=== PATIENT | female | born 1975 | race Caucasian/White ===

== ENCOUNTER 2017-11-08 09:46 | Emergency (ER) | payer SELFPAY ==
[2017-11-08] MEDS ORDERED: ONDANSETRON 4 MG (ODT) TAB ONE (10:21)
[2017-11-08] MEDS ORDERED: HYDROCODONE/APAP 5/325 MG TAB ONE (10:21)
--- NOTE | 2017-11-08 11:01 | RAD REPORT ---
EXAM DESCRIPTION: RAD - Thumb - 11/08/2017 10:40 am CLINICAL HISTORY: Right thumb pain status post fall FINDINGS: No fracture or dislocation is seen
--- NOTE | 2017-11-08 11:19 | ER ---
Nurse's Notes [facility] Name: Alysa Saldaña Age: 42 yrs Sex: Female : 1975 Arrival Date: 11/08/2017 Time: 09:49 Bed 23 Private MD: None, None Diagnosis: Unspecified sprain of right thumb Presentation: 11/08 09:51 Presenting complaint: Patient states: i fell Tuesday, slipped and fell and hurt my R hj thumb, swelling and pain is getting worse; pain is 6/10; reports tingling on the area; denies hitting head and LOC;. Transition of care: patient was not received from another setting of care. Onset of symptoms was November 08, 2017. Risk Assessment: Do you want to hurt yourself or someone else? Patient reports no desire to harm self or others. Initial Sepsis Screen: Does the patient meet any 2 criteria? No. Patient's initial sepsis screen is negative. Does the patient have a suspected source of infection? No. Patient's initial sepsis screen is negative. Care prior to arrival: None. 09:51 Method Of Arrival: Ambulatory 09:51 Acuity: CHETAN 4 hj Triage Assessment: 09:53 General: Appears in no apparent distress. uncomfortable, Behavior is calm, cooperative, hj appropriate for age. Pain: Complains of pain in palmar aspect of distal phalanx of right thumb and palmar aspect of proximal phalanx of right thumb. Musculoskeletal: Reports pain in palmar aspect of distal phalanx of right thumb and palmar aspect of proximal phalanx of right thumb. 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 - Social history:: Smoking status: Patient/guardian denies using tobacco, Patient/guardian denies using alcohol, Smoking status: Patient uses tobacco products. - Ebola Screening: : Patient negative for fever greater than or equal to 101.5 degrees Fahrenheit, and additional compatible Ebola Virus Disease symptoms Patient denies exposure to infectious person Patient denies travel to an Ebola-affected area in the 21 days before illness onset. Screenin:53 Abuse screen: Denies threats or abuse. Denies injuries from another. Nutritional hj screening: No deficits noted. Tuberculosis screening: No symptoms or risk factors identified. Fall Risk None identified. Assessment: 10:00 General: Appears in no apparent distress. comfortable, Behavior is calm, cooperative, aj appropriate for age. Pain: Complains of pain in palmar aspect of proximal phalanx of right thumb and palmar aspect of distal phalanx of right thumb. Neuro: Level of Consciousness is awake, alert, obeys commands, Oriented to person, place, time, situation, Appropriate for age. Respiratory: Airway is patent Respiratory effort is even, unlabored, Respiratory pattern is regular, symmetrical. Derm: Skin is intact, is healthy with good turgor, Skin is pink, warm \T\ dry. normal. Musculoskeletal: Capillary refill < 3 seconds, in bilateral fingers. Swelling present in palmar aspect of distal phalanx of right thumb Reports pain in palmar aspect of proximal phalanx of right thumb and palmar aspect of distal phalanx of right thumb. Vital Signs: 09:54 BP 162 / 100; Pulse 102; Resp 18; Temp 97.8(TE); Pulse Ox 98% on R/A; Weight 86.18 kg; hj Height 5 ft. 4 in. (162.56 cm); Pain 8/10; 11:29 BP 160 / 98; Pulse 99; Resp 16; Pulse Ox 99% on R/A; aj 09:54 Body Mass Index 32.61 (86.18 kg, 162.56 cm) ED Course: 09:49 Patient arrived in ED. mr 09:50 None, None is Private Physician. mr 09:52 Triage completed. hj 09:54 Arm band placed on left wrist. hj 09:55 Patient has correct armband on for positive identification. Bed in low position. Call light in reach. Side rails up X 1. 09:57 Carlota Eduardo, RICHARD is Primary Nurse. aj 10:00 Rashid Solis NP is PHCP. pm1 10:00 Imtiaz Drake MD is Attending Physician. pm1 10:40 Thumb In Process Unspecified. EDMS 10:41 X-ray completed. Portable x-ray completed in exam room. jr1 11:17 Dez Aguiar MD is Referral Physician. pm1 11:29 No provider procedures requiring assistance completed. Patient did not have IV access aj during this emergency room visit. Orthoglass splint: Thumb spica splint applied on right forearm. Done by [facility] Tech. Administered Medications: 10:17 Drug: [place] 5 mg-325 mg 1 tabs Route: PO; aj 11:28 Follow up: Response: No adverse reaction; Pain is decreased aj 10:17 Drug: Zofran 4 mg Route: PO; aj 11:28 Follow up: Response: Pain is decreased aj Outcome: 11:18 Discharge ordered by . pm1 11:29 Discharged to home ambulatory, with family. aj 11: Condition: good 11:29 Discharge instructions given to patient, family, Instructed on discharge instructions, follow up and referral plans. medication usage, Demonstrated understanding of instructions, follow-up care, medications, splint care, Prescriptions given X 1. 11:30 Patient left the ED. thelma Signatures: Dispatcher [employer] EDMS Carlota Eduardo RN RN aj Rivera, Maria mr Ringgold, Jennifer 1 Tirso Bell RN RN hj Marinas, Patrick, NP COMPUTER SUPPORT ANALYST pm1 Corrections: (The following items were deleted from the chart) 09:56 09:54 Pulse 102bpm; Resp 18bpm; Pulse Ox 98% RA; Temp 97.8F Temporal; 86.18 kg; Height hj 5 ft. 4 in.; BMI: 32.6; Pain 8/10; hj
--- NOTE | 2017-11-08 11:19 | EDPHYS ---
Physician Documentation [facility] Name: Alysa Saldaña Age: 42 yrs Sex: Female : 1975 Arrival Date: 11/08/2017 Time: 09:49 Bed 23 Private MD: None, None ED Physician Imtiaz Drake HPI: 11/08 11:14 This 42 yrs old Female presents to ER via Ambulatory with complaints of Right pm1 Thumb Injury. 11:14 The patient or guardian reports pain. The complaints affect the IP of right thumb and pm1 MCP of right thumb. Context: The problem was sustained outdoors, resulted from a fall, from a standing position. 11:15 Onset: The symptoms/episode began/occurred 2 day(s) ago. Modifying factors: The pm1 symptoms are alleviated by elevation, resting, the symptoms are aggravated by movement. Associated signs and symptoms: Pertinent negatives: cyanosis distally, decreased sensation distally, fever, numbness distally, tingling distally. Severity of symptoms: in the emergency department the symptoms are unchanged. The patient has not experienced similar symptoms in the past. The patient has not recently seen a physician. Patient standing and fell on her right hand due to slipping. Patient with pain to the right thumb. 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 - Social history:: Smoking status: Patient/guardian denies using tobacco, Patient/guardian denies using alcohol, Smoking status: Patient uses tobacco products. - Ebola Screening: : Patient negative for fever greater than or equal to 101.5 degrees Fahrenheit, and additional compatible Ebola Virus Disease symptoms Patient denies exposure to infectious person Patient denies travel to an Ebola-affected area in the 21 days before illness onset. ROS: 11:15 Constitutional: Negative for fever, chills, and weight loss, Eyes: Negative for injury, pm1 pain, redness, and discharge, ENT: Negative for injury, pain, and discharge, Neck: Negative for injury, pain, and swelling, Cardiovascular: Negative for chest pain, palpitations, and edema, Respiratory: Negative for shortness of breath, cough, wheezing, and pleuritic chest pain, Abdomen/GI: Negative for abdominal pain, nausea, vomiting, diarrhea, and constipation, Back: Negative for injury and pain. 11:15 Skin: Negative for injury, rash, and discoloration, Neuro: Negative for headache, weakness, numbness, tingling, and seizure. 11:15 MS/extremity: Positive for pain, tenderness, of the right hand and MCP of right thumb and IP of right thumb, Negative for decreased range of motion, deformity. Exam: 11:15 Constitutional: This is a well developed, well nourished patient who is awake, alert, pm1 and in no acute distress. Head/Face: Normocephalic, atraumatic. Eyes: Pupils equal round and reactive to light, extra-ocular motions intact. Lids and lashes normal. Conjunctiva and sclera are non-icteric and not injected. Cornea within normal limits. Periorbital areas with no swelling, redness, or edema. ENT: Nares patent. No nasal discharge, no septal abnormalities noted. Tympanic membranes are normal and external auditory canals are clear. Oropharynx with no redness, swelling, or masses, exudates, or evidence of obstruction, uvula midline. Mucous membranes moist. Neck: Trachea midline, no thyromegaly or masses palpated, and no cervical lymphadenopathy. Supple, full range of motion without nuchal rigidity, or vertebral point tenderness. No Meningismus. Chest/axilla: Normal chest wall appearance and motion. Nontender with no deformity. No lesions are appreciated. Cardiovascular: Regular rate and rhythm with a normal S1 and S2. No gallops, murmurs, or rubs. Normal PMI, no JVD. No pulse deficits. Respiratory: Lungs have equal breath sounds bilaterally, clear to auscultation and percussion. No rales, rhonchi or wheezes noted. No increased work of breathing, no retractions or nasal flaring. Abdomen/GI: Soft, non-tender, with normal bowel sounds. No distension or tympany. No guarding or rebound. No evidence of tenderness throughout. Back: No spinal tenderness. No costovertebral tenderness. Full range of motion. Skin: Warm, dry with normal turgor. Normal color with no rashes, no lesions, and no evidence of cellulitis. 11:15 Musculoskeletal/extremity: Extremities: grossly normal except: noted in the IP of right thumb and MCP of right thumb: tenderness, ROM: intact in all extremities, Circulation is intact in all extremities. Sensation intact. Vital Signs: 09:54 BP 162 / 100; Pulse 102; Resp 18; Temp 97.8(TE); Pulse Ox 98% on R/A; Weight 86.18 kg; hj Height 5 ft. 4 in. (162.56 cm); Pain 8/10; 11:29 BP 160 / 98; Pulse 99; Resp 16; Pulse Ox 99% on R/A; aj 09:54 Body Mass Index 32.61 (86.18 kg, 162.56 cm) hj MDM: 10:00 Patient medically screened. pm1 11:17 Data reviewed: vital signs. Data interpreted: Pulse oximetry: on room air is 98 %. pm1 Interpretation: normal. Counseling: I had a detailed discussion with the patient and/or guardian regarding: the historical points, exam findings, and any diagnostic results supporting the discharge/admit diagnosis, radiology results, the need for outpatient follow up, to return to the emergency department if symptoms worsen or persist or if there are any questions or concerns that arise at home. 11/08 10:40 Order name: Thumb; Complete Time: 11:09 EDNE 11/08 10:11 Order name: Thumb Spica Splint; Complete Time: 11:28 pm1 Administered Medications: 10:17 Drug: [place] 5 mg-325 mg 1 tabs Route: PO; aj 11:28 Follow up: Response: No adverse reaction; Pain is decreased aj 10:17 Drug: Zofran 4 mg Route: PO; aj 11:28 Follow up: Response: Pain is decreased aj Disposition: 11/09 06:35 Co-signature as Attending Physician, Imtiaz Drake MD I agree with the assessment and joseph plan of care. Disposition: 11/08/17 11:18 Discharged to Home. Impression: Unspecified sprain of right thumb. - Condition is Stable. - Discharge Instructions: Cast or Splint Care, Adult, Finger Sprain, Adult. - Prescriptions for Tylenol- Codeine #3 300-30 mg Oral Tablet - take 2 tablets by ORAL route every 6 hours As needed; 20 tablet. - Medication Reconciliation Form, Thank You Letter, Antibiotic Education, Prescription Opioid Use form. - Follow up: Emergency Department; When: As needed; Reason: Worsening of condition. Follow up: Dez Aguiar MD; When: 5 - 6 days; Reason: Recheck today's complaints, Continuance of care, Re-evaluation by your physician. - Problem is new. - Symptoms have improved. Signatures: Dispatcher [employer] [facility] Carlota Eduardo RN RN aj Anderson, Corey, MD MD cha Joaquin, Henry, RN RN hj Marinas, Patrick, PRE FABRICATOR PRE FABRICATOR pm1 Corrections: (The following items were deleted from the chart) 11/08 10:40 10:03 Hand Right 3 View+RAD.RAD.BRZ ordered. [facility] 11:30 11:18 11/08/2017 11:18 Discharged to Home. Impression: Unspecified sprain of right aj thumb. Condition is Stable. Forms are Medication Reconciliation Form, Thank You Letter, Antibiotic Education, Prescription Opioid Use. Follow up: Emergency Department; When: As needed; Reason: Worsening of condition. Follow up: Dez Aguiar; When: 5 - 6 days; Reason: Recheck today's complaints, Continuance of care, Re-evaluation by your physician. Problem is new. Symptoms have improved. pm1
== END 2017-11-08 11:30 | disposition home or self-care (01) ==
LOC: ER 09:46
DX: S63.601A Unspecified sprain of right thumb, initial encounter (principal); W19.XXXA Unspecified fall, initial encounter; Y93.9 Activity, unspecified; Y92.89 Other specified places as the place of occurrence of the external cause; Z72.0 Tobacco use
CPT/HCPCS: 99284

== ENCOUNTER 2017-12-30 16:09 | Emergency (ER) | payer SELFPAY ==
--- OUTSIDE RECORDS SUMMARY | 2017-12-30 16:12 | XMS REPORT | Clinical Summary ---
:1975 Author Organization [facility] Address [address] [place] [address] Care Team Providers Name Role Phone Unavailable Primary Care Provider Unavailable Allergies No Known Allergies Current Medications Prescription Sig. Disp. Refills Start Date End Date Status acetaminophen-codeine Take 1 tablet by 30 tablet 0 07/14/2016 Active (TYLENOL/CODEINE #3) mouth every 4 300-30 mg per hours as needed tabletIndications: Pain for Pain. of left upper extremity ibuprofen (MOTRIN) 800 Take 1 tablet by 30 tablet 0 07/14/2016 Active mg tabletIndications: mouth every 8 Pain of left upper hours as needed extremity for Pain. Active Problems Problem Noted Date Pain of left upper extremity Encounters Date Type Specialty Care Team Description 10/25/2017 - Emergency Emergency Medicine Anamaria Ybarra, Epigastric pain (Primary Dx); 10/26/2017 Non-intractable vomiting with nausea, unspecified vomiting type after 12/29/2016 Social History Tobacco Use Types Packs/Day Years Used Date Never Assessed Sex Assigned at Date Recorded Not on file Last Filed Vital Signs Vital Sign Reading Time Taken Blood Pressure 174/104 10/26/2017 3:50 AM CDT Pulse 66 10/26/2017 3:50 AM CDT Temperature 37.3 C (99.1 F) 10/26/2017 3:50 AM CDT Respiratory Rate 15 10/26/2017 3:50 AM CDT Oxygen Saturation 98% 10/26/2017 3:50 AM CDT Inhaled Oxygen Concentration - - Weight 91.2 kg (201 lb 1.6 oz) 10/25/2017 9:43 PM CDT Height - - Body Mass Index - - Plan of Treatment Health Maintenance Due Date Last Done Comments Breast Cancer Scrn (Yearly) 2014 IMM Influenza Seasonal Nov to April (>/=19 11/28/2017 yrs) Cervical Cancer Scrn (3 Yrs) 10/25/2020 10/25/2017, 10/25/2017 Procedures Procedure Name Priority Date/Time Associated Diagnosis Comments TROPONIN I POC Routine 10/26/2017 1:54 AM Results for this CDT procedure are in the results section. 12 LEAD EKG Routine 10/26/2017 12:02 AM Results for this CDT procedure are in the results section. XRAY CHEST 1 VIEW STAT 10/25/2017 11:58 PM Epigastric pain Results for this CDT procedure are in the results section. BMP POC Routine 10/25/2017 11:22 PM Results for this CDT procedure are in the results section. TROPONIN I POC Routine 10/25/2017 11:03 PM Results for this CDT procedure are in the results section. PT/INR/PTT STAT 10/25/2017 10:58 PM Results for this CDT procedure are in the results section. LIPASE STAT 10/25/2017 10:58 PM Results for this CDT procedure are in the results section. LIVER PROFILE STAT 10/25/2017 10:58 PM Results for this CDT procedure are in the results section. CBC/DIFF STAT 10/25/2017 10:58 PM Results for this CDT procedure are in the results section. 12 LEAD EKG Routine 10/25/2017 9:49 PM Results for this CDT procedure are in the results section. after 12/29/2016 Results TROPONIN I POC (10/26/2017 1:54 AM)Only the most recent of2 resultswithin the time period is included. 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 Otherwise, no acute cardiopulmonary disease. Signed By: Kenrick French MD, 10/26/2017 12:50 AM Narrative Performed At [facility] EXAM: XR CHEST 1 VIEW DATE:10/26/2017 12:04 AM INDICATION: epigastric pain COMPARISON: None TECHNIQUE:Single frontal view of the chest DISCUSSION:The lungs are clear. The heart is not enlarged and the pulmonary vasculature is normal. There is no pneumothorax nor excess pleural fluid. Mildly displaced left posterior third through sixth rib fractures, with evidence of callus formation. Cervical fusion hardware partially visualized. Procedure Note Interface, Rad/Mammog In - 10/26/2017 12:55 AM CDT EXAM: XR CHEST 1 VIEW DATE: 10/26/2017 12:04 AM INDICATION: epigastric pain COMPARISON: None TECHNIQUE: Single frontal view of the chest DISCUSSION: The lungs are clear. The heart is not enlarged and the pulmonary vasculature is normal. There is no pneumothorax nor excess pleural fluid. Mildly displaced left posterior third through sixth rib fractures, with evidence of callus formation. Cervical fusion hardware partially visualized. IMPRESSION IMPRESSION: Subacute left posterior third through sixth rib fractures. Otherwise, no acute cardiopulmonary disease. Signed By: Kenrick French MD, 10/26/2017 12:50 AM Performing Organization Address [facility] Phone Number [facility] BMP POC (10/25/2017 11:22 PM) CO2 POC 29Comment: Physician 21 - 32 mmol/L [facility] 1 Notified Chloride POC 102 98 - 107 mmol/L [facility] 1 Potassium POC 3.5 3.50 - 5.10 mmol/L [facility] 1 Sodium POC 142 136 - 145 mmol/L [facility] 1 Glucose POC 79 74 - 106 mg/dL [facility] 1 Urea Nitrogen POC 4 (L) 7 - 18 mg/dL [facility] 1 Creatinine POC 0.7 0.6 - 1.3 mg/dL [facility] 1 Calcium Ionized POC 1.18 1.15 - 1.29 mmol/L [facility] 1 Hemoglobin POC 15.3 12.0 - 16.0 g/dL [facility] 1 Hematocrit POC 45.0 37.0 - 47.0 % [facility] GFR, Estimated >60 mL/min/1.73 m2 [facility] 1 GFR, Estim, Afr-Am >60 mL/min/1.73 m2 [facility] 1 Performing Organization Address [facility] Phone Number [facility] 1 PT/INR/PTT (10/25/2017 10:58 PM) PT 11.8 11.8 - 15.0 Seconds [facility] IN[facility] 0.9 [facility] 2 SUGGESTED THERAPEUTIC RANGES: INR 2.0-3.0 for MODERATE INTENSITY ANTICOAGULATION INR 2.5-3.5 for HIGH INTENSITY ANTICOAGULATION PTT 29.3 23.6 - 36.4 Seconds [facility] 2 Specimen Blood Performing Organization Address [facility] Phone [facility] 2 LIVER PROFILE (10/25/2017 10:58 PM) T Protein 7.7 6.4 - 8.2 g/dL [facility] 2 Albumin 3.5 3.4 - 5.0 g/dL [facility] 2 T Bilirubin 0.4 0.2 - 1.0 mg/dL [facility] 2 Alk Phos 163 (H) 45 - 117 U/L [facility] 2 AST 151 (H) 15 - 37 U/L [facility] 2 ALT 201 (H) 12 - 78 U/L [facility] 2 D Bilirubin 0.1 0.0 - 0.2 mg/dL [facility] 2 Specimen Blood Performing Organization Address [facility] Phone Number [facility] 2 LIPASE (10/25/2017 10:58 PM) Lipase 334 73 - 393 U/L [facility] 2 Specimen Blood Performing Organization Address [facility] Phone Number [facility] 2 CBC/DIFF (10/25/2017 10:58 PM) WBC 11.5 (H) 4.5 - 11.0 K/uL [facility] 2 RBC 4.74 4.20 - 5.40 M/uL [facility] 2 Hemoglobin 14.3 12.0 - 16.0 g/dL [facility] 2 Hematocrit 43.3 37.0 - 47.0 % [facility] 2 MCV 91 82 - 92 fL [facility] 2 MCH 30.2 27.0 - 32.0 pg [facility] 2 MCHC 33.0 32.0 - 36.0 g/dL [facility] 2 RDW 52.3 (H) 36.4 - 46.3 fL [facility] 2 Platelet 211 150 - 400 K/uL [facility] 2 Mean Platelet Volume 11.6 9.4 - 12.4 fL [facility] 2 Percent NRBC 0.0 [facility] 2 Absolute NRBC 0.00 [facility] 2 Neutrophil 63.9 34.0 - 70.0 % [facility] 2 Lymphocyte 25.6 20.0 - 50.0 % [facility] 2 Monocyte 8.9 5.0 - 12.0 % [facility] 2 Eosinophil 1.0 0.7 - 5.0 % [facility] 2 Basophil 0.3 0.1 - 1.2 % [facility] 2 Pct Immat Gran 0.3 0.0 - 0.5 [facility] 2 Neutrophil, Abs 7.36 (H) 1.56 - 6.13 K/uL [facility] 2 Lymphocyte, Abs 2.95 1.18 - 3.74 K/uL [facility] 2 Monocyte, Abs 1.03 (H) 0.24 - 0.36 K/uL [facility] 2 Eosinophil, Abs 0.12 0.04 - 0.36 K/uL [facility] 2 Basophil, Abs 0.03 0.01 - 0.08 K/uL [facility] 2 Absol Immat Gran 0.03 0.00 - 0.03 K/uL [facility] 2 Specimen Blood Performing Organization Address City/State/Zipcode Phone Number MISYS [facility] 2 12 LEAD EKG (10/25/2017 9:49 PM) 12 LEAD EKG FOR [facility] SMS Test Date:2017-10-25 Pat Name: DG SALDAÑA Department: : 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
--- OUTSIDE RECORDS SUMMARY | 2017-12-30 16:12 | XMS REPORT ---
:1975 [facility] [address] [place] [address] Care Team Providers Name Role Phone [facility] Unavailable Unavailable Payers Payer Name Policy Type Policy Number Effective Date Expiration Date Problems This patient has no known problems. Allergies, Adverse Reactions, Alerts Allergy Allergy Status Severity Reaction(s) Onset Inactive Treating Comments Name Type Date Date Clinician No Known DA Active U 2017-09 Allergies 00:00:0 0 Medications This patient has no known medications. Encounters Start End Encounter Admission Attending Care Care Encounter Date/Time Date/Time Type Type Clinicians Facility Department ID 2017-10-25 2017-10-25 Emergency [facility] [id number] 23:30:27 23:30:27 2017-10-25 2017-10-25 Emergency [facility] [id number] 21:51:50 21:51:50 2016-07-14 2016-07-14 Emergency [facility] [id number] 14:16:54 14:16:54 2016-07-14 2016-07-14 Emergency [facility] [id number] 11:09:42 11:09:42 Results Test Description Test Time Test Comments Text Results Atomic Results Result Comments HEPATIC FUNCTION PANEL 2017-10-27 04:12:00 Test Item Value Reference Range Comments TOTAL PROTEIN (BEAKER) (test aukm=019) 6.7 gm/dL 6.0-8.3 Specimen slightly hemolyzed ALBUMIN (BEAKER) (test rkho=8347) 3.4 g/dL 3.5-5.0 Specimen slightly hemolyzed BILIRUBIN TOTAL (BEAKER) (test 0.3 mg/dL 0.2-1.2 Specimen slightly hemolyzed sqhu=168) BILIRUBIN DIRECT (BEAKER) (test 0.1 mg/dL 0.1-0.5 Specimen slightly hemolyzed gzzc=191) ALKALINE PHOSPHATASE (BEAKER) (test 126 U/L 40-150 lvlp=003) AST (SGOT) (BEAKER) (test lssg=404) 101 U/L 5-34 Specimen slightly hemolyzed ALT (SGPT) (BEAKER) (test omhu=304) 142 U/L 6-55 Specimen slightly hemolyzed TROPONIN [id number] 20:53:00 Test Item Value Reference Range Comments TROPONIN I (BEAKER) (test fynq=891) < ng/mL 0.00-0.03 Troponin I (TnI) levels must be interpreted in the context of the presenting symptoms and the clinical findings. Elevated TnI levels indicate myocardial damage, but are not specific for ischemic heart disease. Elevated TnI levels are seen in patients with other cardiac conditions (including myocarditis and congestive heart failure), and slight TnI elevations occur in patients with other conditions, including sepsis, renal failure, acidosis, acute neurological disease, and persistent tachyarrhythmia.CT, [id number] 16:46:00PO contrastFINAL REPORT INDICATION:42-year-old female with epigastric abdominal pain. COMPARISON: None. TECHNIQUE: CT of the Abdomen and Pelvis WITH intravenous contrast. Enteric contrast was used. The exam was performed according to our department dose-optimization protocol, which includes automated exposure control, adjustments of mA and kV according to patient size. Iterative reconstructions are also sometimes employed. FINDINGS: There is a small amount of fluid in the stomach allowingpartial visualization of the mucosa. No gastric mucosal abnormality demonstrated. The duodenum is collapsed. No gross duodenal abnormality. No perigastric or paraduodenal stranding. No peripancreatic stranding. Patient is status post cholecystectomy. There is no biliary ductal dilatation. Liver, spleen, adrenal glands, kidneys, bladder are unremarkable. Patient is status post hysterectomy. Jejunum, ileum, and colon are unremarkable. Appendix is not identified; there is no secondary evidence of appendicitis. No peritoneal free fluid or free air. There is severe atherosclerosis of the infrarenal abdominal aorta and there are patent stents in both common iliac arteries. No suspicious osseous lesion demonstrated. Moderate to severe disc space and endplate degenerative change at L5-S1 noted. Lower thorax unremarkable. IMPRESSION: No CT explanation for the patient's epigastric pain. Specifically no CTevidence of pancreatitis or duodenitis. No gastric ulcer or evidence of gastritis (though stomach not well distended and therefore not well evaluated). Severe atherosclerosis of the infrarenal abdominal aorta with patent stents in both common iliac arteries. Prior cholecystectomy and hysterectomy. Signed: Tigist Boswell MDReport Verified Date/Time: 10/26/2017 16:46:44 Reading Location: [facility] Diagnostic Imaging Reading Room - [place] [id number] HEPATITIS PANEL, [id number] 10:50:00 Test Item Value Reference Range Comments HEPATITIS A IGM ANTIBODY (BEAKER) (test Nonreactive Nonreactive zywo=978) HEPATITIS B CORE IGM ANTIBODY (BEAKER) (test Nonreactive Nonreactive cxhp=693) HEPATITIS C ANTIBODY (BEAKER) (test fmue=778) Reactive Nonreactive HEPATITIS B SURFACE ANTIGEN (2) (BEAKER) (test Nonreactive Nonreactive lmle=6267) TROPONIN [id number] 08:46:00 Test Item Value Reference Range Comments TROPONIN I (BEAKER) (test wfzl=205) < ng/mL 0.00-0.03 Troponin I (TnI) levels must be interpreted in the context of the presenting symptoms and the clinical findings. Elevated TnI levels indicate myocardial damage, but are not specific for ischemic heart disease. Elevated TnI levels are seen in patients with other cardiac conditions (including myocarditis and congestive heart failure), and slight TnI elevations occur in patients with other conditions, including sepsis, renal failure, acidosis, acute neurological disease, and persistent tachyarrhythmia.[id number] 08:38:00 Test Item Value Reference Range Comments MAGNESIUM (BEAKER) (test jbsa=114) 1.9 mg/dL 1.6-2.6 BASIC METABOLIC [id number] 08:38:00 Test Item Value Reference Range Comments SODIUM (BEAKER) (test 138 meq/L 136-145 osag=028) POTASSIUM (BEAKER) (test 3.5 meq/L 3.5-5.1 nhtp=958) CHLORIDE (BEAKER) (test 105 meq/L 98-107 kbpw=835) CO2 (BEAKER) (test 25 meq/L 22-29 ixzn=315) BLOOD UREA NITROGEN 7 mg/dL 7-21 (BEAKER) (test anlj=944) CREATININE (BEAKER) (test 0.76 mg/dL 0.57-1.25 syec=652) GLUCOSE RANDOM (BEAKER) 100 mg/dL 70-105 (test ydhr=250) CALCIUM (BEAKER) (test 9.1 mg/dL 8.4-10.2 wtfc=539) EGFR (BEAKER) (test 83 mL/min/1.73 sq m ESTIMATED GFR IS NOT uigm=9977) ACCURATE CREATININE CLEARANCE IN PREDICTING GLOMERULAR FILTRATION RATE. ESTIMATED GFR IS NOT APPLICABLE FOR DIALYSIS PATIENTS. HEPATIC FUNCTION [id number] 08:38:00 Test Item Value Reference Range Comments TOTAL PROTEIN (BEAKER) (test klkq=954) 6.8 gm/dL 6.0-8.3 ALBUMIN (BEAKER) (test ncqm=3659) 3.7 g/dL 3.5-5.0 BILIRUBIN TOTAL (BEAKER) (test ojnb=346) 0.3 mg/dL 0.2-1.2 BILIRUBIN DIRECT (BEAKER) (test mqtb=350) 0.2 mg/dL 0.1-0.5 ALKALINE PHOSPHATASE (BEAKER) (test meaa=721) 138 U/L 40-150 AST (SGOT) (BEAKER) (test wzxa=162) 109 U/L 5-34 ALT (SGPT) (BEAKER) (test myqn=784) 154 U/L 6-55 [id number] 08:38:00 Test Item Value Reference Range Comments LIPASE (BEAKER) (test hyef=447) 73 U/L 8-78 CBC W/PLT COUNT & AUTO [id number] 08:20:00 Test Item Value Reference Range Comments WHITE BLOOD CELL COUNT (BEAKER) (test eqft=739) 8.8 K/ L 3.5-10.5 RED BLOOD CELL COUNT (BEAKER) (test eqtc=005) 4.33 M/ L 3.93-5.22 HEMOGLOBIN (BEAKER) (test bmxo=766) 13.0 GM/DL 11.2-15.7 HEMATOCRIT (BEAKER) (test pgtx=992) 39.9 % 34.1-44.9 MEAN CORPUSCULAR VOLUME (BEAKER) (test unfq=369) 92.1 fL 79.4-94.8 MEAN CORPUSCULAR HEMOGLOBIN (BEAKER) (test 30.0 pg 25.6-32.2 kayy=438) MEAN CORPUSCULAR HEMOGLOBIN CONC (BEAKER) (test 32.6 GM/DL 32.2-35.5 hfau=773) RED CELL DISTRIBUTION WIDTH (BEAKER) (test 15.8 % 11.7-14.4 wmfb=317) PLATELET COUNT (BEAKER) (test vjtf=874) 188 K/CU MM 150-450 MEAN PLATELET VOLUME (BEAKER) (test ukmc=568) 10.8 fL 9.4-12.3 NUCLEATED RED BLOOD CELLS (BEAKER) (test 0 /100 WBC 0-0 etax=456) NEUTROPHILS RELATIVE PERCENT (BEAKER) (test 48 % awur=083) LYMPHOCYTES RELATIVE PERCENT (BEAKER) (test 40 % erpc=140) MONOCYTES RELATIVE PERCENT (BEAKER) (test 9 % gyue=804) EOSINOPHILS RELATIVE PERCENT (BEAKER) (test 2 % olkn=441) BASOPHILS RELATIVE PERCENT (BEAKER) (test 0 % moae=902) NEUTROPHILS ABSOLUTE COUNT (BEAKER) (test 4.22 K/ L 1.56-6.13 nxfh=523) LYMPHOCYTES ABSOLUTE COUNT (BEAKER) (test 3.56 K/ L 1.18-3.74 sqyf=792) MONOCYTES ABSOLUTE COUNT (BEAKER) (test 0.83 K/ L 0.24-0.36 cped=623) EOSINOPHILS ABSOLUTE COUNT (BEAKER) (test 0.16 K/ L 0.04-0.36 hggk=701) BASOPHILS ABSOLUTE COUNT (BEAKER) (test 0.03 K/ L 0.01-0.08 owwz=190) IMMATURE GRANULOCYTES-RELATIVE PERCENT (BEAKER) 0 % 0-1 (test ipxr=0689)
--- OUTSIDE RECORDS SUMMARY | 2017-12-30 16:12 | XMS REPORT | Clinical Summary ---
:1975 Author Organization [facility] Address [address] [place] [address] Care Team Providers Name Role Phone Pcp, No Primary Care Provider Unavailable Allergies No Known Allergies Medications Medication Sig Dispensed Refills Start Date End Date Status gabapentin Take 200 mg by 0 Active (NEURONTIN) 100 MG mouth 3 (three) capsule times daily. aspirin 81 MG EC Take 81 mg by 0 Active tablet mouth daily. clopidogrel Take 75 mg by 0 Active (PLAVIX) 75 mg mouth daily. tablet temazepam Take 15 mg by 0 Active (RESTORIL) 15 mg mouth every capsule night as needed for Sleep. naproxen Take 220 mg by 0 10/26/2017 Discontinued (ALEVE,ANAPROX,MID mouth 2 (two) OL) 220 MG tablet times daily with breakfast and dinner. triamterene-hydroc Take 1 tablet 0 10/26/2017 Discontinued hlorothiazide by mouth daily. (MAXZIDE-25) 37.5-25 mg per tabletIndications: Edema metoprolol Take 1 tablet 30 tablet 3 10/28/2017 11/27/2017 (TOPROL-XL) 25 MG (25 mg total) 24 hr tablet by mouth daily for 30 days. HYDROcodone-acetam Take 1 tablet 30 tablet 0 10/27/2017 11/06/2017 inophen (NORCO by mouth every 5-325) 5-325 mg 6 (six) hours per tablet as needed for Pain for up to 10 days. Max Daily Amount: 4 tablets Active Problems Problem Noted Date Other chronic pain 10/27/2017 Coronary artery disease involving [place] coronary artery of [place] heart 10/26 without angina pectoris Peripheral vascular disease 10/26/2017 Chronic hepatitis C without hepatic coma 10/26/2017 Epigastric pain 10/26/2017 Transaminitis 10/26/2017 Epigastric abdominal pain 10/26/2017 Encounters Date Type Specialty Care Team Description 10/26/2017 - Hospital Encounter General Internal Isela Linares Chronic hepatitis C without hepatic coma (HCC); 10/27/2017 Medicine Nusrat Mcclain, Coronary artery disease involving umkumi[place] coronary artery of [place] heart without angina pectoris; Epigastric abdominal pain; Bridgett, Peripheral vascular disease (HCC); Jaimie Transaminitis MD [address], Kaia Carnes MD after 12/29/2016 Social History Tobacco Use Types Packs/Day Years Used Date Current Every Day Smoker Smokeless Tobacco: Never Used Tobacco Cessation: Ready to Quit: Yes; Counseling Given: No Comments: has cut down to 1/2 ppd.states attempting to quit Alcohol Use Drinks/Week oz/Week Comments No Sex Assigned at Date Recorded Not on file Job Start Date Occupation Industry Not on file Not on file Not on file Travel History Travel Start Travel End No recent travel history available. Last Filed Vital Signs Vital Sign Reading Time Taken Blood Pressure 134/94 10/27/2017 8:51 AM CDT Pulse 99 10/27/2017 8:51 AM CDT Temperature 36.1 C (97 F) 10/27/2017 8:51 AM CDT Respiratory Rate 18 10/27/2017 8:51 AM CDT Oxygen Saturation 97% 10/27/2017 8:51 AM CDT Inhaled Oxygen Concentration - - Weight 91.1 kg (200 lb 14.4 oz) 10/26/2017 6:00 AM CDT Height 162.6 cm (5' 4") 10/26/2017 6:11 PM CDT Body Mass Index 34.48 10/26/2017 6:00 AM CDT Plan of Treatment Not on file Implants Implanted Type Area Knitter Operator Device Shelf Model / Serial / Identifier Expiration Lot Date Dbx Melody,1cc Aseptic - [id number] Bone Left: MUSCULOSKELETAL [id number] / Implanted: Qty: 1 on 08/08/2013 by Mike Moore MD Spine TRANSPLANT [id number] / Cervical Screw,Zephir Self Drilling 4.0x13mm - [id number] Spine Left: MEDTR[employer] SPINAL [id number] / Implanted: Qty: 1 on 08/08/2013 by Mike Moore MD [employer] / Cervical Screw,Zephir Selfdrill 3.5x13mm - [id number] Spine Left: MEDTR[employer] SPINAL [id number] / Implanted: Qty: 4 on 08/08/2013 by Mike Moore MD [employer]ine [employer] BIOLOG[employer] / Cervical Spacer,Corner[employer] Psr Lateral Ports [id number] - [id number] Spine Left: MED[employer] SPINAL 12/18/2020 [id number] / Implanted: Qty: 1 on 08/08/2013 by Mike Moore MD Spine [employer] BIOLOG[employer] / Cervical [id number] Spacer,[employer]ner[employer] Lateral Ports [id number] - [id number] Spine Left: MED[employer] SPINAL 04/25/2021 [id number] / Implanted: Qty: 1 on 08/08/2013 by Mike Moore MD Spine [employer] BIOLOG[employer] / Cervical [id number] Plate,Zephir Ti 42.5mm - [id number] Spine Left: MED[employer] SPINAL [id number] / Implanted: Qty: 1 on 08/08/2013 by Mike Moore MD [employer] BI[employer] / Cervical Procedures Procedure Name Priority Date/Time Associated Comments Diagnosis REPORT OF PROCEDURE - 10/28/2017 9:00 ENDOSCOPY SCAN AM CDT RHYTHM STRIP - SCAN 10/28/2017 9:00 AM CDT ECHOCARDIOGRAM REPORT - 10/27/2017 11:00 SCAN AM CDT 2D ECHO W/ DOPPLER MICHAELA 10/27/2017 7:39 Results for this (CW/PW/COLOR) AM CDT procedure are in the results section. HEPATIC FUNCTION PANEL Routine 10/27/2017 3:33 Results for this AM CDT procedure are in the results section. TROPONIN I STAT 10/26/2017 8:14 Results for this PM CDT procedure are in the results section. CT ABDOMEN/PELVIS WITH STAT 10/26/2017 3:47 Results for this IV CONTRAST PM CDT procedure are in the results section. CBC W/PLT COUNT & AUTO Routine 10/26/2017 8:09 Results for this DIFFERENTIAL AM CDT procedure are in the results section. LIPASE Routine 10/26/2017 8:09 Results for this AM CDT procedure are in the results section. HEPATITIS PANEL, ACUTE Routine 10/26/2017 8:09 Results for this AM CDT procedure are in the results section. CBC W/PLT COUNT & AUTO Routine 10/26/2017 8:09 Results for this DIFFERENTIAL AM CDT procedure are in the results section. HEPATIC FUNCTION PANEL Routine 10/26/2017 8:09 Results for this AM CDT procedure are in the results section. MAGNESIUM Routine 10/26/2017 8:09 Results for this AM CDT procedure are in the results section. BASIC METABOLIC PANEL Routine 10/26/2017 8:09 Results for this (7) AM CDT procedure are in the results section. TROPONIN I Routine 10/26/2017 8:09 Results for this AM CDT procedure are in the results section. ECG 12-LEAD Routine 10/26/2017 6:55 Results for this AM CDT procedure are in the results section. after 12/29/2016 Results EKG-SCANNED (10/28/2017 9:00 AM CDT) Narrative Performed At RHYTHM STRIP - SCAN (10/28/2017 9:00 AM CDT) Narrative Performed At ECHOCARDIOGRAM REPORT - SCAN (10/27/2017 11:00 AM CDT) Narrative Performed At 2D Echo W/Doppler(CW/PW/Color) (10/27/2017 7:39 AM CDT) Ejection Fraction [facility] Narrative Performed At Transthoracic Echocardiography Report (TTE) [facility] Demographics Patient NameSMITH, JENNIFERDate of Study10/27/2017 MANPREET Gender Female Visit [id number] Race Unknown [id number] Number Date of 1975 Charlie Agustin MD Physician Age 42 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 Clinical History HGB 13.0 HCT 39.9 % CAD HEPATITIS C Contrast Medium: Definity. Height: 64 inches Weight: 90.72 kg (200 lbs) BSA: 1.96 m^2 BMI: 34.33 kg/m^2 HR: 76 bpm BP: 172/76 mmHg Summary LV endocardium is adequately visualized with IV ultrasound enhancing agent. Normal left ventricular chamber size. Normal wall thickness. Normal overall left ventricular systolic function. No apparent segmental wall motion abnormalities. Estimated LVEF by qualitative assessment is normal (55-60%) . Normal diastolic function. Unable to estimate peak systolic PA pressure; inadequate TR velocity signal. No evidence of pericardial effusion. Signature Findings Technical Quality: Technically adequate exam. Left Ventricle LV endocardium is adequately visualized with IV ul trasound enhancing agent. Normal left ventricular ch sonya size. Normal wall thickness. Normal overall le ft ventricular systolic function. No apparent se gmental wall motion abnormalities. Estimated LVEF by qualitative assessment is normal (55-60%) . No rmal diastolic function. Left AtriumLA size is mildly enlarged . Right VentricleNormal right ventricle structure and function. Right Atrium Normal right atrium. Aortic Valve Normal AoV structure. Mitral Valve Normal MV structure. Tricuspid ValveA trace of tricuspid regurgitation. Un able to estimate peak systolic PA pressure; in adequate TR velocity signal. Pulmonic Valve Normal PV structure and function by limited views an d Doppler. AortaAortic root size (SInus of Valsalva diameter) is no rmal . PericardiumNo evidence of pericardial effusion. IVC/SVC/PA/PV/PleuralThe estimated RA pressure by IVC dynamics 5-10mmHg . Chambers/Structures Left Atrium LA Dimension: 3.76 cmLA Area: 21.91 cm^2 LA Volume: 67.66 ml LA Vol. Index: 35 ml/m^2 Left Ventricle LVIDd: 4.6 cm LV Septum Diastolic: 1.04 cm LV PW Diastolic: 0.99 cm LVOT Diameter: 2.09 cm Aorta Ao Root S of Sasha.: 3.12 cm Doppler/Quantitative Measurements LVOT Peak Velocity: 1.08 m/s Peak Gradient: 4.66 mmHg Mean Velocity: 0.6 m/sMean Gradient: 1.9 mmHg LVOT Diameter: 2.09 cmLVOT VTI: 19.33 cm LVOT Area: 3.43 cm^2LVOT SV:66.28 ml LVOT CO: 5.04 l/min LVOT CI: 2.57 l/min/m^2 Procedure Note Interface, External Ris In - 10/27/2017 10:03 AM CDT Transthoracic Echocardiography Report (TTE) Demographics Patient Name ALYSA SALDAÑA Date of Study 10/27/2017 MANPREET Gender Female Visit Number [id number] Race Unknown Room Number 725 Number Date of 1975 Referring Kaia Agustin MD Physician 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 Clinical History HGB 13.0 HCT 39.9 % CAD HEPATITIS C Contrast Medium: Definity. Height: 64 inches Weight: 90.72 kg (200 lbs) BSA: 1.96 m^2 BMI: 34.33 kg/m^2 HR: 76 bpm BP: 172/76 mmHg Summary LV endocardium is adequately visualized with IV ultrasound enhancing agent. Normal left ventricular chamber size. Normal wall thickness. Normal overall left ventricular systolic function. No apparent segmental wall motion abnormalities. Estimated LVEF by qualitative assessment is normal (55-60%) . Normal diastolic function. Unable to estimate peak systolic PA pressure; inadequate TR velocity signal. No evidence of pericardial effusion. Signature Findings Technical Quality: Technically adequate exam. Left Ventricle LV endocardium is adequately visualized with IV ultrasound enhancing agent. Normal left ventricular chamber size. Normal wall thickness. Normal overall left ventricular systolic function. No apparent segmental wall motion abnormalities. Estimated LVEF by qualitative assessment is normal (55-60%) . Normal diastolic function. Left Atrium LA size is mildly enlarged . Right Ventricle Normal right ventricle structure and function. Right Atrium Normal right atrium. Aortic Valve Normal AoV structure. Mitral Valve Normal MV structure. Tricuspid Valve A trace of tricuspid regurgitation. Unable to estimate peak systolic PA pressure; inadequate TR velocity signal. Pulmonic Valve Normal PV structure and function by limited views and Doppler. Aorta Aortic root size (SInus of Valsalva diameter) is normal . Pericardium No evidence of pericardial effusion. IVC/SVC/PA/PV/Pleural The estimated RA pressure by IVC dynamics 5-10mmHg . Chambers/Structures Left Atrium LA Dimension: 3.76 cm LA Area: 21.91 cm^2 LA Volume: 67.66 ml LA Vol. Index: 35 ml/m^2 Left Ventricle LVIDd: 4.6 cm LV Septum Diastolic: 1.04 cm LV PW Diastolic: 0.99 cm LVOT Diameter: 2.09 cm Aorta Ao Root S of Sasha.: 3.12 cm Doppler/Quantitative Measurements LVOT Peak Velocity: 1.08 m/s Peak Gradient: 4.66 mmHg Mean Velocity: 0.6 m/s Mean Gradient: 1.9 mmHg LVOT Diameter: 2.09 cm LVOT VTI: 19.33 cm LVOT Area: 3.43 cm^2 LVOT SV:66.28 ml LVOT CO: 5.04 l/min LVOT CI: 2.57 l/min/m^2 Performing Organization Address City/State/Zipcode Phone Number [facility] Hepatic function panel (10/27/2017 3:33 AM CDT)Only the most recent of2 resultswithin the time period is included. Protein, Total 6.7Comment: Specimen 6.0 - 8.3 gm/dL [facility] hemolyzed [facility] Albumin 3.4 (L)Comment: Specimen 3.5 - 5.0 g/dL [facility] slightly hemolyzed [facility] Total Bilirubin 0.3Comment: Specimen 0.2 - 1.2 mg/dL [facility] Bilirubin, Direct 0.1Comment: Specimen 0.1 - 0.5 mg/dL [facility] hemolyzed [facility] Alkaline Phosphatase 126 40 - 150 U/L [facility] AST 101 (H)Comment: Specimen 5 - 34 U/L [facility] hemolyzed [facility] ALT 142 (H)Comment: Specimen 6 - 55 U/L [facility] hemolyzed [facility] Specimen Blood - Arm, Left Performing Organization Address City/[facility] Phone Number [address] [address] CENTER Troponin I (10/26/2017 8:14 PM CDT)Only the most recent of2 resultswithin the time period is included. Troponin I <0.01 0.00 - 0.03 ng/mL [facility] Specimen Blood - Arm, Left Narrative Performed At [facility] Troponin I (TnI) levels must be interpreted [...] failure, acidosis, acute neurological disease, and persistent tachyarrhythmia. Performing Organization Address City/State/[facility] Phone Number [address] abdomen/pelvis with IV contrast (10/26/2017 3:47 PM CDT) Narrative Performed At FINAL REPORT GE [facility] INDICATION: 42-year-old female with epigastric abdominal pain. COMPARISON: None. TECHNIQUE: CT of the Abdomen and Pelvis WITH intravenous contrast. Enteric contrast was used. The exam was performed according to our department dose-optimization protocol, which includes automated exposure control, adjustments of mA and kV according to patient size. Iterative reconstructions are also sometimes employed. FINDINGS: There is a small amount of fluid in the stomach allowing partial visualization of the mucosa. No gastric mucosal [...] for the patient's epigastric pain. Specifically no CT evidence of pancreatitis or duodenitis. No gastric ulcer or evidence of gastritis (though stomach not well distended and therefore not well evaluated). Severe atherosclerosis of the infrarenal abdominal aorta with patent stents in both common iliac arteries. Prior cholecystectomy and hysterectomy. Signed: Francisco Boswell MD Report Verified Date/Time:10/26/2017 16:46:44 Reading Location: [facility] Diagnostic Imaging Reading Room - [place] [address] Procedure Note Interface, External Ris In - 10/26/2017 4:48 PM CDT FINAL REPORT INDICATION: 42-year-old female with epigastric abdominal pain. COMPARISON: None. TECHNIQUE: CT of the Abdomen and Pelvis WITH intravenous contrast. Enteric contrast was used. The exam was performed according to our department dose-optimization protocol, which includes automated exposure control, adjustments of mA and kV according to patient size. Iterative reconstructions are also sometimes employed. FINDINGS: There is a small amount of fluid in the stomach allowing partial visualization of the mucosa. No gastric mucosal [...] for the patient's epigastric pain. Specifically no CT evidence of pancreatitis or duodenitis. No gastric ulcer or evidence of gastritis (though stomach not well distended and therefore not well evaluated). Severe atherosclerosis of the infrarenal abdominal aorta with patent stents in both common iliac arteries. Prior cholecystectomy and hysterectomy. Signed: Francisco Boswell MD Report Verified Date/Time: 10/26/2017 16:46:44 Reading Location: [facility] Diagnostic Imaging Reading Room - [place] [address] Performing Organization Address City/State/Zipcode Phone Number GE RIS CBC with platelet count + automated diff (10/26/2017 8:09 AM CDT) WBC 8.8 3.5 - 10.5 K/L [facility] RBC 4.33 3.93 - 5.22 M/L [facility] Hemoglobin 13.0 11.2 - 15.7 GM/DL [facility] Hematocrit 39.9 34.1 - 44.9 % [facility] MCV 92.1 79.4 - 94.8 fL [facility] MCH 30.0 25.6 - 32.2 pg [facility] MCHC 32.6 32.2 - 35.5 GM/DL [facility] RDW 15.8 (H) 11.7 - 14.4 % [facility] Platelets 188 150 - 450 K/CU MM [facility] MPV 10.8 9.4 - 12.3 fL [facility] nRBC 0 0 - 0 /100 WBC [facility] % Neutros 48 % [facility] % Lymphs 40 % [facility] % Monos 9 % [facility] % Eos 2 % [facility] % Baso 0 % [facility] # Neutros 4.22 1.56 - 6.13 K/L [facility] # Lymphs 3.56 1.18 - 3.74 K/L [facility] # Monos 0.83 (H) 0.24 - 0.36 K/L [facility] # Eos 0.16 0.04 - 0.36 K/L [facility] # Baso 0.03 0.01 - 0.08 K/L [facility] Immature Granulocytes-Relative 0 0 - 1 % [facility] Specimen Blood - Arm, Right Performing Organization Address City/[facility]/Zipcode Phone Number [address] [address] ONG Hepatitis panel, acute (10/26/2017 8:09 AM CDT) Hep A IgM Nonreactive [facility] Hep B C IgM Nonreactive [facility] Hepatitis C Ab Reactive (A) Nonreactive [facility] hepatitis B Surface Ag Nonreactive [facility] Specimen Blood - Arm, Right Performing Organization Address City/[facility]/Zipcode Phone Number [address] [address] [phone] CENTER Magnesium (10/26/2017 8:09 AM CDT) Magnesium 1.9 1.6 - 2.6 mg/dL [facility] Specimen Blood - Arm, Right Performing Organization Address [facility] Phone Number [address] [address] CENTER Lipase (10/26/2017 8:09 AM CDT) Lipase 73 8 - 78 U/L [facility] Specimen Blood - Arm, Right Performing Organization Address [facility] Phone Number [address] [address] CENTER Basic metabolic panel (10/26/2017 8:09 AM CDT) Sodium 138 136 - 145 meq/L [facility] Potassium 3.5 3.5 - 5.1 meq/L [facility] Chloride 105 98 - 107 meq/L [facility] CO2 25 22 - 29 meq/L [facility] BUN 7 7 - 21 mg/dL [facility] Creatinine 0.76 0.57 - 1.25 mg/dL [facility] Glucose 100 70 - 105 mg/dL [facility] Calcium 9.1 8.4 - 10.2 mg/dL [facility] EGFR 83Comment: ESTIMATED GFR IS mL/min/1.73 sq m [facility] NOT ACCURATE CREATININE [facility] CLEARANCE IN PREDICTING GLOMERULAR FILTRATION RATE. ESTIMATED GFR IS NOT APPLICABLE FOR DIALYSIS PATIENTS. Specimen Blood - Arm, Right Performing Organization Address [facility] Phone Number [address] [address] ONG ECG 12 lead (10/26/2017 6:55 AM CDT) Narrative Performed At Ventricular Rate 64 BPM GE [facility]USE Atrial Rate 64 BPM P-R Interval 148 ms QRS Duration 90 ms Q-T Interval 412 ms QTC Calculation(Bazett) 425 ms P [place] 56 degrees R [place] 60 degrees T [place] 80 degrees Normal sinus rhythm Normal ECG When compared with ECG of 08-NOV-2008 12:22, Q waves are no longer seen inferior leads Nonspecific T wave abnormality now evident inaVL Confirmed by MD ALMEIDA YOCHAI ([id number]) on 10/26/2017 7:52:47 AM Procedure Note Interface, External Ris In - 10/26/2017 7:52 AM CDT Ventricular Rate 64 BPM Atrial Rate 64 BPM P-R Interval 148 ms QRS Duration 90 ms Q-T Interval 412 ms QTC Calculation(Bazett) 425 ms P [place] 56 degrees R [place] 60 degrees T [place] 80 degrees Normal sinus rhythm Normal ECG When compared with ECG of 08-NOV-2008 12:22, Q waves are no longer seen inferior leads Nonspecific T wave abnormality now evident in aVL Confirmed by MD ALMEIDA YOCHAI ([id number]) on 10/26/2017 7:52:47 AM Performing Organization Address City/State/Zipcode Phone Number [facility] MUSE after 12/29/2016 Advance Directives For more information, please contact:[address] [phone] Code Status Date Activated Date Inactivated Comments Full Code 10/26/2017 5:41 AM 10/27/2017 2:54 PM This code status was determined by: Patient Code ONE 08/08/2013 6:59 AM 08/09/2013 1:32 PM All possible means of support including;cardiac massage, mechanical ventilation, and defibrillation will be used to support life.
[2017-12-30] MEDS ORDERED: FENTANYL CITR 100 MCG/2 ML ONE ×2 (17:07→18:26)
[2017-12-30] MEDS ORDERED: ONDANSETRON 4 MG/2 ML VIAL ONE (17:08)
[2017-12-30 17:29] LABS: Absolute Lymphocytes (CBC) 2.4 K/uL (0.7-4.9); Absolute Monocytes 0.8 K/uL (0.1-1.3); Absolute Neutrophil 5.7 K/uL (1.8-8.0); Basophils % 1.2 % (0-1.3); Eosinophils % 0.9 % (0-4.4); Hematocrit 46.3 % (36.0-45.0); Lymphocytes % 26.6 % (15.3-44.8); MCH 32.4 pg (27.0-35.0); MCV 94.7 fL (80-100); MPV 9.8 fL (7.6-11.3); Monocytes % 8.8 % (3.3-12.3); RBC Red Blood Cell Count 4.89 M/uL (3.86-4.86)
[2017-12-30 17:30] LABS: Protime INR 0.93
[2017-12-30 17:45] LABS: ALT/SGPT 107 U/L (12-78); AST/SGOT 63 U/L (15-37); Albumin 3.8 g/dL (3.4-5.0); Alkaline Phosphatase 165 U/L (45-117); BUN Blood Urea Nitrogen 7 mg/dL (7-18); Bicarbonate 27 mmol/L (21-32); Bilirubin Direct 0.1 mg/dL (0-0.2); Bilirubin Total 0.4 mg/dL (0.2-1.0); Glucose Level 94 mg/dL (74-106); NT PRO-BNP 334 pg/mL (<125); Potassium 3.6 mmol/L (3.5-5.1); Sodium Level 139 mmol/L (136-145); Troponin (Emerg Dept Use Only) < 0.02 ng/mL (0.0-0.045)
[2017-12-30] MEDS ORDERED: KETOROLAC 30 MG/ML INJ ONE (18:26)
--- NOTE | 2017-12-30 18:27 | RAD REPORT ---
EXAM DESCRIPTION: CT - Thorax W/ Con - 12/30/2017 6:04 pm CLINICAL HISTORY: Chest pain status post fall COMPARISON: None TECHNIQUE: Computed axial tomography of the chest was obtained. 100 cc Isovue 300 was administered i ntravenously. All CT scans are performed using dose optimization technique as appropriate and may include automated exposure control or mA/KV adjustment according to patient size. FINDINGS: A pulmonary hematoma is not seen. Mild pulmonary fibrosis suspected Mediastinal hematoma is not visualized. . A pleural effusion is not present. A pericardial effusion is not noted. Old rib fractures are seen IMPRESSION: No acute traumatic injury visualized
--- NOTE | 2017-12-30 18:28 | RAD REPORT ---
EXAM DESCRIPTION: RAD - Clavicle Left - 12/30/2017 5:57 pm CLINICAL HISTORY: Shoulder pain FINDINGS: No fracture or dislocation is seen .
--- NOTE | 2017-12-30 18:29 | RAD REPORT ---
EXAM DESCRIPTION: RAD - Humerus Left - 12/30/2017 5:57 pm CLINICAL HISTORY: Left arm pain status post fall FINDINGS: No acute fracture is seen. Sideplate and screws affix old fractures. Bones are osteoporoti c
--- NOTE | 2017-12-30 18:30 | RAD REPORT ---
EXAM DESCRIPTION: Paolo Single View12/30/2017 5:57 pm CLINICAL HISTORY: Chest pain COMPARISON: none FINDINGS: The lungs appear clear of acute infiltrate. The heart is normal size IMPRESSION: No acute abnormalities displayed
--- NOTE | 2017-12-30 18:40 | ER ---
Nurse's Notes [facility] Name: Alysa Saldaña Age: 42 yrs Sex: Female : 1975 Arrival Date: 12/30/2017 Time: 16:10 Bed 23 Private MD: None, None Diagnosis: Fall (on) (from) other stairs and steps;Pain in left upper arm-s/p fall;Other chest pain-s/p fall;Back Pain from fall Presentation: 12/30 16:22 Presenting complaint: Patient states: She fell out of her camper 2 days ago and landed aj1 on her left shoulder, she was having some pain then, but just tried OTC medications, but now the pain is radiating down her arm and into her hands, as well as into her back and into her chest. States that she has metal and screws in the left arm, she has had 13 surgeries in that arm. Transition of care: patient was not received from another setting of care. Onset of symptoms was December 28, 2017. Risk Assessment: Do you want to hurt yourself or someone else? Patient reports no desire to harm self or others. Initial Sepsis Screen: Does the patient meet any 2 criteria? HR > 90 bpm. No. Patient's initial sepsis screen is negative. Does the patient have a suspected source of infection? No. Patient's initial sepsis screen is negative. Care prior to arrival: None. 16:22 Method Of Arrival: Ambulatory aj1 16:22 Acuity: CHETAN 4 aj1 Triage Assessment: 16:27 General: Appears in no apparent distress. uncomfortable, Behavior is calm, cooperative, aj1 appropriate for age. Pain: Complains of pain in left arm Pain currently is 10 out of 10 on a pain scale. Neuro: Level of Consciousness is awake, alert, obeys commands. Cardiovascular: Patient's skin is warm and dry. Respiratory: Airway is patent Respiratory effort is even, unlabored, Respiratory pattern is regular, symmetrical. MEDICAL LEAD: 16:27 LMP N/A - Hysterectomy aj1 Historical: - Allergies: 16:27 No Known Allergies; aj1 - Home Meds: 16:27 None [Active]; aj1 - PMHx: 16:27 cardiac stents; stents; in each leg; aj1 - PSHx: 16:27 13 surgeries to left arm; ; Hysterectomy; Appendectomy; Cholecystectomy; aj1 Carpal Tunnel Repair; Disc surgery; - Immunization history:: Flu vaccine is not up to date. - Social history:: Smoking status: Patient uses tobacco products, smokes one-half pack cigarettes per day. - Ebola Screening: : Patient denies travel to an Ebola-affected area in the 21 days before illness onset. Screenin:30 Abuse screen: Denies threats or abuse. Nutritional screening: No deficits noted. tw2 Tuberculosis screening: No symptoms or risk factors identified. Fall Risk None identified. Assessment: 16:48 General: Appears in no apparent distress. Behavior is calm, cooperative, appropriate tw2 for age. Pain: Complains of pain in left arm. Neuro: Level of Consciousness is awake, alert, obeys commands, Oriented to person, place, time, situation. Cardiovascular: Denies chest pain, shortness of breath, Capillary refill < 3 seconds Patient's skin is warm and dry. Respiratory: Airway is patent Respiratory effort is even, unlabored, Respiratory pattern is regular, symmetrical. GI: No signs and/or symptoms were reported involving the gastrointestinal system. : No signs and/or symptoms were reported regarding the genitourinary system. EENT: No signs and/or symptoms were reported regarding the EENT system. Derm: No signs and/or symptoms reported regarding the dermatologic system. Musculoskeletal: Range of motion: intact in all extremities, noted deformity in LEFT forearm and arm, with limited mobility to left arm. 18:04 Reassessment: pt not available for vs at this time, pt is still in xray at this time. tw2 18:30 Reassessment: Patient and/or family updated on plan of care and expected duration. Pain tw2 level reassessed. Patient is alert, oriented x 3, equal unlabored respirations, skin warm/dry/pink. pt states "the xray was ok but then the ct is what hurt me" Patient states symptoms have not improved. 18:57 Reassessment: Patient appears in no apparent distress at this time. Patient and/or tw2 family updated on plan of care and expected duration. Pain level reassessed. Patient is alert, oriented x 3, equal unlabored respirations, skin warm/dry/pink. Patient states feeling better. Patient states symptoms have improved. Vital Signs: 16:27 BP 113 / 69; Pulse 98; Resp 18; Temp 97.4; Pulse Ox 98% on R/A; Weight 88.45 kg (R); aj1 Height 5 ft. 4 in. (162.56 cm) (R); Pain 10/10; 18:29 BP 99 / 86; Pulse 78; Resp 18; Pulse Ox 97% on R/A; Pain 10/10; tw2 16:27 Body Mass Index 33.47 (88.45 kg, 162.56 cm) aj1 ED Course: 16:10 Patient arrived in ED. sb2 16:10 None, None is Private Physician. sb2 16:26 Triage completed. aj1 16:27 Arm band placed on Patient placed in an exam room. aj1 16:29 Minerva Forbes, RICHARD is Primary Nurse. tw2 16:30 Imtiaz Resendiz PA is PHCP. cp 16:30 Derek Almonte MD is Attending Physician. cp 16:30 Bed in low position. Call light in reach. Pulse ox on. NIBP on. tw2 17:02 Radiology exam delayed due to lab results not completed at this time. (BUN/Creatinine). sj 17:10 Inserted saline lock: 22 gauge in right forearm, using aseptic technique. ,using tw2 aseptic technique. Per RICHARD Trivedi Blood collected. 17:16 EKG done, by cryptologic technician technical. reviewed by Imtiaz BAER. sm3 17:55 X-ray completed. Patient moved to CT. 17:57 XRAY Chest (1 view) In Process Unspecified. EDMS 17:57 XRAY Humerus LEFT In Process Unspecified. EDMS 17:57 XRAY Clavicle LEFT In Process Unspecified. EDMS 18:04 CT completed. Patient tolerated procedure well. Patient moved back from CT. 2 18:05 CT Chest W/ Con In Process Unspecified. EDMS 18:57 No provider procedures requiring assistance completed. IV discontinued, intact, tw2 bleeding controlled, No redness/swelling at site. Pressure dressing applied. Administered Medications: 17:12 Drug: Zofran 4 mg Route: IVP; Site: right forearm; tw2 18:29 Follow up: Response: No adverse reaction tw2 17:15 Drug: fentaNYL (PF) 25 mcg Route: IVP; Site: right forearm; tw2 18:29 Follow up: Response: No adverse reaction; Pain is unchanged, physician notified tw2 18:22 Drug: TORadol 30 mg Route: IVP; Site: right forearm; tw2 18:57 Follow up: Response: No adverse reaction; Pain is decreased tw2 18:25 Drug: fentaNYL (PF) 25 mcg Route: IVP; Site: right forearm; tw2 18:56 Follow up: Response: No adverse reaction; Pain is decreased tw2 Outcome: 18:40 Discharge ordered by . cp 18:57 Discharged to home ambulatory, with significant other. tw2 18:57 Condition: stable 18:57 Discharge instructions given to patient, significant other, Instructed on discharge instructions, follow up and referral plans. no drinking with medication, no driving heavy equipment, medication usage, Demonstrated understanding of instructions, follow-up care, medications, Prescriptions given X 3. 18:58 Patient left the ED. tw2 Signatures: Dispatcher [employer] EDBessie Singh, RICHARD RN aj1 Azul Mcelroy, Imtiaz Roach PA PA cp Wise, Tara, RN RN tw2 Isabelle Rebolledo2 Rylie Cheng 2 Samina Gilbert 3
--- NOTE | 2017-12-30 18:40 | EDPHYS ---
Physician Documentation [facility] Name: Alysa Saldaña Age: 42 yrs Sex: Female : 1975 Arrival Date: 12/30/2017 Time: 16:10 Bed 23 Private MD: None, None ED Physician Derek Almonte HPI: 12/30 17:05 This 42 yrs old Female presents to ER via Ambulatory with complaints of Fall cp Injury - ARM. 17:05 Details of fall: The patient fell from a height, down approximately 1 stairs, and cp struck a grass-covered surface. 17:05 Onset: The symptoms/episode began/occurred yesterday. Associated injuries: The patient cp sustained injury to the chest, specifically the left lateral posterior chest and left lateral anterior chest, pain with movement, tenderness, left upper arm. Patient reports missing step when walking outside of trailer yesterday causing her to fall onto right side. Patient c/o right upper arm and shoulder pain, right side back and chest pain. 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 - Social history:: Smoking status: Patient uses tobacco products, smokes one-half pack cigarettes per day. - Ebola Screening: : Patient denies travel to an Ebola-affected area in the 21 days before illness onset. ROS: 17:10 Constitutional: Negative for body aches, chills, fever, poor PO intake. cp 17:10 Eyes: Negative for injury, pain, redness, and discharge. cp 17:10 ENT: Negative for drainage from ear(s), ear pain, sore throat, difficulty swallowing, difficulty handling secretions. 17:10 Neck: Negative for pain with movement, pain at rest, stiffness, bony tenderness. 17:10 Cardiovascular: Positive for chest pain, of the left side chest, Negative for edema, palpitations. 17:10 Respiratory: Positive for shortness of breath, Negative for cough, wheezing. 17:10 Abdomen/GI: Negative for abdominal pain, vomiting, diarrhea, constipation, anorexia, black/tarry stool, rectal bleeding. 17:10 Back: Positive for pain at rest, pain with movement, of the left trapezius and left scapular area. 17:10 : Negative for urinary symptoms. 17:10 MS/extremity: Positive for decreased range of motion, pain, paresthesias, tenderness, of the left upper arm. 17:10 Skin: Negative for cellulitis, rash. 17:10 Neuro: Negative for altered mental status, headache, weakness. 17:10 All other systems are negative. Exam: 17:17 ECG was reviewed by the Attending Physician. cp 17:25 Constitutional: The patient appears in no acute distress, alert, awake, cp non-diaphoretic, non-toxic, well developed, well nourished, uncomfortable. 17:25 Head/Face: Normocephalic, atraumatic. cp 17:25 Eyes: Pupils equal round and reactive to light, extra-ocular motions intact. Lids and cp lashes normal. Conjunctiva and sclera are non-icteric and not injected. Cornea within normal limits. Periorbital areas with no swelling, redness, or edema. ENT: Nares patent. No nasal discharge, no septal abnormalities noted. Tympanic membranes are normal and external auditory canals are clear. Oropharynx with no redness, swelling, or masses, exudates, or evidence of obstruction, uvula midline. Mucous membranes moist. Neck: Trachea midline, no thyromegaly or masses palpated, and no cervical lymphadenopathy. Supple, full range of motion without nuchal rigidity, or vertebral point tenderness. No Meningismus. 17:25 Chest/axilla: Inspection: normal, Palpation: crepitus, is not appreciated, tenderness, that is moderate, of the left clavicle, anterior aspect of left upper chest, left lateral posterior chest and left lateral anterior chest, that partially reproduces the patient's complaints. 17:25 Cardiovascular: Rate: normal, Rhythm: regular, Pulses: Pulses are 2+ in right radial artery and left radial artery. Heart sounds: murmur, not appreciated, rub, not appreciated, gallop, not appreciated, JVD: is not appreciated. 17:25 Respiratory: the patient does not display signs of respiratory distress, Respirations: normal, no use of accessory muscles, no retractions, no splinting, no tachypnea, labored breathing, is not present, Breath sounds: are clear throughout, no decreased breath sounds, no stridor, no wheezing. 17:25 Abdomen/GI: Inspection: abdomen appears normal, Bowel sounds: active, all quadrants, cp Palpation: abdomen is soft and non-tender, in all quadrants, rebound tenderness, is not appreciated, voluntary guarding, is not appreciated, involuntary guarding, is not appreciated. 17:25 Back: ROM is normal, vertebral tenderness, is not appreciated. 17:25 Musculoskeletal/extremity: Extremities: grossly normal except: noted in the left upper arm: pain, tenderness, ROM: limited passive range of motion due to pain, in the left shoulder. 17:25 Skin: cellulitis, is not appreciated, no rash present. Vital Signs: 16:27 BP 113 / 69; Pulse 98; Resp 18; Temp 97.4; Pulse Ox 98% on R/A; Weight 88.45 kg (R); aj1 Height 5 ft. 4 in. (162.56 cm) (R); Pain 10/10; 18:29 BP 99 / 86; Pulse 78; Resp 18; Pulse Ox 97% on R/A; Pain 10/10; tw2 16:27 Body Mass Index 33.47 (88.45 kg, 162.56 cm) aj1 MDM: 16:30 Patient medically screened. cp 17:00 Differential diagnosis: contusion, fracture, multiple trauma, rib fracture, chest cp contusion. 18:40 Data reviewed: vital signs, nurses notes, lab test result(s), EKG, radiologic studies, cp CT scan, plain films. 18:40 Test interpretation: by ED physician or midlevel provider: ECG, plain radiologic cp studies. Counseling: I had a detailed discussion with the patient and/or guardian regarding: the historical points, exam findings, and any diagnostic results supporting the discharge/admit diagnosis, lab results, radiology results, to return to the emergency department if symptoms worsen or persist or if there are any questions or concerns that arise at home. ED course: VSS. Radiology studies negative for acute injury or trauma. Will discharge to home for continued monitoring. 12/30 16:56 Order name: Basic Metabolic Panel; Complete Time: 17:54 cp 12/30 17:55 Interpretation: Normal except: GFR 78. cp 11/02 16:56 Order name: CBC with Diff; Complete Time: 17:54 12/30 17:55 Interpretation: Normal except: RBC 4.89; HGB 15.8; HCT 46.3; RDW 16.5. 12/30 16:56 Order name: LFT's; Complete Time: 17:54 12/30 17:56 Interpretation: Normal except: AST 63; ALT 107; ALK 165; GLOB 4.2; A/G 0.9. 12/30 16:56 Order name: Magnesium; Complete Time: 17:54 12/30 16:56 Order name: NT PRO-BNP; Complete Time: 17:54 12/30 17:59 Interpretation: Abnormal: NT PRO-BNP 334. 12/30 16:56 Order name: PT-INR; Complete Time: 17:54 12/30 16:56 Order name: Troponin (emerg Dept Use Only); Complete Time: 17:54 12/30 17:56 Interpretation: TROPED < 0.02; Reviewed. 12/30 16:56 Order name: XRAY Chest (1 view); Complete Time: 18:33 12/30 18:33 Interpretation: Report review. 12/30 16:56 Order name: XRAY Humerus LEFT; Complete Time: 18:33 12/30 18:34 Interpretation: Report reviewed. 12/30 16:56 Order name: XRAY Clavicle LEFT; Complete Time: 18:33 12/30 18:34 Interpretation: Report reviewed. 12/30 16:56 Order name: CT Chest W/ Con; Complete Time: 18:33 12/30 18:35 Interpretation: Report reviewed. 12/30 16:56 Order name: EKG; Complete Time: 16:56 12/30 16:56 Order name: Cardiac monitoring; Complete Time: 16:58 12/30 16:56 Order name: EKG - Nurse/Tech; Complete Time: 17:19 12/30 16:56 Order name: IV Saline Lock; Complete Time: 17:19 12/30 16:56 Order name: Labs collected and sent; Complete Time: 17:19 12/30 16:56 Order name: O2 Per Protocol; Complete Time: 16:58 12/30 16:56 Order name: O2 Sat Monitoring; Complete Time: 16:58 cp 12/30 18:06 Order name: Sling; Complete Time: 18:56 cp EC:17 Rate is 89 beats/min. Rhythm is regular. DC interval is normal. QRS interval is normal. cp QT interval is normal. T waves are Inverted in lead aVL. Interpreted by me. Reviewed by me. Administered Medications: 17:12 Drug: Zofran 4 mg Route: IVP; Site: right forearm; tw2 18:29 Follow up: Response: No adverse reaction tw2 17:15 Drug: fentaNYL (PF) 25 mcg Route: IVP; Site: right forearm; tw2 18:29 Follow up: Response: No adverse reaction; Pain is unchanged, physician notified tw2 18:22 Drug: TORadol 30 mg Route: IVP; Site: right forearm; tw2 18:57 Follow up: Response: No adverse reaction; Pain is decreased tw2 18:25 Drug: fentaNYL (PF) 25 mcg Route: IVP; Site: right forearm; tw2 18:56 Follow up: Response: No adverse reaction; Pain is decreased tw2 Disposition: 12/30/17 18:40 Discharged to Home. Impression: Fall (on) (from) other stairs and steps, Pain in left upper arm - s/p fall, Other chest pain - s/p fall, Back Pain from fall. - Condition is Stable. - Discharge Instructions: Back Pain, Adult, Nonspecific Chest Pain, Shoulder Pain, Shoulder Range of Motion Exercises, Back Exercises. - Prescriptions for Anaprox DS 550 mg Oral Tablet - take 1 tablet by ORAL route every 12 hours As needed; 20 tablet. Cyclobenzaprine 10 mg Oral Tablet - take 1 tablet by ORAL route every 8 hours As needed no driving while taking medication; 20 tablet. Tramadol 50 mg Oral Tablet - take 1 tablet by ORAL route every 8 hours as needed. no driving while taking medication; 20 tablet. - Medication Reconciliation Form, Thank You Letter, Antibiotic Education, Prescription Opioid Use, Family Work Release form. - Follow up: Private Physician; When: 2 - 3 days; Reason: Recheck today's complaints. - Problem is new. - Symptoms have improved. Addendum: 01/02/2018 07:46 Co-signature as Attending Physician, Derek haro Signatures: Dispatcher Med[employer]pexBessie Casiano, RN RN aj1 Derek Almonte MD MD rn Page, Corey, PA PA Minerva Sharpe RN RN tw2 Corrections: (The following items were deleted from the chart) 12/30 18:58 18:40 12/30/2017 18:40 Discharged to Home. Impression: Fall (on) (from) other stairs tw2 and steps; Pain in left upper arm - s/p fall; Other chest pain - s/p fall; Back Pain from fall. Condition is Stable. Forms are Medication Reconciliation Form, Thank You Letter, Antibiotic Education, Prescription Opioid Use. Follow up: Private Physician; When: 2 - 3 days; Reason: Recheck today's complaints. Problem is new. Symptoms have improved. cp
--- NOTE | 2017-12-31 08:26 | EKG ---
Test Date: 2017-12-30 Test Time: 17:06:15 Certified Mortician: EVA MEASUREMENT RESULTS: Intervals: Rate: 89 SD: 144 QRSD: 82 QT: 352 QTc: 428 [place]: P: 68 SD: 144 QRS: 64 T: 79 INTERPRETIVE STATEMENTS: Normal sinus rhythm Normal ECG No previous ECG available for comparison Electronically Signed On 12-31-17 08:26:03 CDT by Jong Beltran
== END 2017-12-30 18:58 | disposition home or self-care (01) ==
LOC: ER 16:09
DX: M79.622 Pain in left upper arm (principal); M54.9 Dorsalgia, unspecified; W17.89XA Other fall from one level to another, initial encounter; Y93.89 Activity, other specified; Y92.008 Other place in unspecified non-institutional (private) residence as the place of occurrence of the external cause; Z95.818 Presence of other cardiac implants and grafts; F17.210 Nicotine dependence, cigarettes, uncomplicated
CPT/HCPCS: 36415; 71045; 71260; 80048; 80076; 83735; 83880; 84484; 85025; 85610; 93005; 96374; 96375; 99284; J2405; J3010; Q9967

== ENCOUNTER 2018-01-13 09:47 | Emergency (ER) | payer SELFPAY ==
--- OUTSIDE RECORDS SUMMARY | 2018-01-13 09:49 | XMS REPORT | Clinical Summary ---
:1975 Author Organization [facility] Address [address] [place] [address] Care Team Providers Name Role Phone Unavailable [...] vomiting with nausea, unspecified vomiting type after 2017 Social History Tobacco Use Types Packs/Day Years [...] procedure are in the results section. after 2017 Results TROPONIN I POC (10/26/2017 1:54 AM)Only the most recent of2 resultswithin the time period is included. 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 Otherwise, no acute cardiopulmonary disease. Signed By: Kenrick French MD, 10/26/2017 12:50 AM Narrative Performed At [facility] EXAM: XR CHEST 1 VIEW DATE:10/26/2017 12:04 [...] MD, 10/26/2017 12:50 AM Performing Organization Address [facility] [place] Number [facility] BMP POC (10/25/2017 11:22 PM) CO2 POC 29Comment: Physician 21 - 32 mmol/L [facility] 1 Notified Chloride POC 102 98 - 107 mmol/L [facility] 1 Potassium POC 3.5 3.50 - 5.10 mmol/L [facility] 1 Sodium POC 142 136 - 145 mmol/L [facility] 1 Glucose POC 79 74 - 106 mg/dL [facility] 1 Urea Nitrogen POC 4 (L) 7 - 18 mg/dL [facility] 1 Creatinine POC 0.7 0.6 - 1.3 mg/dL [facility] 1 Calcium Ionized POC 1.18 1.15 - 1.29 mmol/L [facility] 1 Hemoglobin POC 15.3 12.0 - 16.0 g/dL [facility] 1 Hematocrit POC 45.0 37.0 - 47.0 % [facility] GFR, Estimated >60 mL/min/1.73 m2 [facility] 1 GFR, Estim, Afr-Am >60 mL/min/1.73 m2 [facility] 1 Performing Organization Address [facility] [place] Phone Number [facility] 1 PT/INR/PTT (10/25/2017 10:58 PM) PT 11.8 11.8 - 15.0 Seconds [facility] IN[facility] 0.9 [facility] 2 SUGGESTED THERAPEUTIC RANGES: INR 2.0-3.0 for MODERATE INTENSITY ANTICOAGULATION INR 2.5-3.5 for HIGH INTENSITY ANTICOAGULATION PTT 29.3 23.6 - 36.4 Seconds [facility] 2 Specimen Blood Performing Organization Address [facility] [place] Phone [facility] 2 LIVER PROFILE (10/25/2017 10:58 PM) T Protein 7.7 6.4 - 8.2 g/dL [facility] 2 Albumin 3.5 3.4 - 5.0 g/dL [facility] 2 T Bilirubin 0.4 0.2 - 1.0 mg/dL [facility] 2 Alk Phos 163 (H) 45 - 117 U/L [facility] 2 AST 151 (H) 15 - 37 U/L [facility] 2 ALT 201 (H) 12 - 78 U/L [facility] 2 D Bilirubin 0.1 0.0 - 0.2 mg/dL [facility] 2 Specimen Blood Performing Organization Address [facility] [place] Phone Number [facility] 2 LIPASE (10/25/2017 10:58 PM) Lipase 334 73 - 393 U/L [facility] 2 Specimen Blood Performing Organization Address [facility] [place] Phone Number [facility] 2 CBC/DIFF (10/25/2017 10:58 PM) [...] Performing Organization Address City/State/Zipcode Phone Number [facility] 2 12 LEAD EKG (10/25/2017 9:49 PM) 12 LEAD EKG FOR [facility] SMS Test Date:2017-10-25 Pat Name: DG SALDAÑA Department: : Gender: F 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
--- OUTSIDE RECORDS SUMMARY | 2018-01-13 09:49 | XMS REPORT | Clinical Summary ---
:1975 Author Organization [facility] Address [address] [place] [address] Care Team Providers Name Role Phone Pcp, [...] chronic pain 10/27/2017 Coronary artery disease involving kaw coronary artery of kaw heart 10/26 without angina pectoris Peripheral vascular disease 10/26/2017 Chronic hepatitis C without hepatic coma 10/26/2017 Epigastric pain 10/26/2017 Transaminitis 10/26/2017 Epigastric abdominal pain 10/26/2017 Encounters Date Type Specialty Care Team Description 10/26/2017 - Hospital Encounter General Internal Isela Linares Chronic hepatitis C without hepatic coma (HCC); 10/27/2017 Medicine Nusrat Mcclain, Coronary artery disease involving kaw coronary artery of kaw heart without angina pectoris; Epigastric abdominal pain; Bridgett, Peripheral vascular disease (HCC); Jaimie Transaminitis MD [address], Kaia Carnes MD after 2017 Social History Tobacco Use Types [...] Not on file Implants Implanted Type Area Individual Small Group Instructor Device Shelf Model / Serial / Identifier Expiration Lot Date Dbx Melody,1cc Aseptic - [id number] Bone Left: MUSCULOSKELETAL [id number] / Implanted: Qty: 1 on 08/08/2013 by Mike Moore MD Spine TRANSPLANT [id number] / Cervical Screw,Zephir Self Drilling 4.0x13mm - [id number] Spine Left: MEDTRON[employer] SPINAL [id number] / Implanted: Qty: 1 on 08/08/2013 by Mike Moore MD Spine AND BIOLOGICS / Cervical Screw,Zephir Selfdrill 3.5x13mm - [id number] Spine Left: MEDTR[employer] SPINAL [id number] / Implanted: Qty: 4 on 08/08/2013 by Mike Moore MD Spine AND BIOLOGICS / Cervical Spacer,[employer]ner[employer] Lateral Ports 2v48y07dz - [id number] Spine Left: [employer] SPINAL 12/18/2020 [id number] / Implanted: Qty: 1 on 08/08/2013 by Mike Moore MD Spine AND BIOLOGICS / Cervical [id number] Spacer,[employer] Lateral Ports [id number] - [id number] Spine Left: [employer] SPINAL 04/25/2021 [id number] / Implanted: Qty: 1 on 08/08/2013 by Mike Moore MD Spine AND BIOLOGICS / Cervical [id number] Plate,Zephir Ti 42.5mm - [id number] Spine Left: MEDTR[employer] SPINAL [id number] / Implanted: Qty: 1 on 08/08/2013 by [...] in the results section. after 2017 Results EKG-SCANNED (10/28/2017 9:00 AM CDT) Narrative Performed At RHYTHM STRIP - SCAN (10/28/2017 9:00 AM CDT) Narrative Performed At ECHOCARDIOGRAM REPORT - SCAN (10/27/2017 11:00 AM CDT) Narrative Performed At 2D Echo W/Doppler(CW/PW/Color) (10/27/2017 7:39 AM CDT) Ejection Fraction [facility] Narrative Performed At Transthoracic Echocardiography Report (TTE) [facility] Demographics Patient NameSMITH, JENNIFERDate of Study10/27/2017 MANPREET Gender Female Visit [id number] Race Unknown [id number] Number Date of 1975 Charlie Agustin MD Physician Age 42 year(s) SonographerDeyvi Zaragoza Air Analysis Engineering Technician Ankit Chang MD Physician Procedure Type of [...] Study 10/27/2017 MANPREET Gender Female Visit Number [id number] Race Unknown Room Number 725 Number Date of 1975 Referring Kaia Agustin MD Physician Age 42 year(s) Mycologist Deyvi Zaragoza Air Analysis Engineering Technician Ankit Robb Interpreting Franki Chang MD Physician [...] City/State/Zipcode Phone Number [facility] Hepatic function panel (10/27/2017 3:33 AM CDT)Only the most recent of2 resultswithin the time period is included. Protein, Total 6.7Comment: Specimen 6.0 - 8.3 gm/dL [facility] hemolyzed [facility] Albumin 3.4 (L)Comment: Specimen 3.5 - 5.0 g/dL [facility] slightly hemolyzed [facility] Total Bilirubin 0.3Comment: Specimen 0.2 - 1.2 mg/dL [facility] Bilirubin, Direct 0.1Comment: Specimen 0.1 - 0.5 mg/dL [facility] hemolyzed [facility] Alkaline Phosphatase 126 40 - 150 U/L [facility] AST 101 (H)Comment: Specimen 5 - 34 U/L [facility] hemolyzed [facility] ALT 142 (H)Comment: Specimen 6 - 55 U/L [facility] hemolyzed [facility] Specimen Blood - Arm, Left Performing Organization Address City/[facility] Phone Number [address] [address] [phone] CENTER Troponin I (10/26/2017 8:14 PM CDT)Only the most recent of2 resultswithin the time period is included. Troponin I <0.01 0.00 - 0.03 ng/mL [facility] Specimen Blood - Arm, Left Narrative Performed At [facility] Troponin I (TnI) levels must be interpreted [...] disease, and persistent tachyarrhythmia. Performing Organization Address City/State/[facility] Phone Number [address] [place] [address] abdomen/pelvis with IV contrast (10/26/2017 3:47 [...] MD Report Verified Date/Time:10/26/2017 16:46:44 Reading Location: [facility] Diagnostic Imaging Reading Room - [place] [address] Procedure Note Interface, External Ris In - [...] Report Verified Date/Time: 10/26/2017 16:46:44 Reading Location: [facility] Diagnostic Imaging Reading Room - [place] [address] Performing Organization Address City/State/Zipcode Phone Number GE RIS CBC with platelet count + automated diff (10/26/2017 8:09 AM CDT) WBC 8.8 3.5 - 10.5 K/L [facility] RBC 4.33 3.93 - 5.22 M/L [facility] Hemoglobin 13.0 11.2 - 15.7 GM/DL [facility] Hematocrit 39.9 34.1 - 44.9 % [facility] MCV 92.1 79.4 - 94.8 fL [facility] MCH 30.0 25.6 - 32.2 pg [facility] MCHC 32.6 32.2 - 35.5 GM/DL [facility] RDW 15.8 (H) 11.7 - 14.4 % [facility] Platelets 188 150 - 450 K/CU MM [facility] MPV 10.8 9.4 - 12.3 fL [facility] nRBC 0 0 - 0 /100 WBC [facility] % Neutros 48 % [facility] % Lymphs 40 % [facility] % Monos 9 % [facility] % Eos 2 % [facility] % Baso 0 % [facility] # Neutros 4.22 1.56 - 6.13 K/L [facility] # Lymphs 3.56 1.18 - 3.74 K/L [facility] # Monos 0.83 (H) 0.24 - 0.36 K/L [facility] # Eos 0.16 0.04 - 0.36 K/L [facility] # Baso 0.03 0.01 - 0.08 K/L [facility] Immature Granulocytes-Relative 0 0 - 1 % [facility] Specimen Blood - Arm, Right Performing Organization Address City/[facility] Phone Number [address] [address] [place] Hepatitis panel, acute (10/26/2017 8:09 AM CDT) Hep A IgM HEPATITIS A TEST NEGATIVE Nonreactive [facility] Hep B C IgM NON-REACTIVE Nonreactive [facility] Hepatitis C Ab Reactive (A) Nonreactive [facility] hepatitis B Surface Ag NON-REACTIVE Nonreactive [facility] Specimen Blood - Arm, Right Performing Organization Address [facility]/Zipcode Phone Number [address] [address] [phone] CENTER Magnesium (10/26/2017 8:09 AM CDT) Magnesium 1.9 1.6 - 2.6 mg/dL [facility] Specimen Blood - Arm, Right Performing Organization Address [facility] Phone Number [address] [address] [phone] CENTER Lipase (10/26/2017 8:09 AM CDT) Lipase 73 8 - 78 U/L [facility] Specimen Blood - Arm, Right Performing Organization Address [facility] Phone Number [address] [address] [place] Basic metabolic panel (10/26/2017 8:09 AM CDT) Sodium 138 136 - 145 meq/L [facility] Potassium 3.5 3.5 - 5.1 meq/L [facility] Chloride 105 98 - 107 meq/L [facility] CO2 25 22 - 29 meq/L [facility] BUN 7 7 - 21 mg/dL [facility] Creatinine 0.76 0.57 - 1.25 mg/dL [facility] Glucose 100 70 - 105 mg/dL [facility] Calcium 9.1 8.4 - 10.2 mg/dL [facility] EGFR 83Comment: ESTIMATED GFR IS mL/min/1.73 sq m [facility] NOT ACCURATE CREATININE [facility] CENTER CLEARANCE IN PREDICTING GLOMERULAR FILTRATION RATE. ESTIMATED GFR IS NOT APPLICABLE FOR DIALYSIS PATIENTS. Specimen Blood - Arm, Right Performing Organization Address [facility] Phone Number [address] [address] [place] ECG 12 lead (10/26/2017 6:55 AM CDT) Narrative Performed At Ventricular Rate 64 BPM GE MUSE Atrial Rate 64 BPM P-R Interval 148 ms QRS Duration 90 ms Q-T Interval 412 ms QTC Calculation(Bazett) 425 ms P [place] 56 degrees R [place] 60 degrees T [place] 80 degrees Normal sinus rhythm Normal ECG When compared with ECG of 08-NOV-2008 12:22, Q waves are no longer seen inferior leads Nonspecific T wave abnormality now evident inaVL Confirmed by MD JUAN PABLO, YOHANNES ([id number]) on 10/26/2017 7:52:47 AM Procedure Note Interface, External Ris In - 10/26/2017 7:52 AM CDT Ventricular Rate 64 BPM Atrial Rate 64 BPM P-R Interval 148 ms QRS Duration 90 ms Q-T Interval 412 ms QTC Calculation(Bazett) 425 ms P [place] 56 degrees R [place] 60 degrees T [place] 80 degrees Normal sinus rhythm Normal ECG When compared with ECG of 08-NOV-2008 12:22, Q waves are no longer seen inferior leads Nonspecific T wave abnormality now evident in aVL Confirmed by MD JUAN PABLO, YOHANNES ([id number]) on 10/26/2017 7:52:47 AM Performing Organization Address City/State/Zipcode Phone Number GE MUSE after 2017 Advance Directives For more information, please contact:[address] [phone] Code Status Date Activated Date Inactivated Comments Full Code 10/26/2017 5:41 AM 10/27/2017 2:54 PM This code status was determined by: Patient Code ONE 08/08/2013 6:59 AM 08/09/2013 1:32 PM All possible means of support including;cardiac massage, mechanical ventilation, and defibrillation will be used to support life.
--- OUTSIDE RECORDS SUMMARY | 2018-01-13 09:49 | XMS REPORT ---
:1975 [facility] Address [address] [place] [address] Care Team Providers Name Role Phone LOVE [...] Clinicians Facility Department ID 2017-10-25 2017-10-25 Emergency [facility] [id number] 23:30:27 23:30:27 2017-10-25 2017-10-25 Emergency [facility] [id number] 21:51:50 21:51:50 2016-07-14 2016-07-14 Emergency [facility] [id number] 14:16:54 14:16:54 2016-07-14 2016-07-14 Emergency [facility] [id number] 11:09:42 11:09:42 Results Test Description Test Time Test Comments Text Results Atomic Results Result Comments HEPATIC FUNCTION PANEL 2017-10-27 04:12:00 Test Item Value Reference Range Comments TOTAL PROTEIN (BEAKER) (test aqab=811) 6.7 gm/dL 6.0-8.3 Specimen slightly hemolyzed ALBUMIN (BEAKER) (test qnvo=8517) 3.4 g/dL 3.5-5.0 Specimen slightly hemolyzed BILIRUBIN TOTAL (BEAKER) (test 0.3 mg/dL 0.2-1.2 Specimen slightly hemolyzed gfci=441) BILIRUBIN DIRECT (BEAKER) (test 0.1 mg/dL 0.1-0.5 Specimen slightly hemolyzed pkhj=538) ALKALINE PHOSPHATASE (BEAKER) (test 126 U/L 40-150 svhd=915) AST (SGOT) (BEAKER) (test nnhq=642) 101 U/L 5-34 Specimen slightly hemolyzed ALT (SGPT) (BEAKER) (test kjnm=311) 142 U/L 6-55 Specimen slightly hemolyzed TROPONIN [id number] 20:53:00 Test Item Value Reference Range Comments TROPONIN I (BEAKER) (test kxlu=295) < ng/mL 0.00-0.03 Troponin I (TnI) levels [...] acidosis, acute neurological disease, and persistent tachyarrhythmia.CT, [id number] 16:46:00PO contrastFINAL REPORT INDICATION:42-year-old female with epigastric [...] MDReport Verified Date/Time: 10/26/2017 16:46:44 Reading Location: [facility] Diagnostic Imaging Reading Room - [place] [address] HEPATITIS PANEL, [id number] 10:50:00 Test Item Value Reference Range Comments HEPATITIS A IGM ANTIBODY (BEAKER) (test Nonreactive Nonreactive jfsm=346) HEPATITIS B CORE IGM ANTIBODY (BEAKER) (test Nonreactive Nonreactive yhxv=424) HEPATITIS C ANTIBODY (BEAKER) (test xkdr=702) Reactive Nonreactive HEPATITIS B SURFACE ANTIGEN (2) (BEAKER) (test Nonreactive Nonreactive kgdv=4872) TROPONIN [id number] 08:46:00 Test Item Value Reference Range Comments TROPONIN I (BEAKER) (test mdtb=971) < ng/mL 0.00-0.03 Troponin I (TnI) levels [...] failure, acidosis, acute neurological disease, and persistent tachyarrhythmia.[id number] 08:38:00 Test Item Value Reference Range Comments MAGNESIUM (BEAKER) (test bmpy=481) 1.9 mg/dL 1.6-2.6 BASIC METABOLIC [id number] 08:38:00 Test Item Value Reference Range Comments SODIUM (BEAKER) (test 138 meq/L 136-145 kuwh=583) POTASSIUM (BEAKER) (test 3.5 meq/L 3.5-5.1 zrye=198) CHLORIDE (BEAKER) (test 105 meq/L 98-107 rivi=301) CO2 (BEAKER) (test 25 meq/L 22-29 uxtv=287) BLOOD UREA NITROGEN 7 mg/dL 7-21 (BEAKER) (test gsst=692) CREATININE (BEAKER) (test 0.76 mg/dL 0.57-1.25 wvus=523) GLUCOSE RANDOM (BEAKER) 100 mg/dL 70-105 (test tlay=440) CALCIUM (BEAKER) (test 9.1 mg/dL 8.4-10.2 qeiq=752) EGFR (BEAKER) (test 83 mL/min/1.73 sq m ESTIMATED GFR IS NOT uzun=5737) ACCURATE CREATININE CLEARANCE IN PREDICTING GLOMERULAR FILTRATION RATE. ESTIMATED GFR IS NOT APPLICABLE FOR DIALYSIS PATIENTS. HEPATIC FUNCTION [id number] 08:38:00 Test Item Value Reference Range Comments TOTAL PROTEIN (BEAKER) (test yopg=214) 6.8 gm/dL 6.0-8.3 ALBUMIN (BEAKER) (test wzfu=1921) 3.7 g/dL 3.5-5.0 BILIRUBIN TOTAL (BEAKER) (test iqmt=076) 0.3 mg/dL 0.2-1.2 BILIRUBIN DIRECT (BEAKER) (test itoo=745) 0.2 mg/dL 0.1-0.5 ALKALINE PHOSPHATASE (BEAKER) (test pwgc=340) 138 U/L 40-150 AST (SGOT) (BEAKER) (test edex=939) 109 U/L 5-34 ALT (SGPT) (BEAKER) (test ruaq=135) 154 U/L 6-55 [id number] 08:38:00 Test Item Value Reference Range Comments LIPASE (BEAKER) (test mrql=563) 73 U/L 8-78 CBC W/PLT COUNT & AUTO [id number] 08:20:00 Test Item Value Reference Range Comments WHITE BLOOD CELL COUNT (BEAKER) (test rgrl=747) 8.8 K/ L 3.5-10.5 RED BLOOD CELL COUNT (BEAKER) (test lxjd=482) 4.33 M/ L 3.93-5.22 HEMOGLOBIN (BEAKER) (test npgk=898) 13.0 GM/DL 11.2-15.7 HEMATOCRIT (BEAKER) (test szzm=927) 39.9 % 34.1-44.9 MEAN CORPUSCULAR VOLUME (BEAKER) (test ezpm=357) 92.1 fL 79.4-94.8 MEAN CORPUSCULAR HEMOGLOBIN (BEAKER) (test 30.0 pg 25.6-32.2 swnl=963) MEAN CORPUSCULAR HEMOGLOBIN CONC (BEAKER) (test 32.6 GM/DL 32.2-35.5 rton=806) RED CELL DISTRIBUTION WIDTH (BEAKER) (test 15.8 % 11.7-14.4 qdyp=698) PLATELET COUNT (BEAKER) (test javl=187) 188 K/CU MM 150-450 MEAN PLATELET VOLUME (BEAKER) (test nlwz=100) 10.8 fL 9.4-12.3 NUCLEATED RED BLOOD CELLS (BEAKER) (test 0 /100 WBC 0-0 mdqk=781) NEUTROPHILS RELATIVE PERCENT (BEAKER) (test 48 % sjuk=417) LYMPHOCYTES RELATIVE PERCENT (BEAKER) (test 40 % skjl=379) MONOCYTES RELATIVE PERCENT (BEAKER) (test 9 % fjiw=217) EOSINOPHILS RELATIVE PERCENT (BEAKER) (test 2 % nlrh=432) BASOPHILS RELATIVE PERCENT (BEAKER) (test 0 % oblw=153) NEUTROPHILS ABSOLUTE COUNT (BEAKER) (test 4.22 K/ L 1.56-6.13 xjyy=252) LYMPHOCYTES ABSOLUTE COUNT (BEAKER) (test 3.56 K/ L 1.18-3.74 cqsq=481) MONOCYTES ABSOLUTE COUNT (BEAKER) (test 0.83 K/ L 0.24-0.36 ikbn=719) EOSINOPHILS ABSOLUTE COUNT (BEAKER) (test 0.16 K/ L 0.04-0.36 lpfx=599) BASOPHILS ABSOLUTE COUNT (BEAKER) (test 0.03 K/ L 0.01-0.08 mtly=944) IMMATURE GRANULOCYTES-RELATIVE PERCENT (BEAKER) 0 % 0-1 (test ccbb=0753)
[2018-01-13] MEDS ORDERED: HYDROCODONE/APAP 5/325 MG TAB ONE (11:03)
[2018-01-13] MEDS ORDERED: DEXAMETHASONE 4 MG/ML VIAL ONE (11:04)
--- NOTE | 2018-01-13 11:48 | ER ---
Nurse's Notes [facility] Name: Alysa Saldaña Age: 43 yrs Sex: Female : 1975 Arrival Date: 01/13/2018 Time: 09:48 Bed 12 Private MD: None, None Diagnosis: Strain of muscle(s) and tendon(s) of the rotator cuff of left shoulder Presentation: 01/13 10:00 Presenting complaint: Patient states: She fell on December 30 and hurt her left aj1 shoulder, she had an X-Ray and CT and said nothing was broken, but the pain has not gone away and the pain radiates down her arm and into her hand. She is also having numbness in her hand. She went to urgent care and was advised to come to the ER. She has been taking Naproxen and Flexeril for the pain but has it has not helped with the pain. Transition of care: patient was not received from another setting of care. Onset of symptoms was December 30, 2017. Risk Assessment: Do you want to hurt yourself or someone else? Patient reports no desire to harm self or others. Initial Sepsis Screen: Does the patient meet any 2 criteria? No. Patient's initial sepsis screen is negative. Does the patient have a suspected source of infection? No. Patient's initial sepsis screen is negative. Care prior to arrival: None. 10:00 Method Of Arrival: Ambulatory aj1 10:00 Acuity: CHETAN 4 aj1 Triage Assessment: 10:04 General: Appears in no apparent distress. uncomfortable, Behavior is calm, cooperative, aj1 appropriate for age. Pain: Complains of pain in anterior aspect of left shoulder and posterior aspect of left shoulder Pain radiates to left arm Pain currently is 9 out of 10 on a pain scale. Neuro: Level of Consciousness is awake, alert, obeys commands. Cardiovascular: Patient's skin is warm and dry. Respiratory: Airway is patent Respiratory effort is even, unlabored, Respiratory pattern is regular, symmetrical. BUSINESS MGR: 10:04 LMP N/A - Hysterectomy aj1 Historical: - Allergies: 10:04 No Known Allergies; aj1 - Home Meds: 10:04 Flexeril Oral [Active]; Naproxen Oral [Active]; aj1 - PMHx: 10:04 cardiac stents; stents; in each leg; aj1 - PSHx: 10:04 bone fusion in left arm; skin grafts left arm; screws in left forearm; aj1 - Immunization history:: Flu vaccine is not up to date. - Social history:: Smoking status: Patient uses tobacco products, smokes one-half pack cigarettes per day. - Ebola Screening: : Patient denies travel to an Ebola-affected area in the 21 days before illness onset. Screenin:56 Abuse screen: Denies threats or abuse. Denies injuries from another. Nutritional ss screening: No deficits noted. Tuberculosis screening: Never had TB. Fall Risk None identified. Assessment: 10:56 General: Appears in no apparent distress. comfortable, Behavior is calm, cooperative, ss Denies fever, feeling ill, fatigue, chills. Pain: Complains of pain in posterior aspect of left shoulder and anterior aspect of left shoulder Pain currently is 9 out of 10 on a pain scale. Quality of pain is described as aching, tender, Pain began /2 Is continuous, Aggravated by increased ROM to L shoulder. Neuro: Level of Consciousness is awake, alert, obeys commands, Oriented to person, place, time, situation, Practice Business Asst are equal bilaterally Speech is normal. Neuro: Reports intermittent numbness to L hand since incident . Cardiovascular: Pulses are palpable in right radial artery and left radial artery. Respiratory: Airway is patent Respiratory effort is even, unlabored, Respiratory pattern is regular, symmetrical. GI: No signs and/or symptoms were reported involving the gastrointestinal system. EENT: Oral mucosa is moist. Throat is clear. Derm: Skin is pink, warm \T\ dry. Musculoskeletal: Range of motion: limited in left shoulder Swelling absent. 11:57 Reassessment: Patient appears in no apparent distress at this time. Patient and/or ss family updated on plan of care and expected duration. Pain level reassessed. Patient is alert, oriented x 3, equal unlabored respirations, skin warm/dry/pink. Patient states feeling better. Patient states symptoms have improved. Vital Signs: 10:04 BP 107 / 91; Pulse 101; Resp 20; Temp 98.9; Pulse Ox 99% on R/A; Weight 90.72 kg (R); aj1 Height 5 ft. 4 in. (162.56 cm) (R); Pain 9/10; 10:04 Body Mass Index 34.33 (90.72 kg, 162.56 cm) aj1 ED Course: 09:48 Patient arrived in ED. sb2 09:48 None, None is Private Physician. sb2 10:03 Triage completed. aj1 10:04 Arm band placed on Patient placed in an exam room. aj1 10:10 Rashid Solis NP is PHCP. pm1 10:10 Kurt Honeycutt MD is Attending Physician. pm1 10:56 Patient has correct armband on for positive identification. Bed in low position. Call ss light in reach. 11:00 Cony Salmon, RN is Primary Nurse. ss 11:47 Michael Grant MD is Referral Physician. pm1 11:57 No provider procedures requiring assistance completed. Patient did not have IV access ss during this emergency room visit. Administered Medications: 11:01 Drug: [place] 5 mg-325 mg 1 tabs Route: PO; ss 11:58 Follow up: Response: No adverse reaction; Pain is decreased ss 11:01 Drug: Decadron 10 mg Route: IM; Site: right gluteus; ss 11:59 Follow up: Response: No adverse reaction; Pain is decreased ss Outcome: 11:47 Discharge ordered by MD. pm1 11:57 Discharged to home ambulatory. ss 11:57 Condition: good 11:57 Discharge instructions given to patient, Instructed on discharge instructions, follow up and referral plans. medication usage, Demonstrated understanding of instructions, follow-up care, medications, Prescriptions given X 3. 11:59 Patient left the ED. ss Signatures: Bessie Driver RN RN aj1 Cony Salmon RN RN Rasihd Solis NP ACID MIXER pm1 Rylie Cheng sb2
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
== END 2018-01-13 11:59 | disposition home or self-care (01) ==
LOC: ER 09:47
DX: S46.012A Strain of muscle(s) and tendon(s) of the rotator cuff of left shoulder, initial encounter (principal); W19.XXXA Unspecified fall, initial encounter; F17.210 Nicotine dependence, cigarettes, uncomplicated
CPT/HCPCS: 96372; 99283

== ENCOUNTER 2018-02-02 22:33 | Emergency (ER) | payer SELFPAY ==
--- OUTSIDE RECORDS SUMMARY | 2018-02-02 22:36 | XMS REPORT ---
:1975 [facility] Address [address] [address] Care Team Providers Name Role Phone LOVE [...] Clinicians Facility Department ID 2017-10-25 2017-10-25 Emergency [facility] [id number] 23:30:27 23:30:27 2017-10-25 2017-10-25 Emergency [facility] [id number] 21:51:50 21:51:50 2016-07-14 2016-07-14 Emergency [facility] [id number] 14:16:54 14:16:54 2016-07-14 2016-07-14 Emergency [facility] [id number] 11:09:42 11:09:42 Results Test Description Test Time Test Comments Text Results Atomic Results Result Comments HEPATIC FUNCTION PANEL 2017-10-27 04:12:00 Test Item Value Reference Range Comments TOTAL PROTEIN (BEAKER) (test yqvs=550) 6.7 gm/dL 6.0-8.3 Specimen slightly hemolyzed ALBUMIN (BEAKER) (test vfwa=0260) 3.4 g/dL 3.5-5.0 Specimen slightly hemolyzed BILIRUBIN TOTAL (BEAKER) (test 0.3 mg/dL 0.2-1.2 Specimen slightly hemolyzed zcpi=334) BILIRUBIN DIRECT (BEAKER) (test 0.1 mg/dL 0.1-0.5 Specimen slightly hemolyzed saik=289) ALKALINE PHOSPHATASE (BEAKER) (test 126 U/L 40-150 inca=687) AST (SGOT) (BEAKER) (test rzet=828) 101 U/L 5-34 Specimen slightly hemolyzed ALT (SGPT) (BEAKER) (test ghpg=878) 142 U/L 6-55 Specimen slightly hemolyzed TROPONIN [id number] 20:53:00 Test Item Value Reference Range Comments TROPONIN I (BEAKER) (test fvjo=856) < ng/mL 0.00-0.03 Troponin I (TnI) levels [...] acidosis, acute neurological disease, and persistent tachyarrhythmia.CT, [id number] 16:46:00PO contrastFINAL REPORT INDICATION:42-year-old female with epigastric [...] MDReport Verified Date/Time: 10/26/2017 16:46:44 Reading Location: [facility] Diagnostic Imaging Reading Room - [place] [id number] HEPATITIS PANEL, [id number] 10:50:00 Test Item Value Reference Range Comments HEPATITIS A IGM ANTIBODY (BEAKER) (test Nonreactive Nonreactive osrf=135) HEPATITIS B CORE IGM ANTIBODY (BEAKER) (test Nonreactive Nonreactive jasi=480) HEPATITIS C ANTIBODY (BEAKER) (test wsxq=439) Reactive Nonreactive HEPATITIS B SURFACE ANTIGEN (2) (BEAKER) (test Nonreactive Nonreactive zlsu=9782) TROPONIN [id number] 08:46:00 Test Item Value Reference Range Comments TROPONIN I (BEAKER) (test dpbp=799) < ng/mL 0.00-0.03 Troponin I (TnI) levels [...] failure, acidosis, acute neurological disease, and persistent tachyarrhythmia.[id number] 08:38:00 Test Item Value Reference Range Comments MAGNESIUM (BEAKER) (test vqdz=174) 1.9 mg/dL 1.6-2.6 BASIC METABOLIC [id number] 08:38:00 Test Item Value Reference Range Comments SODIUM (BEAKER) (test 138 meq/L 136-145 emif=504) POTASSIUM (BEAKER) (test 3.5 meq/L 3.5-5.1 nwcb=218) CHLORIDE (BEAKER) (test 105 meq/L 98-107 xsno=525) CO2 (BEAKER) (test 25 meq/L 22-29 kkuv=725) BLOOD UREA NITROGEN 7 mg/dL 7-21 (BEAKER) (test sqtl=930) CREATININE (BEAKER) (test 0.76 mg/dL 0.57-1.25 anng=353) GLUCOSE RANDOM (BEAKER) 100 mg/dL 70-105 (test nwwe=690) CALCIUM (BEAKER) (test 9.1 mg/dL 8.4-10.2 dism=663) EGFR (BEAKER) (test 83 mL/min/1.73 sq m ESTIMATED GFR IS NOT tcxn=9177) ACCURATE CREATININE CLEARANCE IN PREDICTING GLOMERULAR FILTRATION RATE. ESTIMATED GFR IS NOT APPLICABLE FOR DIALYSIS PATIENTS. HEPATIC FUNCTION [id number] 08:38:00 Test Item Value Reference Range Comments TOTAL PROTEIN (BEAKER) (test glgb=267) 6.8 gm/dL 6.0-8.3 ALBUMIN (BEAKER) (test qmjz=7137) 3.7 g/dL 3.5-5.0 BILIRUBIN TOTAL (BEAKER) (test wszz=520) 0.3 mg/dL 0.2-1.2 BILIRUBIN DIRECT (BEAKER) (test zuqx=225) 0.2 mg/dL 0.1-0.5 ALKALINE PHOSPHATASE (BEAKER) (test atnz=095) 138 U/L 40-150 AST (SGOT) (BEAKER) (test wotq=451) 109 U/L 5-34 ALT (SGPT) (BEAKER) (test itvy=527) 154 U/L 6-55 [id number] 08:38:00 Test Item Value Reference Range Comments LIPASE (BEAKER) (test sdue=061) 73 U/L 8-78 CBC W/PLT COUNT & AUTO [id number] 08:20:00 Test Item Value Reference Range Comments WHITE BLOOD CELL COUNT (BEAKER) (test lgeh=064) 8.8 K/ L 3.5-10.5 RED BLOOD CELL COUNT (BEAKER) (test etdv=549) 4.33 M/ L 3.93-5.22 HEMOGLOBIN (BEAKER) (test yxil=623) 13.0 GM/DL 11.2-15.7 HEMATOCRIT (BEAKER) (test khyt=177) 39.9 % 34.1-44.9 MEAN CORPUSCULAR VOLUME (BEAKER) (test wyrw=034) 92.1 fL 79.4-94.8 MEAN CORPUSCULAR HEMOGLOBIN (BEAKER) (test 30.0 pg 25.6-32.2 qcis=468) MEAN CORPUSCULAR HEMOGLOBIN CONC (BEAKER) (test 32.6 GM/DL 32.2-35.5 ytuk=589) RED CELL DISTRIBUTION WIDTH (BEAKER) (test 15.8 % 11.7-14.4 ddhc=564) PLATELET COUNT (BEAKER) (test qlaw=456) 188 K/CU MM 150-450 MEAN PLATELET VOLUME (BEAKER) (test imlw=316) 10.8 fL 9.4-12.3 NUCLEATED RED BLOOD CELLS (BEAKER) (test 0 /100 WBC 0-0 wmym=433) NEUTROPHILS RELATIVE PERCENT (BEAKER) (test 48 % fzsd=316) LYMPHOCYTES RELATIVE PERCENT (BEAKER) (test 40 % wval=133) MONOCYTES RELATIVE PERCENT (BEAKER) (test 9 % extk=402) EOSINOPHILS RELATIVE PERCENT (BEAKER) (test 2 % nojo=864) BASOPHILS RELATIVE PERCENT (BEAKER) (test 0 % whqc=693) NEUTROPHILS ABSOLUTE COUNT (BEAKER) (test 4.22 K/ L 1.56-6.13 drcw=263) LYMPHOCYTES ABSOLUTE COUNT (BEAKER) (test 3.56 K/ L 1.18-3.74 glaw=792) MONOCYTES ABSOLUTE COUNT (BEAKER) (test 0.83 K/ L 0.24-0.36 fqpj=358) EOSINOPHILS ABSOLUTE COUNT (BEAKER) (test 0.16 K/ L 0.04-0.36 ryup=369) BASOPHILS ABSOLUTE COUNT (BEAKER) (test 0.03 K/ L 0.01-0.08 qfib=079) IMMATURE GRANULOCYTES-RELATIVE PERCENT (BEAKER) 0 % 0-1 (test kfcp=7387)
--- OUTSIDE RECORDS SUMMARY | 2018-02-02 22:36 | XMS REPORT | Clinical Summary ---
:1975 Author Organization [facility] Address [address] [place] [address] Care Team Providers Name Role Phone Pcp, [...] chronic pain 10/27/2017 Coronary artery disease involving [place] coronary artery of [place] heart 10/26 without angina pectoris Peripheral vascular disease 10/26/2017 Chronic hepatitis C without hepatic coma 10/26/2017 Epigastric pain 10/26/2017 Transaminitis 10/26/2017 Epigastric abdominal pain 10/26/2017 Encounters Date Type Specialty Care Team Description 10/26/2017 - Hospital Encounter General Internal Isela Linares Chronic hepatitis C without hepatic coma (HCC); 10/27/2017 Medicine Nusrat Mcclain, Coronary artery disease involving [place] coronary artery of [place] heart without angina pectoris; Epigastric abdominal pain; Bridgett, Peripheral vascular disease (HCC); Jaimie Transaminitis MD [address], Kaia Carnes MD after 02/01/2017 Social History Tobacco Use Types Packs/Day Years [...] Not on file Implants Implanted Type Area Team Assistant Device Shelf Model / Serial / Identifier Expiration Lot Date Dbx Melody,1cc Aseptic - [id number] Bone Left: MUSCULOSKELETAL [id number] / Implanted: Qty: 1 on 08/08/2013 by Mike Moore MD Spine TRANSPLANT [id number] / Cervical Screw,Zephir Self [employer] 4.0x13mm - [id number] Spine Left: [employer] SPINAL [id number] / Implanted: Qty: 1 on 08/08/2013 by Mike Moore MD [employer]ine [employer] BIOLOG[employer] / Cervical Screw,Zephir Selfdrill 3.5x13mm - [id number] Spine Left: [employer] SPINAL [id number] / Implanted: Qty: 4 on 08/08/2013 by Mike Moore MD [employer]ine [employer] BIOLOG[employer] / Cervical Spacer,[employer] Lateral Ports [id number] - [id number] Spine Left: [employer] SPINAL 12/18/2020 [id number] / Implanted: Qty: 1 on 08/08/2013 by Mike Moore MD Spine [employer] BIOLOG[employer] / Cervical [id number] Spacer,[employer] Lateral Ports [id number] - [id number] Spine Left: [employer] SPINAL 04/25/2021 [id number] / Implanted: Qty: 1 on 08/08/2013 by Mike Moore MD [employer]ine [employer] BIOLOG[employer] / Cervical [id number] Plate,Zephir Ti 42.5mm - [id number] Spine Left: [employer] SPINAL [id number] / Implanted: Qty: 1 on 08/08/2013 by [...] procedure are in the results section. after 02/01/2017 Results EKG-SCANNED (10/28/2017 9:00 AM CDT) Narrative Performed At RHYTHM STRIP - SCAN (10/28/2017 9:00 AM CDT) Narrative Performed At ECHOCARDIOGRAM REPORT - SCAN (10/27/2017 11:00 AM CDT) Narrative Performed At 2D Echo W/Doppler(CW/PW/Color) (10/27/2017 7:39 AM CDT) Ejection Fraction [facility] Narrative Performed At Transthoracic Echocardiography Report (TTE) [facility] Demographics Patient NameSMITH, JENNIFERDate of Study10/27/2017 MANPREET Gender Female Visit [id number] Race Unknown [id number] Number Date of 1975 Charlie Agustin MD Physician Age 42 year(s) SonographerDeyvi Zaragoza Network Relations Consultant Ankit Chang MD Physician Procedure Type of [...] Study 10/27/2017 MANPREET Gender Female Visit Number [id number] Race Unknown Room Number 725 Number Date of 1975 Referring Kaia Agustin MD Physician 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 Protein, Total 6.7Comment: Specimen 6.0 - 8.3 gm/dL [facility] hemolyzed [facility] Albumin 3.4 (L)Comment: Specimen 3.5 - 5.0 g/dL [facility] slightly hemolyzed [facility] Total Bilirubin 0.3Comment: Specimen 0.2 - 1.2 mg/dL [facility] Bilirubin, Direct 0.1Comment: Specimen 0.1 - 0.5 mg/dL [facility] hemolyzed [facility] Alkaline Phosphatase 126 40 - 150 U/L [facility] AST 101 (H)Comment: Specimen 5 - 34 U/L [facility] hemolyzed [facility] ALT 142 (H)Comment: Specimen 6 - 55 U/L [facility] hemolyzed [facility] Specimen Blood - Arm, Left Performing Organization Address City/[facility] Phone Number [address] [address] CENTER Troponin I (10/26/2017 8:14 PM CDT)Only the most recent of2 resultswithin the time period is included. Troponin I <0.01 0.00 - 0.03 ng/mL [facility] Specimen Blood - Arm, Left Narrative Performed At [facility] Troponin I (TnI) levels must be interpreted [...] disease, and persistent tachyarrhythmia. Performing Organization Address City/State/[facility] Phone Number [address] [address] [phone] [place] [address] abdomen/pelvis with IV contrast (10/26/2017 3:47 PM CDT) Narrative Performed At FINAL REPORT [facility] INDICATION: 42-year-old female with epigastric abdominal pain. [...] MD Report Verified Date/Time:10/26/2017 16:46:44 Reading Location: [facility] Diagnostic Imaging Reading Room - [place] [address] Procedure Note Interface, External Ris In - [...] Report Verified Date/Time: 10/26/2017 16:46:44 Reading Location: [facility] Diagnostic Imaging Reading Room - [place] [address] Performing Organization Address City/State/Zipcode Phone Number [facility] RIS CBC with platelet count + automated diff (10/26/2017 8:09 AM CDT) WBC 8.8 3.5 - 10.5 K/L [facility] RBC 4.33 3.93 - 5.22 M/L [facility] Hemoglobin 13.0 11.2 - 15.7 GM/DL [facility] Hematocrit 39.9 34.1 - 44.9 % [facility] MCV 92.1 79.4 - 94.8 fL [facility] MCH 30.0 25.6 - 32.2 pg [facility] MCHC 32.6 32.2 - 35.5 GM/DL [facility] RDW 15.8 (H) 11.7 - 14.4 % [facility] Platelets 188 150 - 450 K/CU MM [facility] MPV 10.8 9.4 - 12.3 fL [facility] nRBC 0 0 - 0 /100 WBC [facility] % Neutros 48 % [facility] % Lymphs 40 % [facility] % Monos 9 % [facility] % Eos 2 % [facility] % Baso 0 % [facility] # Neutros 4.22 1.56 - 6.13 K/L [facility] # Lymphs 3.56 1.18 - 3.74 K/L [facility] # Monos 0.83 (H) 0.24 - 0.36 K/L [facility] # Eos 0.16 0.04 - 0.36 K/L [facility] # Baso 0.03 0.01 - 0.08 K/L [facility] Immature Granulocytes-Relative 0 0 - 1 % [facility] Specimen Blood - Arm, Right Performing Organization Address City/[facility] Phone Number [address] [address] [place] Hepatitis panel, acute (10/26/2017 8:09 AM CDT) Hep A IgM HEPATITIS A TEST NEGATIVE Nonreactive [facility] Hep B C IgM NON-REACTIVE Nonreactive [facility] Hepatitis C Ab Reactive (A) Nonreactive [facility] hepatitis B Surface Ag NON-REACTIVE Nonreactive [facility] Specimen Blood - Arm, Right Performing Organization Address [facility]/Zipcode Phone Number [address] [address] [phone] CENTER Magnesium (10/26/2017 8:09 AM CDT) Magnesium 1.9 1.6 - 2.6 mg/dL [facility] Specimen Blood - Arm, Right Performing Organization Address [facility] Phone Number [address] [address] CENTER Lipase (10/26/2017 8:09 AM CDT) Lipase 73 8 - 78 U/L [facility] Specimen Blood - Arm, Right Performing Organization Address [facility] Phone Number [address] [address] [place] Basic metabolic panel (10/26/2017 8:09 AM CDT) Sodium 138 136 - 145 meq/L [facility] Potassium 3.5 3.5 - 5.1 meq/L [facility] Chloride 105 98 - 107 meq/L [facility] CO2 25 22 - 29 meq/L [facility] BUN 7 7 - 21 mg/dL [facility] Creatinine 0.76 0.57 - 1.25 mg/dL [facility] Glucose 100 70 - 105 mg/dL [facility] Calcium 9.1 8.4 - 10.2 mg/dL [facility] EGFR 83Comment: ESTIMATED GFR IS mL/min/1.73 sq m [facility] NOT ACCURATE CREATININE [facility] CLEARANCE IN PREDICTING GLOMERULAR FILTRATION RATE. ESTIMATED GFR IS NOT APPLICABLE FOR DIALYSIS PATIENTS. Specimen Blood - Arm, Right Performing Organization Address [facility] Phone Number [address] [address] [place] ECG 12 lead (10/26/2017 6:55 AM CDT) Narrative Performed At Ventricular Rate 64 BPM [facility] Atrial Rate 64 BPM P-R Interval 148 ms QRS Duration 90 ms Q-T Interval 412 ms QTC Calculation(Bazett) 425 ms P [place] 56 degrees R [place] 60 degrees T [place] 80 degrees Normal sinus rhythm Normal ECG [...] 412 ms QTC Calculation(Bazett) 425 ms P [place] 56 degrees R [place] 60 degrees T [place] 80 degrees Normal sinus rhythm Normal ECG When compared with ECG of 08-NOV-2008 12:22, Q waves are no longer seen inferior leads Nonspecific T wave abnormality now evident in aVL Confirmed by MD JUAN PABLO, YOHANNES ([id number]) on 10/26/2017 7:52:47 AM Performing Organization Address City/State/Zipcode Phone Number [facility] M[facility] after 02/01/2017 Advance Directives For more information, please contact:[address] [phone] Code Status Date Activated Date Inactivated Comments Full Code 10/26/2017 5:41 AM 10/27/2017 2:54 PM This code status was determined by: Patient Code ONE 08/08/2013 6:59 AM 08/09/2013 1:32 PM All possible means of support including;cardiac massage, mechanical ventilation, and defibrillation will be used to support life.
--- OUTSIDE RECORDS SUMMARY | 2018-02-02 22:36 | XMS REPORT | Clinical Summary ---
:1975 Author Organization [facility] Address [address] [place] [address] Care Team Providers Name Role Phone Unavailable Primary Care Provider Unavailable Allergies No Known Allergies Medications Medication Sig Dispensed Refills Start Date End Date Status acetaminophen-codeine Take 1 tablet by 30 tablet 0 07/14/2016 Active (TYLENOL/CODEINE #3) mouth every 4 300-30 mg per hours as needed tabletIndications: for Pain. Pain of left upper extremity ibuprofen (MOTRIN) 800 [...] vomiting with nausea, unspecified vomiting type after 02/01/2017 Social History Tobacco Use Types [...] in the results section. after 02/01/2017 Results TROPONIN I POC (10/26/2017 1:54 AM CDT)Only the most recent of2 resultswithin the time period is included. 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 Otherwise, no acute cardiopulmonary disease. Signed By: Kenrick French MD, 10/26/2017 12:50 AM Narrative Performed At [facility] EXAM: XR CHEST 1 VIEW DATE:10/26/2017 12:04 [...] MD, 10/26/2017 12:50 AM Performing Organization Address [facility] Phone Number [facility] BMP POC (10/25/2017 11:22 PM CDT) CO2 POC 29Comment: 21 - 32 [facility] Physician mmol/L 1 Notified Chloride POC 102 98 - 107 [facility] mmol/L 1 Potassium POC 3.5 3.50 - 5.10 [facility] mmol/L 1 Sodium POC 142 136 - 145 [facility] mmol/L 1 Glucose POC 79 74 - 106 [facility] mg/dL 1 Urea Nitrogen POC 4 (L) 7 - 18 mg/dL [facility] 1 Creatinine POC 0.7 0.6 - 1.3 [facility] mg/dL 1 Calcium Ionized POC 1.18 1.15 - 1.29 [facility] mmol/L 1 Hemoglobin POC 15.3 12.0 - 16.0 [facility] g/dL 1 Hematocrit POC 45.0 37.0 - 47.0 % [facility] 1 GFR, Estimated >60 mL/min/1.73 [facility] m2 1 GFR, Estim, Afr-Am >60 mL/min/1.73 [facility] m2 1 Performing Organization Address [facility] Phone Number [facility] 1 PT/INR/PTT (10/25/2017 10:58 PM CDT) PT 11.8 11.8 - 15.0 [facility] Seconds 2 INR 0.9 [facility] 2 SUGGESTED THERAPEUTIC RANGES: INR 2.0-3.0 for MODERATE INTENSITY ANTICOAGULATION INR 2.5-3.5 for HIGH INTENSITY ANTICOAGULATION PTT 29.3 23.6 - 36.4 [facility] Seconds 2 Specimen Blood Performing Organization Address [facility] Phone Number [facility] 2 LIVER PROFILE (10/25/2017 10:58 PM CDT) T Protein 7.7 6.4 - 8.2 g/dL [facility] 2 Albumin 3.5 3.4 - 5.0 g/dL [facility] 2 T Bilirubin 0.4 0.2 - 1.0 mg/dL [facility] 2 Alk Phos 163 (H) 45 - 117 U/L [facility] 2 AST 151 (H) 15 - 37 U/L [facility] 2 ALT 201 (H) 12 - 78 U/L [facility] 2 D Bilirubin 0.1 0.0 - 0.2 mg/dL [facility] 2 Specimen Blood Performing Organization Address [facility] Phone Number [facility] 2 LIPASE (10/25/2017 10:58 PM CDT) Lipase 334 73 - 393 U/L [facility] Specimen Blood Performing Organization Address City/State/Zipcode Phone Number MISYS [facility] 2 CBC/DIFF (10/25/2017 10:58 PM CDT) WBC 11.5 (H) 4.5 - 11.0 K/uL [facility] 2 RBC 4.74 4.20 - 5.40 [facility] 2 M/uL Hemoglobin 14.3 12.0 - 16.0 [facility] 2 g/dL Hematocrit 43.3 37.0 - 47.0 % [facility] 2 MCV 91 82 - 92 fL [facility] 2 MCH 30.2 27.0 - 32.0 pg [facility] 2 MCHC 33.0 32.0 - 36.0 [facility] 2 g/dL RDW 52.3 (H) 36.4 - 46.3 fL [facility] 2 Platelet 211 150 - 400 K/uL [facility] 2 Mean Platelet Volume 11.6 9.4 - 12.4 fL [facility] 2 Percent NRBC 0.0 [facility] 2 Absolute NRBC 0.00 [facility] 2 Neutrophil 63.9 34.0 - 70.0 % [facility] 2 Lymphocyte 25.6 20.0 - 50.0 % [facility] 2 Monocyte 8.9 5.0 - 12.0 % [facility] 2 Eosinophil 1.0 0.7 - 5.0 % [facility] 2 Basophil 0.3 0.1 - 1.2 % [facility] 2 Pct Immat Gran 0.3 0.0 - 0.5 [facility] 2 Neutrophil, Abs 7.36 (H) 1.56 - 6.13 [facility] 2 K/uL Lymphocyte, Abs 2.95 1.18 - 3.74 [facility] 2 K/uL Monocyte, Abs 1.03 (H) 0.24 - 0.36 [facility] 2 K/uL Eosinophil, Abs 0.12 0.04 - 0.36 [facility] 2 K/uL Basophil, Abs 0.03 0.01 - 0.08 [facility] 2 K/uL Absol Immat Gran 0.03 0.00 - 0.03 [facility] 2 K/uL Specimen Blood Performing Organization Address [facility] Phone Number [facility] 2 12 LEAD EKG (10/25/2017 9:49 PM CDT) 12 LEAD EKG FOR [facility] SMS Test Date:2017-10-25 Pat Name: DG SALDAÑA Department: : Gender: F 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: [id number] :1975 Requested By: Order Number:Reading MD: Minh Pratt Measurements IntervalsAxis Rate: 106P: 61 AR: 159QRS: 60 QRSD: 93 T: 66 QT: 312 QTc:415 Interpretive Statements SINUS TACHYCARDIA MODERATE ST DEPRESSION NON SPECIFIC T WAVE ABNORMALITY Electronically Signed On 10-26-17 17:41:13 CDT by Minh Pratt Performing Organization Address [facility] Phone Number SMS after 02/01/2017 Insurance Payer Benefit Plan / Subscriber ID Effective Dates Phone Address Type Group [employer] PLAN [employer] PLAN 1 xxxxxxxxx 2017-[phone] [address] (Home) [place] [address]
--- NOTE | 2018-02-02 23:29 | ER ---
Nurse's Notes [facility] Name: Alysa Saldaña Age: 43 yrs Sex: Female : 1975 Arrival Date: 02/02/2018 Time: 22:36 Bed 26 Private MD: Diagnosis: Presentation: 02/02 22:49 Presenting complaint: Patient states: starting having chest pain thirty minutes ago, rv with nausea. pain also in the neck. had 6 bottles of beer. Transition of care: patient was not received from another setting of care. Onset of symptoms was February 02, 2018 at 22:15. Risk Assessment: Do you want to hurt yourself or someone else? Patient reports no desire to harm self or others. Initial Sepsis Screen: Does the patient meet any 2 criteria? No. Patient's initial sepsis screen is negative. Does the patient have a suspected source of infection? No. Patient's initial sepsis screen is negative. Care prior to arrival: None. 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 - Social history:: Smoking status: Patient uses tobacco products, smokes one-half pack cigarettes per day, Patient uses alcohol, occasionally. - Ebola Screening: : Patient negative for fever greater than or equal to 101.5 degrees Fahrenheit, and additional compatible Ebola Virus Disease symptoms Patient denies exposure to infectious person Patient denies travel to an Ebola-affected area in the 21 days before illness onset. Screenin:54 Abuse screen: Denies threats or abuse. Denies injuries from another. Nutritional rv screening: No deficits noted. Tuberculosis screening: No symptoms or risk factors identified. Fall Risk None identified. Assessment: 22:53 General: Appears in no apparent distress. uncomfortable, Behavior is calm, cooperative. rv General: Smells of alcohol. Pain: Complains of pain in chest Pain radiates to neck Pain began 30 min ago. Neuro: Level of Consciousness is awake, alert, obeys commands, Oriented to person, place, time, situation. Cardiovascular: Capillary refill < 3 seconds. Respiratory: Airway is patent. GI: No signs and/or symptoms were reported involving the gastrointestinal system. : No signs and/or symptoms were reported regarding the genitourinary system. EENT: No signs and/or symptoms were reported regarding the EENT system. Derm: Skin is intact. Musculoskeletal: No signs and/or symptoms reported regarding the musculoskeletal system. Vital Signs: 22:52 BP 97 / 63; Pulse 94; Resp 16; Temp 98.2; Pulse Ox 95% on R/A; Weight 88.45 kg; rv ED Course: 22:36 Patient arrived in ED. analisa 22:46 Imtiaz Resendiz PA [facility] trevor 22:46 Humble Kim MD is Attending Physician. cp 22:50 Triage completed. rv 22:54 Patient has correct armband on for positive identification. Bed in low position. Call rv light in reach. Side rails up X 1. Adult w/ patient. abstractor on. Pulse ox on. NIBP on. 22:54 Patient placed in an exam room, on a stretcher, on women's swim coach, on pulse oximetry, rv Patient notified of wait time Emesis basin given. EKG completed in triage. Results shown to MD. 22:54 Patient maintains SpO2 saturation greater than 95% on room air. rv 23:02 Warm blanket given. Pillow given. jp3 23:02 EKG done, by ED staff, reviewed by Imtiaz BAER. jp3 23:28 No provider procedures requiring assistance completed. Patient did not have IV access rv during this emergency room visit. Administered Medications: No medications were administered Outcome: 23:28 AMA AMA form signed rv 23:28 Condition: unchanged 23:28 Instructed on AMA 23:29 Patient left the ED. rv Signatures: Danya Ozuna Corey, PA PA cp Vicente, Ronaldo, RN RN rv Rush Jennings jp3
--- NOTE | 2018-02-02 23:30 | EDPHYS ---
Physician Documentation [facility] Name: Alysa Saldaña Age: 43 yrs Sex: Female : 1975 Arrival Date: 02/02/2018 Time: 22:36 Bed 26 Private MD: ED Physician Humble Kim HPI: 02/02 23:23 This 43 yrs old Female presents to ER via Ambulatory with complaints of Chest cp Pain. 23:23 The patient or guardian reports chest pain that is located primarily in the anterior cp chest wall. 23:23 Onset: 30 minute(s) ago. 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 - Social history:: Smoking status: Patient uses tobacco products, smokes one-half pack cigarettes per day, Patient uses alcohol, occasionally. - Ebola Screening: : Patient negative for fever greater than or equal to 101.5 degrees Fahrenheit, and additional compatible Ebola Virus Disease symptoms Patient denies exposure to infectious person Patient denies travel to an Ebola-affected area in the 21 days before illness onset. ROS: 23:25 Constitutional: Negative for fever, poor PO intake. cp 23:25 Cardiovascular: Positive for chest pain. cp Exam: 23:24 ECG was reviewed by the Attending Physician. cp 23:27 Constitutional: The patient appears in no acute distress, alert, awake, cp non-diaphoretic, well developed, well nourished, uncomfortable. 23:27 Head/Face: Normocephalic, atraumatic. cp Vital Signs: 22:52 BP 97 / 63; Pulse 94; Resp 16; Temp 98.2; Pulse Ox 95% on R/A; Weight 88.45 kg; rv MDM: 22:49 Patient medically screened. cp 02/02 23:11 Order name: EKG; Complete Time: 23:11 cp 02/02 23:11 Order name: EKG - Nurse/Tech; Complete Time: 23:15 cp EC:24 Rate is 86 beats/min. Rhythm is regular. WI interval is normal. QRS interval is normal. cp QT interval is normal. T waves are Inverted in lead aVL. Interpreted by me. Reviewed by me. Administered Medications: No medications were administered Disposition: 02/02/18 23:29 Patient has left against medical advice. - Patients states they are going to Home. - Condition is Stable. Addendum: 02/06/2018 10:29 Co-signature as Attending Physician, Humble Kim MD. g s Signatures: Imtiaz Resendiz PA PA cp Humble Kim MD MD gs Vicente, Ronaldo RN RN rv
--- NOTE | 2018-02-03 08:29 | EKG ---
Test Date: 2018-02-02 Test Time: 22:50:39 Billet Sawyer: TAURUS MEASUREMENT RESULTS: Intervals: Rate: 86 ID: [id number] QRSD: 90 QT: 370 QTc: 442 [place]: P: 73 ID: [id number] QRS: 57 T: 92 INTERPRETIVE STATEMENTS: Normal sinus rhythm Normal ECG Compared to ECG 12/30/2017 17:06:15 No significant changes Electronically Signed On 02-03-18 08:28:22 ASSISTANT PROFESSOR OF SPANISH by Jong Beltran
== END 2018-02-02 23:29 | disposition left against medical advice (07) ==
LOC: ER 22:33
DX: R07.9 Chest pain, unspecified (principal); F17.210 Nicotine dependence, cigarettes, uncomplicated; Z95.818 Presence of other cardiac implants and grafts
CPT/HCPCS: 93005; 99284

== ENCOUNTER 2018-03-05 07:14 | Emergency (ER) | payer SELFPAY ==
--- OUTSIDE RECORDS SUMMARY | 2018-03-05 07:17 | XMS REPORT | Clinical Summary ---
:1975 Author Organization [facility] Address [address] [place] [address] Care Team Providers Name Role Phone Pcp, [...] chronic pain 10/27/2017 Coronary artery disease involving [place] coronary artery of [place] and [place] heart 10/26 without angina pectoris Peripheral vascular disease 10/26/2017 Chronic hepatitis C without hepatic coma 10/26/2017 Epigastric pain 10/26/2017 Transaminitis 10/26/2017 Epigastric abdominal pain 10/26/2017 Encounters Date Type Specialty Care Team Description 10/26/2017 - Hospital Encounter General Internal MilagrosIsela lynn Chronic hepatitis C without hepatic coma (HCC); 10/27/2017 Medicine Nusrat Mcclain, Coronary artery disease involving [place] and [place] tribes coronary artery of [place] and [place] heart without angina pectoris; Epigastric abdominal pain; Bridgett, Peripheral vascular disease (HCC); Jaimie Transaminitis MD [address], Kaia Carnes MD after 03/04/2017 Social History Tobacco Use Types Packs/Day Years [...] Not on file Implants Implanted Type Area Health Economist Device Shelf Model / Serial / Identifier Expiration Lot Date Dbx Melody,1cc Aseptic - [id number] Bone Left: MUSCULOSKELETAL [id number] / Implanted: Qty: 1 on 08/08/2013 by Mike Moore MD Spine TRANSPLANT [id number] / Cervical Screw,Zephir Self Drilling 4.0x13mm - [id number] Spine Left: [employer] SPINAL [id number] / Implanted: Qty: 1 on 08/08/2013 by Mike Moore MD Spine AND BIOLOGICS / Cervical Screw,Zephir Selfdrill 3.5x13mm - [id number] Spine Left: [employer] SPINAL [id number] / Implanted: Qty: 4 on 08/08/2013 by Mike Moore MD Spine AND BIOLOGICS / Cervical Spacer,[employer]ner[employer] Lateral Ports [id number] - [id number] Spine Left: [employer] SPINAL 12/18/2020 [id number] / Implanted: Qty: 1 on 08/08/2013 by Mike Moore MD Spine AND BIOLOGICS / Cervical [id number] Spacer,[employer] Lateral Ports [id number] - [id number] Spine Left: [employer] SPINAL 04/25/2021 [id number] / Implanted: Qty: 1 on 08/08/2013 by Mike Moore MD Spine AND BIOLOGICS / Cervical [id number] Plate,Zephir Ti 42.5mm - [id number] Spine Left: [employer] SPINAL [id number] / Implanted: Qty: 1 on 08/08/2013 by [...] procedure are in the results section. after 03/04/2017 Results EKG-SCANNED (10/28/2017 9:00 AM CDT) Narrative Performed At RHYTHM STRIP - SCAN (10/28/2017 9:00 AM CDT) Narrative Performed At ECHOCARDIOGRAM REPORT - SCAN (10/27/2017 11:00 AM CDT) Narrative Performed At 2D Echo W/Doppler(CW/PW/Color) (10/27/2017 7:39 AM CDT) Ejection Fraction [facility] Narrative Performed At Transthoracic Echocardiography Report (TTE) [facility] Demographics Patient NameSMITH, JENNIFERDate of Study10/27/2017 MANPREET Gender Female Visit [id number] Race Unknown [id number] Number Date of 1975 Charlie Agustin MD Physician Age 42 year(s) SonographerDeyvi Zaragoza Signal Tower Director Ankit Chang MD Physician Procedure Type of [...] Study 10/27/2017 MANPREET Gender Female Visit Number [id number] Race Unknown Room Number 725 Number Date of 1975 Referring Kaia Agustin MD Physician Age 42 year(s) Board Filler Deyvi Zaragoza Signal Tower Director Ankit Robb Interpreting Franki Chang MD Physician [...] City/State/Zipcode Phone Number [facility] Hepatic function panel (10/27/2017 3:33 AM CDT)Only the most recent of2 resultswithin the time period is included. Protein, Total 6.7Comment: Specimen 6.0 - 8.3 gm/dL [facility] hemolyzed [facility] Albumin 3.4 (L)Comment: Specimen 3.5 - 5.0 g/dL [facility] slightly hemolyzed [facility] Total Bilirubin 0.3Comment: Specimen 0.2 - 1.2 mg/dL [facility] Bilirubin, Direct 0.1Comment: Specimen 0.1 - 0.5 mg/dL [facility] hemolyzed [facility] Alkaline Phosphatase 126 40 - 150 U/L [facility] AST 101 (H)Comment: Specimen 5 - 34 U/L [facility] hemolyzed [facility] ALT 142 (H)Comment: Specimen 6 - 55 U/L [facility] hemolyzed [facility] Specimen Blood - Arm, Left Performing Organization Address City/[facility] Phone Number [address] [address] CENTER Troponin I (10/26/2017 8:14 PM CDT)Only the most recent of2 resultswithin the time period is included. Troponin I <0.01 0.00 - 0.03 ng/mL [facility] Specimen Blood - Arm, Left Narrative Performed At [facility] Troponin I (TnI) levels must [...] disease, and persistent tachyarrhythmia. Performing Organization Address City/State/[facility] Cent[facility]ode Phone Number [address] [address] [phone] abdomen/pelvis with IV contrast (10/26/2017 3:47 PM CDT) Narrative Performed At FINAL REPORT [facility] INDICATION: 42-year-old female with epigastric abdominal pain. [...] MD Report Verified Date/Time:10/26/2017 16:46:44 Reading Location: [facility] Diagnostic Imaging Reading Room - [place] [address] Procedure Note Interface, External Ris In - [...] Report Verified Date/Time: 10/26/2017 16:46:44 Reading Location: [facility] Diagnostic Imaging Reading Room - [place] [address] Performing Organization Address City/State/Zipcode Phone Number GE RIS CBC with platelet count + automated diff (10/26/2017 8:09 AM CDT) WBC 8.8 3.5 - 10.5 K/L [facility] RBC 4.33 3.93 - 5.22 M/L [facility] Hemoglobin 13.0 11.2 - 15.7 GM/DL [facility] Hematocrit 39.9 34.1 - 44.9 % [facility] MCV 92.1 79.4 - 94.8 fL [facility] MCH 30.0 25.6 - 32.2 pg [facility] MCHC 32.6 32.2 - 35.5 GM/DL [facility] RDW 15.8 (H) 11.7 - 14.4 % [facility] Platelets 188 150 - 450 K/CU MM [facility] MPV 10.8 9.4 - 12.3 fL [facility] nRBC 0 0 - 0 /100 WBC [facility] % Neutros 48 % [facility] % Lymphs 40 % [facility] % Monos 9 % [facility] % Eos 2 % [facility] % Baso 0 % [facility] # Neutros 4.22 1.56 - 6.13 K/L [facility] # Lymphs 3.56 1.18 - 3.74 K/L [facility] # Monos 0.83 (H) 0.24 - 0.36 K/L [facility] # Eos 0.16 0.04 - 0.36 K/L [facility] # Baso 0.03 0.01 - 0.08 K/L [facility] Immature Granulocytes-Relative 0 0 - 1 % [facility] Specimen Blood - Arm, Right Performing Organization Address City/[facility] Centercode Phone Number [address] [address] [phone] [place] Hepatitis panel, acute (10/26/2017 8:09 AM CDT) Hep A IgM HEPATITIS A TEST NEGATIVE Nonreactive [facility] Hep B C IgM NON-REACTIVE Nonreactive [facility] Hepatitis C Ab Reactive (A) Nonreactive [facility] hepatitis B Surface Ag NON-REACTIVE Nonreactive [facility] Specimen Blood - Arm, Right Performing Organization Address [facility]/Zipcode Phone Number [address] [address] [phone] CENTER Magnesium (10/26/2017 8:09 AM CDT) Magnesium 1.9 1.6 - 2.6 mg/dL [facility] Specimen Blood - Arm, Right Performing Organization Address [facility] Centercovt Phone Number [address] [address] CENTER Lipase (10/26/2017 8:09 AM CDT) Lipase 73 8 - 78 U/L [facility] Specimen Blood - Arm, Right Performing Organization Address [facility] Phone Number [address] [address] [place] Basic metabolic panel (10/26/2017 8:09 AM CDT) Sodium 138 136 - 145 meq/L [facility] Potassium 3.5 3.5 - 5.1 meq/L [facility] Chloride 105 98 - 107 meq/L [facility] CO2 25 22 - 29 meq/L [facility] BUN 7 7 - 21 mg/dL [facility] Creatinine 0.76 0.57 - 1.25 mg/dL [facility] Glucose 100 70 - 105 mg/dL [facility] Calcium 9.1 8.4 - 10.2 mg/dL [facility] EGFR 83Comment: ESTIMATED GFR IS mL/min/1.73 sq m [facility] NOT ACCURATE CREATININE [facility] CLEARANCE IN PREDICTING GLOMERULAR FILTRATION RATE. ESTIMATED GFR IS NOT APPLICABLE FOR DIALYSIS PATIENTS. Specimen Blood - Arm, Right Performing Organization Address [facility] Phone Number [address] [address] [place] ECG 12 lead (10/26/2017 6:55 AM CDT) Narrative Performed At Ventricular Rate 64 BPM GE MUSE Atrial Rate 64 BPM P-R Interval 148 ms QRS Duration 90 ms Q-T Interval 412 ms QTC Calculation(Bazett) 425 ms P [place] 56 degrees R [place] 60 degrees T [place] 80 degrees Normal sinus rhythm Normal ECG [...] 412 ms QTC Calculation(Bazett) 425 ms P [place] 56 degrees R [place] 60 degrees T [place] 80 degrees Normal sinus rhythm Normal ECG When compared with ECG of 08-NOV-2008 12:22, Q waves are no longer seen inferior leads Nonspecific T wave abnormality now evident in aVL Confirmed by MD JUAN PABLO, YOHANNES ([id number]) on 10/26/2017 7:52:47 AM Performing Organization Address City/State/Zipcode Phone Number GE MUSE after 03/04/2017 Advance Directives For more information, please contact:[address] [phone] Code Status Date Activated Date Inactivated Comments Full Code 10/26/2017 5:41 AM 10/27/2017 2:54 PM This code status was determined by: Patient Code ONE 08/08/2013 6:59 AM 08/09/2013 1:32 PM All possible means of support including;cardiac massage, mechanical ventilation, and defibrillation will be used to support life.
--- OUTSIDE RECORDS SUMMARY | 2018-03-05 07:17 | XMS REPORT | Clinical Summary ---
:1975 Author Organization [facility] Address [address] [place] [address] Care Team Providers Name Role Phone Unavailable [...] vomiting with nausea, unspecified vomiting type after 03/04/2017 Social History Tobacco Use Types [...] in the results section. after 03/04/2017 Results TROPONIN I POC (10/26/2017 1:54 AM CDT)Only the most recent of2 resultswithin the time period is included. 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 Phone Number [facility] XRAY CHEST 1 VIEW (10/25/2017 11:58 PM CDT) Impressions Performed At IMPRESSION: [facility] Subacute left posterior third through sixth rib fractures. Otherwise, no acute cardiopulmonary disease. Signed By: Kenrick French MD, 10/26/2017 12:50 AM Narrative Performed At [facility] EXAM: XR CHEST 1 VIEW DATE:10/26/2017 [...] MD, 10/26/2017 12:50 AM Performing Organization Address [facility] Phone Number [facility] BMP POC (10/25/2017 11:22 PM CDT) CO2 [...] 1 Creatinine POC 0.7 0.6 - 1.3 [facility] MAIN-STATION mg/dL 1 Calcium Ionized POC 1.18 1.15 - 1.29 [facility] mmol/L 1 Hemoglobin POC 15.3 12.0 - 16.0 [facility] g/dL 1 Hematocrit POC 45.0 37.0 - 47.0 % [facility] MAIN-STATION 1 GFR, Estimated >60 mL/min/1.73 [facility]IN-STATION m2 1 GFR, Estim, Afr-Am >60 mL/min/1.73 [facility]IN-STATION m2 [address] [facility] Phone Number MISYS [facility] MAIN-STATION 1 PT/INR/PTT (10/25/2017 10:58 PM CDT) PT 11.8 11.8 - 15.0 [facility] Seconds 2 INR 0.9 [facility] MAIN-[facility]ATION 2 SUGGESTED THERAPEUTIC RANGES: INR 2.0-3.0 for MODERATE INTENSITY ANTICOAGULATION INR 2.5-3.5 for HIGH INTENSITY ANTICOAGULATION PTT 29.3 23.6 - 36.4 [facility] Seconds 2 Specimen Blood Performing Organization Address [facility] Phone Number MISYS [facility] MAIN-STATION 2 LIVER PROFILE (10/25/2017 10:58 PM CDT) T Protein 7.7 6.4 - 8.2 g/dL [facility] MAIN-STATION 2 Albumin 3.5 3.4 - 5.0 g/dL [facility] MAIN-STATION 2 T Bilirubin 0.4 0.2 - 1.0 mg/dL [facility]-STATION 2 Alk Phos 163 (H) 45 - 117 U/L [facility] MAIN-STATION 2 AST 151 (H) 15 - 37 U/L [facility] MAIN-STATION 2 ALT 201 (H) 12 - 78 U/L [facility] MAIN-STATION 2 D Bilirubin 0.1 0.0 - 0.2 mg/dL [facility] MAINSTATION 2 Specimen Blood Performing Organization Address [facility] Phone Number MISYS [facility] MAIN-STATION 2 LIPASE (10/25/2017 10:58 PM CDT) Lipase 334 73 - 393 U/L [facility] Specimen Blood Performing Organization Address City/State/Zipcode Phone Number MISYS [facility] MAIN-STATION 2 CBC/DIFF (10/25/2017 10:58 PM CDT) WBC 11.5 (H) 4.5 - 11.0 K/uL [facility] MAIN-STATION 2 RBC 4.74 4.20 - 5.40 [facility] MAIN-STATION 2 M/uL Hemoglobin 14.3 12.0 - 16.0 [facility] MAIN-STATION 2 g/dL Hematocrit 43.3 37.0 - 47.0 % [facility] MAIN-STATION 2 MCV 91 82 - 92 fL [facility] MAIN-STATION 2 MCH 30.2 27.0 - 32.0 pg [facility]IN-STATION 2 MCHC 33.0 32.0 - 36.0 [facility]IN-ST[facility] 2 g/dL RDW 52.3 (H) 36.4 - 46.3 fL [facility] MAIN-STATION 2 Platelet 211 150 - 400 K/uL [facility] MAIN-STATION 2 Mean Platelet Volume 11.6 9.4 - 12.4 fL [facility] MAIN-STATION 2 Percent NRBC 0.0 [facility] MAIN-STATION 2 Absolute NRBC 0.00 LB [...] 2 K/uL Specimen Blood Performing Organization Address City[facility] Phone Number MISYS [facility]IN-STATION 2 12 LEAD EKG (10/25/2017 9:49 PM CDT) 12 LEAD EKG FOR [facility] SMS Test Date:2017-10-25 Pat Name: DG SALDAÑA Department: : 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 Phone Number SMS after 03/04/2017 Insurance Payer Benefit Plan / Subscriber ID Effective Dates Phone Address Type Group [employer]CHD PLAN HCHD PLAN 1 xxxxxxxxx 2017-[phone] [address] (Home) [place] [address]
--- OUTSIDE RECORDS SUMMARY | 2018-03-05 07:17 | XMS REPORT ---
:1975 Author Organization [facility] Address [address] [place] [address] Care Team Providers Name Role Phone LOVE [...] Clinicians Facility Department ID 2017-10-25 2017-10-25 Emergency [facility] [id number] 23:30:27 23:30:27 2017-10-25 2017-10-25 Emergency [facility] [id number] 21:51:50 21:51:50 2016-07-14 2016-07-14 Emergency [facility] [id number] 14:16:54 14:16:54 2016-07-14 2016-07-14 Emergency [facility] [id number] 11:09:42 11:09:42 Results Test Description Test Time Test Comments Text Results Atomic Results Result Comments HEPATIC FUNCTION PANEL 2017-10-27 04:12:00 Test Item Value Reference Range Comments TOTAL PROTEIN (BEAKER) (test fvdq=702) 6.7 gm/dL 6.0-8.3 Specimen slightly hemolyzed ALBUMIN (BEAKER) (test fney=0695) 3.4 g/dL 3.5-5.0 Specimen slightly hemolyzed BILIRUBIN TOTAL (BEAKER) (test 0.3 mg/dL 0.2-1.2 Specimen slightly hemolyzed fcuh=860) BILIRUBIN DIRECT (BEAKER) (test 0.1 mg/dL 0.1-0.5 Specimen slightly hemolyzed efdi=675) ALKALINE PHOSPHATASE (BEAKER) (test 126 U/L 40-150 nfjg=469) AST (SGOT) (BEAKER) (test kmys=637) 101 U/L 5-34 Specimen slightly hemolyzed ALT (SGPT) (BEAKER) (test ajkh=488) 142 U/L 6-55 Specimen slightly hemolyzed TROPONIN [id number] 20:53:00 Test Item Value Reference Range Comments TROPONIN I (BEAKER) (test xsbd=877) < ng/mL 0.00-0.03 Troponin I (TnI) levels [...] acidosis, acute neurological disease, and persistent tachyarrhythmia.CT, [id number] 16:46:00PO contrastFINAL REPORT INDICATION:42-year-old female with epigastric [...] MDReport Verified Date/Time: 10/26/2017 16:46:44 Reading Location: [facility] Diagnostic Imaging Reading Room - [place] [address] HEPATITIS PANEL, [id number] 10:50:00 Test Item Value Reference Range Comments HEPATITIS A IGM ANTIBODY (BEAKER) (test Nonreactive Nonreactive hsdr=475) HEPATITIS B CORE IGM ANTIBODY (BEAKER) (test Nonreactive Nonreactive nsyt=049) HEPATITIS C ANTIBODY (BEAKER) (test yyee=715) Reactive Nonreactive HEPATITIS B SURFACE ANTIGEN (2) (BEAKER) (test Nonreactive Nonreactive xwdf=1379) TROPONIN [id number] 08:46:00 Test Item Value Reference Range Comments TROPONIN I (BEAKER) (test wdka=632) < ng/mL 0.00-0.03 Troponin I (TnI) levels [...] failure, acidosis, acute neurological disease, and persistent tachyarrhythmia.[id number] 08:38:00 Test Item Value Reference Range Comments MAGNESIUM (BEAKER) (test awyr=679) 1.9 mg/dL 1.6-2.6 BASIC METABOLIC [id number] 08:38:00 Test Item Value Reference Range Comments SODIUM (BEAKER) (test 138 meq/L 136-145 jwuh=113) POTASSIUM (BEAKER) (test 3.5 meq/L 3.5-5.1 ggxp=276) CHLORIDE (BEAKER) (test 105 meq/L 98-107 iloj=778) CO2 (BEAKER) (test 25 meq/L 22-29 isjr=085) BLOOD UREA NITROGEN 7 mg/dL 7-21 (BEAKER) (test qnks=687) CREATININE (BEAKER) (test 0.76 mg/dL 0.57-1.25 fvcc=792) GLUCOSE RANDOM (BEAKER) 100 mg/dL 70-105 (test xrcj=944) CALCIUM (BEAKER) (test 9.1 mg/dL 8.4-10.2 soqg=286) EGFR (BEAKER) (test 83 mL/min/1.73 sq m ESTIMATED GFR IS NOT ntxe=0110) ACCURATE CREATININE CLEARANCE IN PREDICTING GLOMERULAR FILTRATION RATE. ESTIMATED GFR IS NOT APPLICABLE FOR DIALYSIS PATIENTS. HEPATIC FUNCTION [id number] 08:38:00 Test Item Value Reference Range Comments TOTAL PROTEIN (BEAKER) (test jaea=169) 6.8 gm/dL 6.0-8.3 ALBUMIN (BEAKER) (test zqpx=4302) 3.7 g/dL 3.5-5.0 BILIRUBIN TOTAL (BEAKER) (test umsb=549) 0.3 mg/dL 0.2-1.2 BILIRUBIN DIRECT (BEAKER) (test rzur=194) 0.2 mg/dL 0.1-0.5 ALKALINE PHOSPHATASE (BEAKER) (test vadb=601) 138 U/L 40-150 AST (SGOT) (BEAKER) (test zkgq=941) 109 U/L 5-34 ALT (SGPT) (BEAKER) (test aiwx=634) 154 U/L 6-55 [id number] 08:38:00 Test Item Value Reference Range Comments LIPASE (BEAKER) (test qjcr=300) 73 U/L 8-78 CBC W/PLT COUNT & AUTO [id number] 08:20:00 Test Item Value Reference Range Comments WHITE BLOOD CELL COUNT (BEAKER) (test jskr=738) 8.8 K/ L 3.5-10.5 RED BLOOD CELL COUNT (BEAKER) (test twrk=749) 4.33 M/ L 3.93-5.22 HEMOGLOBIN (BEAKER) (test zlft=756) 13.0 GM/DL 11.2-15.7 HEMATOCRIT (BEAKER) (test pkpe=077) 39.9 % 34.1-44.9 MEAN CORPUSCULAR VOLUME (BEAKER) (test mnhm=818) 92.1 fL 79.4-94.8 MEAN CORPUSCULAR HEMOGLOBIN (BEAKER) (test 30.0 pg 25.6-32.2 tcno=886) MEAN CORPUSCULAR HEMOGLOBIN CONC (BEAKER) (test 32.6 GM/DL 32.2-35.5 kpno=507) RED CELL DISTRIBUTION WIDTH (BEAKER) (test 15.8 % 11.7-14.4 tieg=879) PLATELET COUNT (BEAKER) (test wvfl=324) 188 K/CU MM 150-450 MEAN PLATELET VOLUME (BEAKER) (test djtd=484) 10.8 fL 9.4-12.3 NUCLEATED RED BLOOD CELLS (BEAKER) (test 0 /100 WBC 0-0 mqkj=279) NEUTROPHILS RELATIVE PERCENT (BEAKER) (test 48 % agbx=824) LYMPHOCYTES RELATIVE PERCENT (BEAKER) (test 40 % zdpl=905) MONOCYTES RELATIVE PERCENT (BEAKER) (test 9 % wnbm=356) EOSINOPHILS RELATIVE PERCENT (BEAKER) (test 2 % oncq=232) BASOPHILS RELATIVE PERCENT (BEAKER) (test 0 % xpkt=232) NEUTROPHILS ABSOLUTE COUNT (BEAKER) (test 4.22 K/ L 1.56-6.13 opnh=017) LYMPHOCYTES ABSOLUTE COUNT (BEAKER) (test 3.56 K/ L 1.18-3.74 vmdz=572) MONOCYTES ABSOLUTE COUNT (BEAKER) (test 0.83 K/ L 0.24-0.36 btee=817) EOSINOPHILS ABSOLUTE COUNT (BEAKER) (test 0.16 K/ L 0.04-0.36 hcyd=718) BASOPHILS ABSOLUTE COUNT (BEAKER) (test 0.03 K/ L 0.01-0.08 svkn=636) IMMATURE GRANULOCYTES-RELATIVE PERCENT (BEAKER) 0 % 0-1 (test slvw=9768)
[2018-03-05] MEDS ORDERED: HYDROCODONE/APAP 10/325 TAB ONE (07:43)
--- NOTE | 2018-03-05 08:07 | EDPHYS ---
Physician Documentation [facility] Name: Alysa Saldaña Age: 43 yrs Sex: Female : 1975 Arrival Date: 03/05/2018 Time: 07:18 Bed 13 Private MD: None, None ED Physician Clint Carl HPI: 03/05 07:28 This 43 yrs old Female presents to ER via Unassigned with complaints of Foot jr8 Injury. 07:28 The patient presents with decreased range of motion, pain, tenderness. The complaints jr8 affect the dorsum of right foot. Context: The problem was sustained at home. Onset: The symptoms/episode began/occurred acutely, last night. Modifying factors: The symptoms are alleviated by nothing. the symptoms are aggravated by movement, weight bearing. Associated signs and symptoms: The patient has no apparent associated signs or symptoms. Severity of symptoms: At their worst the symptoms were moderate, in the emergency department the symptoms are unchanged. The patient has not experienced similar symptoms in the past. The patient has not recently seen a physician. Was walking around her bed last night and accidently kicked side post of bed. Since then has had pain to right foot . 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 - Social history:: Smoking status: Patient uses tobacco products, smokes one-half pack cigarettes per day. - Ebola Screening: : Patient negative for fever greater than or equal to 101.5 degrees Fahrenheit, and additional compatible Ebola Virus Disease symptoms Patient denies exposure to infectious person Patient denies travel to an Ebola-affected area in the 21 days before illness onset No symptoms or risks identified at this time. ROS: 07:28 Constitutional: Negative for fever, chills, and weight loss. jr8 07:28 MS/extremity: Positive for decreased range of motion, pain, tenderness, of the dorsum of right foot. 07:28 All other systems are negative. Exam: 07:28 Cardiovascular: Regular rate and rhythm with a normal S1 and S2. No gallops, murmurs, jr8 or rubs. Normal PMI, no JVD. No pulse deficits. Respiratory: Lungs have equal breath sounds bilaterally, clear to auscultation and percussion. No rales, rhonchi or wheezes noted. No increased work of breathing, no retractions or nasal flaring. Abdomen/GI: Soft, non-tender, with normal bowel sounds. No distension or tympany. No guarding or rebound. No evidence of tenderness throughout. Back: No spinal tenderness. No costovertebral tenderness. Full range of motion. Skin: Warm, dry with normal turgor. Normal color with no rashes, no lesions, and no evidence of cellulitis. Neuro: Awake and alert, GCS 15, oriented to person, place, time, and situation. Cranial nerves II-XII grossly intact. Motor strength 5/5 in all extremities. Sensory grossly intact. Cerebellar exam normal. Normal gait. 07:28 Musculoskeletal/extremity: Extremities: grossly normal except: noted in the right foot: Patient with mild swelling to dorsum right foot near first through third digits. Pain to dorsum and plantar portion of forefoot near the first through third digits. No obvious deformity, abrasions, or laceration , ROM: limited active range of motion, limited passive range of motion, limited active range of motion due to pain, limited passive range of motion due to pain, Circulation is intact in all extremities. Sensation intact. Vital Signs: 07:35 BP 103 / 60; Pulse 92; Resp 18; Temp 98.2; Pulse Ox 100% on R/A; Weight 92.99 kg; iw Height 5 ft. 4 in. (162.56 cm); Pain 9/10; 08:15 BP 100 / 60; Pulse 90; Resp 18; Pulse Ox 100% on R/A; hj 07:35 Body Mass Index 35.19 (92.99 kg, 162.56 cm) iw Procedures: 08:05 Splinting: Splint applied to right foot using Ortho 3D boot, applied by tech. Examined jr8 by co, post splint application: neurovascular intact, 2+ distal pulses palpable, brisk capillary refill noted, Patient tolerated well. MDM: 07:21 Patient medically screened. jr8 08:05 Data reviewed: vital signs, nurses notes, radiologic studies, plain films, and as a jr8 result, I will discharge patient. Data interpreted: Pulse oximetry: on room air is 100 %. Interpretation: normal. 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 03/05 07:28 Order name: XRAY Foot RIGHT 3 View jr8 03/05 08:11 Order name: Ortho shoe; Complete Time: 08:11 5 Administered Medications: 07:28 Drug: [place] 10 mg-325 mg 1 tabs Route: PO; 08:16 Follow up: Response: No adverse reaction; Pain is decreased Disposition: 21:29 Co-signature as Attending Physician, Clint Carl MD I agree with the assessment and wa plan of care. Disposition: 03/05/18 08:07 Discharged to Home. Impression: Displaced fracture of proximal phalanx of right great toe. - Condition is Stable. - Discharge Instructions: Toe Fracture. - Prescriptions for Tylenol- Codeine #3 300-30 mg Oral Tablet - take 2 tablets by ORAL route every 6 hours As needed; 20 tablet. - Medication Reconciliation Form, Thank You Letter, Antibiotic Education, Prescription Opioid Use form. - Follow up: Justin Green DPM; When: 5 - 6 days; Reason: Recheck today's complaints, Continuance of care, Re-evaluation by your physician. - Problem is new. - Symptoms have improved. Signatures: Dispatcher [employer] EDMS Sara Andrews RN RN iw Roszak, Josh, PA PA jr8 Tirso Bell RN RN hj Martinez, [facility] Clitn Carl MD MD wa Corrections: (The following items were deleted from the chart) 08:16 08:07 03/05/2018 08:07 Discharged to Home. Impression: Displaced fracture of proximal hj phalanx of right great toe. Condition is Stable. Forms are Medication Reconciliation Form, Thank You Letter, Antibiotic Education, Prescription Opioid Use. Follow up: Justin Green; When: 5 - 6 days; Reason: Recheck today's complaints, Continuance of care, Re-evaluation by your physician. Problem is new. Symptoms have improved. jr8
--- NOTE | 2018-03-05 08:07 | ER ---
Nurse's Notes [facility] Name: Alysa Saldaña Age: 43 yrs Sex: Female : 1975 Arrival Date: 03/05/2018 Time: 07:18 Bed 13 Private MD: None, None Diagnosis: Displaced fracture of proximal phalanx of right great toe Presentation: 03/05 07:32 Presenting complaint: Patient states: kicked the bed post last night, bruising and iw swelling to right great toe and top of foot. Transition of care: patient was not received from another setting of care. Onset of symptoms was March 05, 2018. Risk Assessment: Do you want to hurt yourself or someone else? Patient reports no desire to harm self or others. Initial Sepsis Screen: Does the patient meet any 2 criteria? No. Patient's initial sepsis screen is negative. Does the patient have a suspected source of infection? No. Patient's initial sepsis screen is negative. Care prior to arrival: None. 07:32 Method Of Arrival: Ambulatory iw 07:32 Acuity: CHETAN 4 iw Triage Assessment: 07:39 General: Appears in no apparent distress. uncomfortable, Behavior is calm, cooperative, hj appropriate for age. Pain: Complains of pain in dorsum of right foot. EENT: No signs and/or symptoms were reported regarding the EENT system. Neuro: Level of Consciousness is awake, alert, obeys commands, Oriented to person, place, time, situation, Appropriate for age. Cardiovascular: Capillary refill < 3 seconds Patient's skin is warm and dry. Respiratory: Airway is patent is compromised Respiratory effort is even, unlabored, Respiratory pattern is regular, symmetrical. GI: No signs and/or symptoms were reported involving the gastrointestinal system. : No signs and/or symptoms were reported regarding the genitourinary system. Derm: No signs and/or symptoms reported regarding the dermatologic system. Musculoskeletal: Reports pain in dorsum of right foot. 07:39 Injury Description: tripped. 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 - Social history:: Smoking status: Patient uses tobacco products, smokes one-half pack cigarettes per day. - Ebola Screening: : Patient negative for fever greater than or equal to 101.5 degrees Fahrenheit, and additional compatible Ebola Virus Disease symptoms Patient denies exposure to infectious person Patient denies travel to an Ebola-affected area in the 21 days before illness onset No symptoms or risks identified at this time. Screenin:39 Abuse screen: Denies threats or abuse. Denies injuries from another. Nutritional hj screening: No deficits noted. Tuberculosis screening: No symptoms or risk factors identified. Fall Risk None identified. Assessment: 07:42 Reassessment: see triage for assessment. Reassessment: XRAY taken. hj Vital Signs: 07:35 BP 103 / 60; Pulse 92; Resp 18; Temp 98.2; Pulse Ox 100% on R/A; Weight 92.99 kg; iw Height 5 ft. 4 in. (162.56 cm); Pain 9/10; 08:15 BP 100 / 60; Pulse 90; Resp 18; Pulse Ox 100% on R/A; hj 07:35 Body Mass Index 35.19 (92.99 kg, 162.56 cm) iw ED Course: 07:18 Patient arrived in ED. sb2 07:18 None, None is Private Physician. sb2 07:21 Cristiano Blanc PA is PHCP. jr8 07:21 Clint Carl MD is Attending Physician. jr8 07:22 Tirso Bell RN is Primary Nurse. hj 07:34 Triage completed. iw 07:37 Arm band placed on. iw 07:41 Patient has correct armband on for positive identification. Bed in low position. Call hj light in reach. Side rails up X 1. 07:44 X-ray completed. Portable x-ray completed in exam room. Patient tolerated procedure sg4 well. 07:46 XRAY Foot RIGHT 3 View In Process Unspecified. EDMS 08:05 Justin Green DPM is Referral Physician. jr8 08:08 Ortho shoe applied to right foot. SHORT ORTHO BOOT TO RIGHT FOOT. mh5 08:14 No provider procedures requiring assistance completed. Patient did not have IV access hj during this emergency room visit. Administered Medications: 07:28 Drug: [place] 10 mg-325 mg 1 tabs Route: PO; 08:16 Follow up: Response: No adverse reaction; Pain is decreased sree Outcome: 08:07 Discharge ordered by MD. gill 08:14 Discharged to home ambulatory, with family, with ortho boots 08:14 Condition: stable 08:14 Discharge instructions given to patient, Instructed on discharge instructions, follow up and referral plans. medication usage, Demonstrated understanding of instructions, follow-up care, medications, Prescriptions given X 1. 08:16 Patient left the ED. sree Signatures: Dispatcher [employer] EDMS Sara Andrews RN RN iw Roszak, Josh, PA PA jr8 Tirso Bell RN RN hj Martinez, Maria [facility] Rylie Cheng2 Mari Hinkle 4
--- NOTE | 2018-03-05 09:20 | RAD REPORT ---
EXAM DESCRIPTION: RAD - Foot Right 3 View - 03/05/2018 7:47 am CLINICAL HISTORY: PAIN COMPARISON: No comparisons FINDINGS: Oblique lucency is seen in the proximal phalanx of the right great toe suspicious for nond isplaced fracture. No additional fracture or dislocation seen.
== END 2018-03-05 08:16 | disposition home or self-care (01) ==
LOC: ER 07:14
DX: S92.411A Displaced fracture of proximal phalanx of right great toe, initial encounter for closed fracture (principal); W22.8XXA Striking against or struck by other objects, initial encounter; Y92.003 Bedroom of unspecified non-institutional (private) residence as the place of occurrence of the external cause; F17.210 Nicotine dependence, cigarettes, uncomplicated
CPT/HCPCS: 99284

== ENCOUNTER 2018-03-14 13:26 | Emergency (ER) | payer SELFPAY ==
--- OUTSIDE RECORDS SUMMARY | 2018-03-14 13:29 | XMS REPORT ---
:1975 Author Organization [facility] Address [address] [place] [address] Care Team Providers Name Role Phone LOVE [...] Clinicians Facility Department ID 2017-10-25 2017-10-25 Emergency [facility] [id number] 23:30:27 23:30:27 2017-10-25 2017-10-25 Emergency [facility] [id number] 21:51:50 21:51:50 2016-07-14 2016-07-14 Emergency [facility] [id number] 14:16:54 14:16:54 2016-07-14 2016-07-14 Emergency [facility] [id number] 11:09:42 11:09:42 Results Test Description Test Time Test Comments Text Results Atomic Results Result Comments HEPATIC FUNCTION PANEL 2017-10-27 04:12:00 Test Item Value Reference Range Comments TOTAL PROTEIN (BEAKER) (test euwa=206) 6.7 gm/dL 6.0-8.3 Specimen slightly hemolyzed ALBUMIN (BEAKER) (test wmva=1487) 3.4 g/dL 3.5-5.0 Specimen slightly hemolyzed BILIRUBIN TOTAL (BEAKER) (test 0.3 mg/dL 0.2-1.2 Specimen slightly hemolyzed irjj=429) BILIRUBIN DIRECT (BEAKER) (test 0.1 mg/dL 0.1-0.5 Specimen slightly hemolyzed rpfh=181) ALKALINE PHOSPHATASE (BEAKER) (test 126 U/L 40-150 ftdn=224) AST (SGOT) (BEAKER) (test fcgn=210) 101 U/L 5-34 Specimen slightly hemolyzed ALT (SGPT) (BEAKER) (test gmau=351) 142 U/L 6-55 Specimen slightly hemolyzed TROPONIN [id number] 20:53:00 Test Item Value Reference Range Comments TROPONIN I (BEAKER) (test yrad=750) < ng/mL 0.00-0.03 Troponin I (TnI) levels [...] acidosis, acute neurological disease, and persistent tachyarrhythmia.CT, [id number] 16:46:00PO contrastFINAL REPORT INDICATION:42-year-old female with epigastric [...] MDReport Verified Date/Time: 10/26/2017 16:46:44 Reading Location: [facility] Diagnostic Imaging Reading Room - [place] [id number] HEPATITIS PANEL, [id number] 10:50:00 Test Item Value Reference Range Comments HEPATITIS A IGM ANTIBODY (BEAKER) (test Nonreactive Nonreactive zwmi=167) HEPATITIS B CORE IGM ANTIBODY (BEAKER) (test Nonreactive Nonreactive hxdi=096) HEPATITIS C ANTIBODY (BEAKER) (test lehu=222) Reactive Nonreactive HEPATITIS B SURFACE ANTIGEN (2) (BEAKER) (test Nonreactive Nonreactive vhiw=9340) TROPONIN [id number] 08:46:00 Test Item Value Reference Range Comments TROPONIN I (BEAKER) (test aptx=699) < ng/mL 0.00-0.03 Troponin I (TnI) levels [...] failure, acidosis, acute neurological disease, and persistent tachyarrhythmia.[id number] 08:38:00 Test Item Value Reference Range Comments MAGNESIUM (BEAKER) (test gkua=052) 1.9 mg/dL 1.6-2.6 BASIC METABOLIC [id number] 08:38:00 Test Item Value Reference Range Comments SODIUM (BEAKER) (test 138 meq/L 136-145 tlex=091) POTASSIUM (BEAKER) (test 3.5 meq/L 3.5-5.1 fcaq=716) CHLORIDE (BEAKER) (test 105 meq/L 98-107 gykc=804) CO2 (BEAKER) (test 25 meq/L 22-29 rcvy=732) BLOOD UREA NITROGEN 7 mg/dL 7-21 (BEAKER) (test mxez=359) CREATININE (BEAKER) (test 0.76 mg/dL 0.57-1.25 kwni=493) GLUCOSE RANDOM (BEAKER) 100 mg/dL 70-105 (test nlce=261) CALCIUM (BEAKER) (test 9.1 mg/dL 8.4-10.2 nlyo=564) EGFR (BEAKER) (test 83 mL/min/1.73 sq m ESTIMATED GFR IS NOT jjfd=4831) ACCURATE CREATININE CLEARANCE IN PREDICTING GLOMERULAR FILTRATION RATE. ESTIMATED GFR IS NOT APPLICABLE FOR DIALYSIS PATIENTS. HEPATIC FUNCTION [id number] 08:38:00 Test Item Value Reference Range Comments TOTAL PROTEIN (BEAKER) (test bkbj=363) 6.8 gm/dL 6.0-8.3 ALBUMIN (BEAKER) (test pxro=9529) 3.7 g/dL 3.5-5.0 BILIRUBIN TOTAL (BEAKER) (test whiw=628) 0.3 mg/dL 0.2-1.2 BILIRUBIN DIRECT (BEAKER) (test agpv=972) 0.2 mg/dL 0.1-0.5 ALKALINE PHOSPHATASE (BEAKER) (test azfn=749) 138 U/L 40-150 AST (SGOT) (BEAKER) (test obvm=163) 109 U/L 5-34 ALT (SGPT) (BEAKER) (test uedg=157) 154 U/L 6-55 [id number] 08:38:00 Test Item Value Reference Range Comments LIPASE (BEAKER) (test kcso=497) 73 U/L 8-78 CBC W/PLT COUNT & AUTO [id number] 08:20:00 Test Item Value Reference Range Comments WHITE BLOOD CELL COUNT (BEAKER) (test dilf=386) 8.8 K/ L 3.5-10.5 RED BLOOD CELL COUNT (BEAKER) (test dptw=813) 4.33 M/ L 3.93-5.22 HEMOGLOBIN (BEAKER) (test jvip=810) 13.0 GM/DL 11.2-15.7 HEMATOCRIT (BEAKER) (test krda=392) 39.9 % 34.1-44.9 MEAN CORPUSCULAR VOLUME (BEAKER) (test gswn=666) 92.1 fL 79.4-94.8 MEAN CORPUSCULAR HEMOGLOBIN (BEAKER) (test 30.0 pg 25.6-32.2 svwf=413) MEAN CORPUSCULAR HEMOGLOBIN CONC (BEAKER) (test 32.6 GM/DL 32.2-35.5 xqes=908) RED CELL DISTRIBUTION WIDTH (BEAKER) (test 15.8 % 11.7-14.4 bdro=187) PLATELET COUNT (BEAKER) (test ropj=133) 188 K/CU MM 150-450 MEAN PLATELET VOLUME (BEAKER) (test uwdf=795) 10.8 fL 9.4-12.3 NUCLEATED RED BLOOD CELLS (BEAKER) (test 0 /100 WBC 0-0 uokf=562) NEUTROPHILS RELATIVE PERCENT (BEAKER) (test 48 % raij=551) LYMPHOCYTES RELATIVE PERCENT (BEAKER) (test 40 % tqhv=107) MONOCYTES RELATIVE PERCENT (BEAKER) (test 9 % ojis=248) EOSINOPHILS RELATIVE PERCENT (BEAKER) (test 2 % smkb=416) BASOPHILS RELATIVE PERCENT (BEAKER) (test 0 % rdml=285) NEUTROPHILS ABSOLUTE COUNT (BEAKER) (test 4.22 K/ L 1.56-6.13 jqqk=253) LYMPHOCYTES ABSOLUTE COUNT (BEAKER) (test 3.56 K/ L 1.18-3.74 ysry=251) MONOCYTES ABSOLUTE COUNT (BEAKER) (test 0.83 K/ L 0.24-0.36 bbhr=342) EOSINOPHILS ABSOLUTE COUNT (BEAKER) (test 0.16 K/ L 0.04-0.36 fkyi=772) BASOPHILS ABSOLUTE COUNT (BEAKER) (test 0.03 K/ L 0.01-0.08 ruvg=097) IMMATURE GRANULOCYTES-RELATIVE PERCENT (BEAKER) 0 % 0-1 (test tymv=1895)
--- OUTSIDE RECORDS SUMMARY | 2018-03-14 13:29 | XMS REPORT | Clinical Summary ---
:[address] [facility] Address [address] [place] [address] Care Team Providers Name Role Phone Pcp, [...] chronic pain 10/27/2017 Coronary artery disease involving atka coronary artery of atka heart 10/26 without angina pectoris Peripheral vascular disease 10/26/2017 Chronic hepatitis C without hepatic coma 10/26/2017 Epigastric pain 10/26/2017 Transaminitis 10/26/2017 Epigastric abdominal pain 10/26/2017 Encounters Date Type Specialty Care Team Description 10/26/2017 - Hospital Encounter General Internal MilagrosIsela lynn Chronic hepatitis C without hepatic coma (HCC); 10/27/2017 Medicine Nusrat Mcclain, Coronary artery disease involving atka coronary artery of atka heart without angina pectoris; Epigastric abdominal pain; Bridgett, Peripheral vascular disease (HCC); Jaimie Transaminitis MD [address], Kaia Carnes MD after 03/13/2017 Social History Tobacco Use Types Packs/Day Years [...] Not on file Implants Implanted Type Area Plastic Injection Mold Maker Device Shelf Model / Serial / Identifier Expiration Lot Date Dbx Melody,1cc Aseptic - [id number] Bone Left: MUSCULOSKELETAL [id number] / Implanted: Qty: 1 on 08/08/2013 by Mike Moore MD Spine TRANSPLANT [id number] / Cervical Screw,Zephir Self Drilling 4.0x13mm - [id number] Spine Left: MEDTR[employer] SPINAL [id number] / Implanted: Qty: 1 on 08/08/2013 by Mike Moore MD [employer] / Cervical Screw,Zephir Selfdrill 3.5x13mm - [id number] Spine Left: [employer] SPINAL [id number] / Implanted: Qty: 4 on 08/08/2013 by Mike Moore MD Spine [employer] BIOLOG[employer] / Cervical Spacer,Cornerstone Psr Lateral Ports [id number] - [id number] Spine Left: [employer] SPINAL 12/18/2020 [id number] / Implanted: Qty: 1 on 08/08/2013 by Mike Moore MD Spine [employer] BIOLOG[employer] / Cervical [id number] Spacer,Cornerstone Psr Lateral Ports [id number] - [id number] Spine Left: MED[employer] SPINAL 04/25/2021 [id number] / Implanted: Qty: 1 on 08/08/2013 by Mike Moore MD [employer]ine [employer] BIOLOG[employer] / Cervical [id number] Plate,Zephir Ti 42.5mm - [id number] Spine Left: MED[employer] SPINAL [id number] / Implanted: Qty: 1 on 08/08/2013 by [...] procedure are in the results section. after 03/13/2017 Results EKG-SCANNED (10/28/2017 9:00 AM CDT) Narrative Performed At RHYTHM STRIP - SCAN (10/28/2017 9:00 AM CDT) Narrative Performed At ECHOCARDIOGRAM REPORT - SCAN (10/27/2017 11:00 AM CDT) Narrative Performed At 2D Echo W/Doppler(CW/PW/Color) (10/27/2017 7:39 AM CDT) Ejection Fraction [facility] Narrative Performed At Transthoracic Echocardiography Report (TTE) [facility] Demographics Patient NameSMITH, JENNIFERDate of Study10/27/2017 MANPREET Gender Female Visit [id number] Race Unknown [id number] Number Date of 1975 Charlie Agustin MD Physician Age 42 year(s) SonographerDeyvi Zaragoza Production Welder Ankit Chang MD Physician Procedure Type of [...] Study 10/27/2017 MANPREET Gender Female Visit Number [id number] Race Unknown Room Number 725 Number Date of 1975 Referring Kaia Agustin MD Physician Age 42 year(s) Insurance Case Manager Deyvi Zaragoza Production Welder Ankit Robb Interpreting Franki Chang MD Physician [...] City/State/Zipcode Phone Number [facility] Hepatic function panel (10/27/2017 3:33 AM CDT)Only the most recent of2 resultswithin the time period is included. Protein, Total 6.7Comment: Specimen 6.0 - 8.3 gm/dL [facility] hemolyzed [facility] Albumin 3.4 (L)Comment: Specimen 3.5 - 5.0 g/dL [facility] slightly hemolyzed [facility] Total Bilirubin 0.3Comment: Specimen 0.2 - 1.2 mg/dL [facility] Bilirubin, Direct 0.1Comment: Specimen 0.1 - 0.5 mg/dL [facility] hemolyzed [facility] Alkaline Phosphatase 126 40 - 150 U/L [facility] AST 101 (H)Comment: Specimen 5 - 34 U/L [facility] hemolyzed [facility] ALT 142 (H)Comment: Specimen 6 - 55 U/L [facility] hemolyzed [facility] Specimen Blood - Arm, Left Performing Organization Address City/[facility] Phone Number [address] [address] CENTER Troponin I (10/26/2017 8:14 PM CDT)Only the most recent of2 resultswithin the time period is included. Troponin I <0.01 0.00 - 0.03 ng/mL [facility] Specimen Blood - Arm, Left Narrative Performed At [facility] Troponin I (TnI) levels must be interpreted [...] disease, and persistent tachyarrhythmia. Performing Organization Address City/State/[facility] Phone Number [address] [place] [address] abdomen/pelvis with IV contrast (10/26/2017 3:47 PM CDT) Narrative Performed At FINAL REPORT GE [facility] INDICATION: 42-year-old female with epigastric abdominal pain. [...] MD Report Verified Date/Time:10/26/2017 16:46:44 Reading Location: [facility] Diagnostic Imaging Reading Room - [place] [address] Procedure Note Interface, External Ris In - [...] Report Verified Date/Time: 10/26/2017 16:46:44 Reading Location: [facility] Diagnostic Imaging Reading Room - [place] [address] Performing Organization Address City/State/Zipcode Phone Number GE RIS CBC with platelet count + automated diff (10/26/2017 8:09 AM CDT) WBC 8.8 3.5 - 10.5 K/L [facility] RBC 4.33 3.93 - 5.22 M/L [facility] Hemoglobin 13.0 11.2 - 15.7 GM/DL [facility] Hematocrit 39.9 34.1 - 44.9 % [facility] MCV 92.1 79.4 - 94.8 fL [facility] MCH 30.0 25.6 - 32.2 pg [facility] MCHC 32.6 32.2 - 35.5 GM/DL [facility] RDW 15.8 (H) 11.7 - 14.4 % [facility] Platelets 188 150 - 450 K/CU MM [facility] MPV 10.8 9.4 - 12.3 fL [facility] nRBC 0 0 - 0 /100 WBC [facility] % Neutros 48 % [facility] % Lymphs 40 % [facility] % Monos 9 % [facility] % Eos 2 % [facility] % Baso 0 % [facility] # Neutros 4.22 1.56 - 6.13 K/L [facility] # Lymphs 3.56 1.18 - 3.74 K/L [facility] # Monos 0.83 (H) 0.24 - 0.36 K/L [facility] # Eos 0.16 0.04 - 0.36 K/L [facility] # Baso 0.03 0.01 - 0.08 K/L [facility] Immature Granulocytes-Relative 0 0 - 1 % [facility] Specimen Blood - Arm, Right Performing Organization Address City/[facility] Phone Number [address] [address] [phone] [place] Hepatitis panel, acute (10/26/2017 8:09 AM CDT) Hep A IgM HEPATITIS A TEST NEGATIVE Nonreactive [facility] Hep B C IgM NON-REACTIVE Nonreactive [facility] Hepatitis C Ab Reactive (A) Nonreactive [facility] hepatitis B Surface Ag NON-REACTIVE Nonreactive [facility] Specimen Blood - Arm, Right Performing Organization Address [facility]/Zipcode Phone Number [address] [address] CENTER Magnesium (10/26/2017 8:09 AM CDT) Magnesium 1.9 1.6 - 2.6 mg/dL [facility] Specimen Blood - Arm, Right Performing Organization Address [facility] Phone Number [address] [address] C[place] Lipase (10/26/2017 8:09 AM CDT) Lipase 73 8 - 78 U/L [facility] Specimen Blood - Arm, Right Performing Organization Address [facility] Phone Number [address] [address] [phone] [place] Basic metabolic panel (10/26/2017 8:09 AM CDT) Sodium 138 136 - 145 meq/L [facility] Potassium 3.5 3.5 - 5.1 meq/L [facility] Chloride 105 98 - 107 meq/L [facility] CO2 25 22 - 29 meq/L [facility] BUN 7 7 - 21 mg/dL [facility] Creatinine 0.76 0.57 - 1.25 mg/dL [facility] Glucose 100 70 - 105 mg/dL [facility] Calcium 9.1 8.4 - 10.2 mg/dL [facility] EGFR 83Comment: ESTIMATED GFR IS mL/min/1.73 sq m [facility] NOT ACCURATE CREATININE [facility] CLEARANCE IN PREDICTING GLOMERULAR FILTRATION RATE. ESTIMATED GFR IS NOT APPLICABLE FOR DIALYSIS PATIENTS. Specimen Blood - Arm, Right Performing Organization Address [facility] Phone Number [address] [address] [place] ECG 12 lead (10/26/2017 6:55 AM CDT) Narrative Performed At Ventricular Rate 64 BPM GE MUSE Atrial Rate 64 BPM P-R Interval 148 ms QRS Duration 90 ms Q-T Interval 412 ms QTC Calculation(Bazett) 425 ms P [place] 56 degrees R [place] 60 degrees T [place] 80 degrees Normal sinus rhythm Normal ECG [...] 412 ms QTC Calculation(Bazett) 425 ms P [place] 56 degrees R [place] 60 degrees T [place] 80 degrees Normal sinus rhythm Normal ECG When compared with ECG of 08-NOV-2008 12:22, Q waves are no longer seen inferior leads Nonspecific T wave abnormality now evident in aVL Confirmed by MD JUAN PABLO, YOHANNES ([id number]) on 10/26/2017 7:52:47 AM Performing Organization Address City/State/Zipcode Phone Number GE MUSE after 03/13/2017 Advance Directives For more information, please contact:[address] [phone] Code Status Date Activated Date Inactivated Comments Full Code 10/26/2017 5:41 AM 10/27/2017 2:54 PM This code status was determined by: Patient Code ONE 08/08/2013 6:59 AM 08/09/2013 1:32 PM All possible means of support including;cardiac massage, mechanical ventilation, and defibrillation will be used to support life.
--- OUTSIDE RECORDS SUMMARY | 2018-03-14 13:29 | XMS REPORT | Clinical Summary ---
:1975 Author Organization [facility] Address [address] [place] [address] Care Team Providers Name Role Phone Unavailable [...] vomiting with nausea, unspecified vomiting type after 03/13/2017 Social History Tobacco Use Types [...] in the results section. after 03/13/2017 Results TROPONIN I POC (10/26/2017 1:54 AM CDT)Only the most recent of2 resultswithin the time period is included. Troponin POC 0.00 0.00 - 0.08 ng/mL [facility] 1 Performing Organization Address City/State/Zipcode Phone Number MISYS [facility] 1 12 LEAD EKG (10/26/2017 12:02 AM CDT) 12 LEAD EKG FOR P [facility] SMS Test Date:2017-10-26 Pat Name: DG SALDAÑA Department: : Gender: F Program Manager: :1975 Requested By: Order Number:Reading : Minh Pratt Measurements IntervalsAxis Rate: 89 P: 58 NM: 133QRS: 48 QRSD: 95 T: 66 QT: 340 QTc:414 Interpretive Statements SINUS RHYTHM Electronically Signed On 10-26-17 17:41:15 CDT by Minh Pratt Performing Organization Address [facility] Phone Number [facility] XRAY CHEST 1 VIEW (10/25/2017 11:58 PM CDT) Impressions Performed At IMPRESSION: [facility] Subacute left posterior third through sixth rib fractures. Otherwise, no acute cardiopulmonary disease. Signed By: Kenrick French MD, 10/26/2017 12:50 AM Narrative Performed At [facility] EXAM: XR CHEST 1 VIEW DATE:10/26/2017 12:04 [...] MD, 10/26/2017 12:50 AM Performing Organization Address [facility] Phone Number [facility] BMP POC (10/25/2017 11:22 PM CDT) CO2 [...] 1 Creatinine POC 0.7 0.6 - 1.3 [facility] mg/dL 1 Calcium Ionized POC 1.18 1.15 - 1.29 [facility] mmol/L 1 Hemoglobin POC 15.3 12.0 - 16.0 [facility] g/dL 1 Hematocrit POC 45.0 37.0 - 47.0 % [facility] 1 GFR, Estimated >60 mL/min/1.73 [facility] m2 1 GFR, Estim, Afr-Am >60 mL/min/1.73 [facility] m2 1 Performing Organization Address [facility] Phone Number MISYS [facility] 1 PT/INR/PTT (10/25/2017 10:58 PM CDT) PT 11.8 11.8 - 15.0 [facility] Seconds 2 INR 0.9 [facility] 2 SUGGESTED THERAPEUTIC RANGES: INR 2.0-3.0 for MODERATE INTENSITY ANTICOAGULATION INR 2.5-3.5 for HIGH INTENSITY ANTICOAGULATION PTT 29.3 23.6 - 36.4 [facility] Seconds 2 Specimen Blood Performing Organization Address [facility] Phone Number [facility] 2 LIVER PROFILE (10/25/2017 10:58 PM CDT) T Protein 7.7 6.4 - 8.2 g/dL [facility] 2 Albumin 3.5 3.4 - 5.0 g/dL [facility] 2 T Bilirubin 0.4 0.2 - 1.0 mg/dL [facility] 2 Alk Phos 163 (H) 45 - 117 U/L [facility] 2 AST 151 (H) 15 - 37 U/L [facility] 2 ALT 201 (H) 12 - 78 U/L [facility] 2 D Bilirubin 0.1 0.0 - 0.2 mg/dL [facility] 2 Specimen Blood Performing Organization Address [facility] Phone Number MISYS [facility] 2 LIPASE (10/25/2017 10:58 PM CDT) Lipase 334 73 - 393 U/L [facility] Specimen Blood Performing Organization Address City/State/Zipcode Phone Number MISYS [facility] 2 CBC/DIFF (10/25/2017 10:58 PM CDT) WBC 11.5 (H) 4.5 - 11.0 K/uL [facility] 2 RBC 4.74 4.20 - 5.40 [facility] 2 M/uL Hemoglobin 14.3 12.0 - 16.0 [facility] 2 g/dL Hematocrit 43.3 37.0 - 47.0 % [facility] 2 MCV 91 82 - 92 fL [facility] 2 MCH 30.2 27.0 - 32.0 pg [facility] 2 MCHC 33.0 32.0 - 36.0 [facility] 2 g/dL RDW 52.3 (H) 36.4 - 46.3 fL [facility] 2 Platelet 211 150 - 400 K/uL [facility] 2 Mean Platelet Volume 11.6 9.4 - 12.4 fL [facility] 2 Percent NRBC 0.0 [facility] 2 Absolute NRBC 0.00 [...] 2 K/uL Specimen Blood Performing Organization Address City/[facility] Phone Number MISYS [facility] 2 12 LEAD EKG (10/25/2017 9:49 PM CDT) 12 LEAD EKG FOR [facility] Matt Biggs [facility] SMS Test Date:2017-10-25 Pat Name: DG SALDAÑA Department: : Gender: F Program Manager: [id number] :1975 Requested By: Order Number:Reading MD: Minh Pratt Measurements IntervalsAxis Rate: 106P: 61 NM: 159QRS: 60 QRSD: 93 T: 66 QT: 312 QTc:415 Interpretive Statements SINUS TACHYCARDIA MODERATE ST DEPRESSION NON SPECIFIC T WAVE ABNORMALITY Electronically Signed On 10-26-17 17:41:13 CDT by Minh Pratt Performing Organization Address [facility] Phone Number SMS after 03/13/2017 Insurance Payer Benefit Plan / Subscriber ID Effective Dates Phone Address Type Group [employer]CH[employer] PLAN HCHD PLAN 1 xxxxxxxxx 2017-[phone] [address] (Home) [place] [address]
[2018-03-14 14:35] LABS: Urine Bacteria >50 /HPF (<20); Urine Culture Reflex Order REFLEXED; Urine RBC <5 /HPF (NONE SEEN)
[2018-03-14 14:36] LABS: Urine Blood TRACE (NEG); Urine Glucose NEGATIVE (NEG); Urine Protein NEGATIVE (NEG)
[2018-03-14 15:12] LABS: Absolute Lymphocytes (CBC) 1.9 K/uL (0.7-4.9); Absolute Monocytes 0.7 K/uL (0.1-1.3); Absolute Neutrophil 7.3 K/uL (1.8-8.0); Basophils % 1.3 % (0-1.3); Eosinophils % 0.8 % (0-4.4); Hematocrit 50.2 % (36.0-45.0); Lymphocytes % 18.9 % (15.3-44.8); MPV 9.4 fL (7.6-11.3); Monocytes % 6.8 % (3.3-12.3); RBC Red Blood Cell Count 5.26 M/uL (3.86-4.86)
[2018-03-14] MEDS ORDERED: FENTANYL CITR 100 MCG/2 ML ONE (15:16)
[2018-03-14] MEDS ORDERED: NA CHLORIDE 0.9% 1,000 ML ONE (15:16)
[2018-03-14] MEDS ORDERED: ONDANSETRON 4 MG/2 ML VIAL ONE (15:16)
--- NOTE | 2018-03-14 15:18 | RAD REPORT ---
EXAM DESCRIPTION: CT - Stone Protocol - 03/14/2018 2:47 pm CLINICAL HISTORY: Abdominal pain. Left flank pain COMPARISON: None. TECHNIQUE: Computed axial tomography of the abdomen pelvis was obtained without oral or IV contrast. Lack of IV and oral contrast limits evaluation of solid organs, bowel, and vessels. Coronal reformat alexandra images were obtained and reviewed. All CT scans are performed using dose optimization technique as appropriate and may include automated exposure control or mA/KV adjustment according to patient size. FINDINGS: A renal calculus is not seen. An ureteral calculus is not noted. A bladder calculus is not present. The liver, pancreas and adrenals appear grossly normal. Splenic granulomata are noted. There is no evidence of diverticulitis. Tiny umbilical hernia is present. An aorto bi-iliac stent is in place. IMPRESSION: Negative for a genitourinary calculus
[2018-03-14 15:25] LABS: Bilirubin Direct 0.2 mg/dL (0-0.2); Bilirubin Total 0.5 mg/dL (0.2-1.0); Potassium 4.2 mmol/L (3.5-5.1); Protein, Total 8.5 g/dL (6.4-8.2)
--- NOTE | 2018-03-14 16:34 | RAD REPORT ---
EXAM DESCRIPTION: US - Abdomen Exam Limited - 03/14/2018 4:25 pm CLINICAL HISTORY: upper abdomen pain COMPARISON: No comparisons FINDINGS: The gallbladder is surgically absent. No pericholecystic fluid or gallbladder wall thicken ing. The common bile duct is normal measuring 4-5 mm. The liver demonstrates mild fatty liver. IMPRESSION: Mild fatty liver. Cholecystectomy with negative biliary tree findings.
[2018-03-14] MEDS ORDERED: CEFTRIAXONE/SWI 1gm 1 GM/10 ML SYR ONE (16:50)
[2018-03-14] MEDS ORDERED: KETOROLAC 30 MG/ML INJ ONE (16:50)
--- NOTE | 2018-03-14 17:01 | ER ---
Nurse's Notes [facility] Name: Alysa Saldaña Age: 43 yrs Sex: Female : 1975 Arrival Date: 03/14/2018 Time: 13:31 Bed 5 Private MD: None, None Diagnosis: Urinary tract infection, site not specified;Right pyelonephritis Presentation: 03/14 13:33 Presenting complaint: Patient states: Left sided llank pain. LLQ pain, reports pain and sg crampin in suprapubic area that worsens with urination, reports having really dark urine, feels fatigued with body aches and joint pain, reports low grade fever at home. Transition of care: patient was not received from another setting of care. Onset of symptoms was March 14, 2018. Risk Assessment: Do you want to hurt yourself or someone else? Patient reports no desire to harm self or others. Initial Sepsis Screen: Does the patient meet any 2 criteria? HR > 90 bpm. Does the patient have a suspected source of infection? Yes: Dysuria/Frequency/Urgency/UTI. Care prior to arrival: None. 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 - Social history:: Smoking status: Patient uses tobacco products, smokes one-half pack cigarettes per day. - Ebola Screening: : Patient negative for fever greater than or equal to 101.5 degrees Fahrenheit, and additional compatible Ebola Virus Disease symptoms Patient denies exposure to infectious person Patient denies travel to an Ebola-affected area in the 21 days before illness onset No symptoms or risks identified at this time. Screenin:40 Abuse screen: Denies threats or abuse. Denies injuries from another. Nutritional ca1 screening: No deficits noted. Tuberculosis screening: No symptoms or risk factors identified. Fall Risk None identified. Assessment: 13:40 General: Appears in no apparent distress. ill, Behavior is calm, cooperative, ca1 appropriate for age. Pain: Complains of pain in right low back Pain radiates to suprapubic area and right lower quadrant Pain currently is 9 out of 10 on a pain scale. Quality of pain is described as sharp, Pain began this morning. Pain: Pain began last night but it was worse this morning. Neuro: Level of Consciousness is awake, alert, obeys commands, Oriented to person, place, time, situation. Cardiovascular: Heart tones S1 S2 present Capillary refill < 3 seconds Patient's skin is warm and dry. Respiratory: Airway is patent Trachea midline Respiratory effort is even, unlabored, Respiratory pattern is regular, symmetrical, Breath sounds are clear bilaterally. GI: Abdomen is round non-distended, Bowel sounds present X 4 quads. Abd is soft X 4 quads Abdomen is tender to palpation in suprapubic area and right lower quadrant. GI: Reports nausea, vomiting. : Reports burning with urination, this morning. EENT: No signs and/or symptoms were reported regarding the EENT system. Derm: Skin is intact, is healthy with good turgor, Skin is pink, warm \T\ dry. Musculoskeletal: Circulation, motion, and sensation intact. 14:45 Reassessment: Patient appears in no apparent distress at this time. Patient and/or ca1 family updated on plan of care and expected duration. Pain level reassessed. Patient is alert, oriented x 3, equal unlabored respirations, skin warm/dry/pink. 15:50 Reassessment: Patient appears in no apparent distress at this time. Patient and/or ca1 family updated on plan of care and expected duration. Pain level reassessed. Patient is alert, oriented x 3, equal unlabored respirations, skin warm/dry/pink. Patient states symptoms have not improved. Notified provider. . 16:45 Reassessment: Patient appears in no apparent distress at this time. Patient is alert, ca1 oriented x 3, equal unlabored respirations, skin warm/dry/pink. Patient from [place]. 17:15 Reassessment: Patient appears in no apparent distress at this time. Patient states ca1 feeling better. Vital Signs: 13:34 BP 111 / 82; Pulse 119; Resp 19; Temp 98.8; Pulse Ox 98% ; Weight 90.72 kg; Height 5 sg ft. 4 in. (162.56 cm); Pain 10/10; 14:45 BP 115 / 80; Pulse 104; Resp 19; Pulse Ox 97% on R/A; ca1 15:30 BP 109 / 71; Pulse 101; Resp 19; Pulse Ox 97% on R/A; ca1 16:35 BP 109 / 82; Pulse 94; Resp 18; Pulse Ox 100% on R/A; ca1 17:15 BP 108 / 85; Pulse 101; Resp 19; Pulse Ox 100% on R/A; ca1 13:34 Body Mass Index 34.33 (90.72 kg, 162.56 cm) sg ED Course: 13:31 Patient arrived in ED. sb2 13:31 None, None is Private Physician. sb2 13:34 Triage completed. sg 13:34 Arm band placed on. sg 13:40 Patient has correct armband on for positive identification. Placed in gown. Bed in low ca1 position. Call light in reach. Side rails up X 1. Pulse ox on. NIBP on. 13:55 Imtiaz Resendiz PA is PHCP. cp 13:55 Junior Glass MD is Attending Physician. cp 14:18 Summer Benson RN is Primary Nurse. ca1 14:45 CT completed. Patient tolerated procedure well. Patient moved to CT. Patient moved back ia from CT. 15:03 Initial lab(s) drawn, by me, sent to lab. Inserted saline lock: 20 gauge in right em1 antecubital area, using aseptic technique. Blood collected. Missed attempt(s): 22 gauge in right forearm. 17:22 No provider procedures requiring assistance completed. IV discontinued, intact, ca1 bleeding controlled, No redness/swelling at site. Pressure dressing applied. Administered Medications: 15:10 Drug: fentaNYL (PF) 25 mcg Route: IVP; Site: right antecubital; bp 16:00 Follow up: Response: No adverse reaction; Pain is decreased ca1 15:10 Drug: Zofran 4 mg Route: IVP; Site: right antecubital; bp 16:00 Follow up: Response: No adverse reaction; Nausea is decreased ca1 15:10 Drug: NS 0.9% 1000 ml Route: IV; Rate: 1 bolus; Site: right antecubital; bp 16:15 Drug: Rocephin - (cefTRIAXone) 1 grams Route: IVPB; Infused Over: 30 mins; Site: right ca1 antecubital; 16:20 Drug: TORadol 30 mg Route: IVP; Site: right antecubital; ca1 17:24 Follow up: Response: No adverse reaction; Pain is decreased ca1 Outcome: 17:00 Discharge ordered by MD. cp 17:22 Discharged to home ambulatory. ca1 17:22 Condition: stable 17:22 Discharge instructions given to patient, Instructed on discharge instructions, follow up and referral plans. medication usage, Demonstrated understanding of instructions, follow-up care, medications, Prescriptions given X 3. 17:23 Patient left the ED. ca1 Addendum: 03/18/2018 07:42 Addendum: Culture Results: Positive urine culture. No further action required. Bacteria a a5 sensitive to prescribed antibiotic. Signatures: Vinh Carmona RN RN sg Rory Amos em1 Yessenia Flannery RN RN aa5 Imtiaz Resendiz PA PA cp Jordan, Nathan nj Peltier, Brian, RN RN bp Rylie Cheng sb2 Summer Benson RN RN ca1 Corrections: (The following items were deleted from the chart) 03/14 16:48 16:47 Reassessment: Patient appears in no apparent distress at this time. Patient ca1 and/or family updated on plan of care and expected duration. Pain level reassessed. Patient is alert, oriented x 3, equal unlabored respirations, skin warm/dry/pink. ca1 16:49 14:10 Reassessment: Patient appears in no apparent distress at this time. Patient ca1 and/or family updated on plan of care and expected duration. Pain level reassessed. Patient is alert, oriented x 3, equal unlabored respirations, skin warm/dry/pink. ca1 16:51 16:47 BP 109 / 82; Pulse 94bpm; Resp 18bpm; Pulse Ox 100% RA; ca1 ca1
--- NOTE | 2018-03-14 17:01 | EDPHYS ---
Physician Documentation [facility] Name: Alysa Saldaña Age: 43 yrs Sex: Female : 1975 Arrival Date: 03/14/2018 Time: 13:31 Bed 5 Private MD: None, None ED Physician Junior Glass HPI: 03/14 14:20 This 43 yrs old Female presents to ER via Ambulatory with complaints of cp Abdominal Pain, Back Pain, SIDE PAIN. 14:20 The patient presents with abdominal pain in the upper abdomen. cp 14:20 Onset: The symptoms/episode began/occurred last night, and became worse this morning. cp 14:20 The symptoms radiate to the right flank. Associated signs and symptoms: Pertinent cp positives: dysuria, fever, nausea, Pertinent negatives: blood in stools, constipation, diarrhea, shortness of breath, vomiting. Severity of pain: in the emergency department the pain is unchanged despite home interventions. 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 - Social history:: Smoking status: Patient uses tobacco products, smokes one-half pack cigarettes per day. - Ebola Screening: : Patient negative for fever greater than or equal to 101.5 degrees Fahrenheit, and additional compatible Ebola Virus Disease symptoms Patient denies exposure to infectious person Patient denies travel to an Ebola-affected area in the 21 days before illness onset No symptoms or risks identified at this time. ROS: 14:30 Constitutional: Negative for body aches, chills, fever, poor PO intake. cp 14:30 Eyes: Negative for injury, pain, redness, and discharge. cp 14:30 ENT: Negative for drainage from ear(s), ear pain, sore throat, difficulty swallowing, difficulty handling secretions. 14:30 Cardiovascular: Negative for chest pain, edema, palpitations. 14:30 Respiratory: Negative for cough, shortness of breath, wheezing. 14:30 Abdomen/GI: Positive for abdominal pain, nausea, Negative for vomiting, diarrhea, constipation, anorexia, black/tarry stool, rectal bleeding. 14:30 Back: Positive for flank pain, on the right. 14:30 : Positive for urinary symptoms, Negative for vaginal bleeding, vaginal discharge. 14:30 Skin: Negative for cellulitis, rash. 14:30 Neuro: Negative for altered mental status, headache, weakness. 14:30 All other systems are negative. Exam: 14:35 Constitutional: The patient appears in no acute distress, alert, awake, non-toxic, well cp developed, well nourished. 14:35 Head/Face: Normocephalic, atraumatic. cp 14:35 Eyes: Periorbital structures: appear normal, Conjunctiva: normal, no exudate, no injection, Sclera: no appreciated abnormality, Lids and lashes: appear normal, bilaterally. 14:35 ENT: External ear(s): are unremarkable, Nose: is normal, Mouth: Lips: moist, Oral mucosa: pink and intact, moist, Posterior pharynx: is normal, airway is patent, no erythema, no exudate. 14:35 Neck: ROM/movement: is normal, is supple, without pain, no range of motions limitations, no meningismus, no nuchal rigidity. 14:35 Chest/axilla: Inspection: normal, Palpation: is normal, no crepitus, no tenderness. 14:35 Cardiovascular: Rate: tachycardic, Rhythm: regular. 14:35 Respiratory: the patient does not display signs of respiratory distress, Respirations: normal, no use of accessory muscles, no retractions, no splinting, no tachypnea, labored breathing, is not present, Breath sounds: are clear throughout, no decreased breath sounds, no stridor, no wheezing. 14:35 Abdomen/GI: Inspection: abdomen appears normal, Bowel sounds: active, all quadrants, Palpation: soft, in all quadrants, moderate abdominal tenderness, in the epigastric area and right upper quadrant, rebound tenderness, is not appreciated, involuntary guarding, is not appreciated. 14:35 Back: CVA tenderness, that is moderate, is noted on the right. 14:35 Skin: cellulitis, is not appreciated, no rash present. cp 14:35 Neuro: Orientation: to person, place \T\ time. Mentation: is normal, Cerebellar function: cp is grossly normal, Motor: moves all fours, strength is normal, Sensation: is normal. Vital Signs: 13:34 BP 111 / 82; Pulse 119; Resp 19; Temp 98.8; Pulse Ox 98% ; Weight 90.72 kg; Height 5 sg ft. 4 in. (162.56 cm); Pain 10/10; 14:45 BP 115 / 80; Pulse 104; Resp 19; Pulse Ox 97% on R/A; ca1 15:30 BP 109 / 71; Pulse 101; Resp 19; Pulse Ox 97% on R/A; ca1 16:35 BP 109 / 82; Pulse 94; Resp 18; Pulse Ox 100% on R/A; ca1 17:15 BP 108 / 85; Pulse 101; Resp 19; Pulse Ox 100% on R/A; ca1 13:34 Body Mass Index 34.33 (90.72 kg, 162.56 cm) sg MDM: 13:55 Patient medically screened. cp 15:00 Differential diagnosis: appendicitis, bowel obstruction, gastritis, pancreatitis, cp Peptic Ulcer Disease, Perf. Duodenal Ulcer, Pyelonephritis, Ureterolithiasis, urinary tract infection, choledocholithiasis. 17:00 Data reviewed: vital signs, nurses notes, lab test result(s), radiologic studies, CT cp scan, ultrasound. 17:00 Counseling: I had a detailed discussion with the patient and/or guardian regarding: the cp historical points, exam findings, and any diagnostic results supporting the discharge/admit diagnosis, lab results, radiology results, the need for outpatient follow up, a family practitioner, to return to the emergency department if symptoms worsen or persist or if there are any questions or concerns that arise at home. Response to treatment: the patient's symptoms have markedly improved after treatment, VSS. Pain and nausea improved. Will discharge to home for continued monitoring. 03/14 14:17 Order name: Urine Microscopic Only; Complete Time: 16: em1 03/14 16:01 Interpretation: Normal except: UWBC >50; UBACT >50. cp 03/14 14:17 Order name: Urine Dipstick--Ancillary (enter results); Complete Time: 16: em1 03/14 16:08 Interpretation: Normal except: UBLD TRACE; UESTR 1+. cp 03/14 14:17 Order name: Urine --Ancillary (enter results); Complete Time: 16:01 em1 03/14 14:36 Order name: Basic Metabolic Panel cp 03/14 14:36 Order name: CBC with Diff 03/14 14:36 Order name: Creatinine for Radiology 03/14 14:36 Order name: Hepatic Function 03/14 14:36 Order name: Lipase 03/14 14:36 Order name: CT Stone Protocol 03/14 15:13 Order name: CBC with Automated Diff; Complete Time: 16:01 EDMS 03/14 16:01 Interpretation: Normal except: RBC 5.26; HGB 17.1; HCT 50.2. 03/14 15:26 Order name: Basic Metabolic Panel; Complete Time: 16:01 EDMS 03/14 15:26 Order name: Liver (Hepatic) Function; Complete Time: 16:01 EDMS 03/14 15:26 Order name: Lipase; Complete Time: 16:01 EDMN 03/14 15:28 Order name: Creatinine (Radiology Only); Complete Time: 16:01 EDMN 03/14 14:17 Order name: Urine Dipstick-Ancillary (obtain specimen); Complete Time: 14:17 [facility] 03/14 14:17 Order name: Urine Test (obtain specimen); Complete Time: 14:17 [facility] 03/14 14:36 Order name: IV Saline Lock; Complete Time: 15:02 03/14 14:36 Order name: Labs collected and sent; Complete Time: 15:02 03/14 15:19 Order name: CT; Complete Time: 16:01 EDMN 03/14 16:04 Order name: US Abdomen Limited: RUQ/epigastric area 03/14 16:04 Order name: NPO; Complete Time: 16:46 03/14 16:37 Order name: US EDMN Administered Medications: 15:10 Drug: fentaNYL (PF) 25 mcg Route: IVP; Site: right antecubital; bp 16:00 Follow up: Response: No adverse reaction; Pain is decreased ca1 15:10 Drug: Zofran 4 mg Route: IVP; Site: right antecubital; bp 16:00 Follow up: Response: No adverse reaction; Nausea is decreased ca1 15:10 Drug: NS 0.9% 1000 ml Route: IV; Rate: 1 bolus; Site: right antecubital; bp 16:15 Drug: Rocephin - (cefTRIAXone) 1 grams Route: IVPB; Infused Over: 30 mins; Site: right ca1 antecubital; 16:20 Drug: TORadol 30 mg Route: IVP; Site: right antecubital; ca1 17:24 Follow up: Response: No adverse reaction; Pain is decreased ca1 Disposition: 18:03 Co-signature as Attending Physician, Junior Glass MD Available for consultation at ps1 all times. Disposition: 03/14/18 17:00 Discharged to Home. Impression: Urinary tract infection, site not specified, Right pyelonephritis. - Condition is Stable. - Discharge Instructions: Pyelonephritis, Adult, Urinary Tract Infection, Adult. - Prescriptions for Tylenol- Codeine #3 300-30 mg Oral Tablet - take 2 tablets by ORAL route every 6 hours As needed; 20 tablet. Zofran 4 mg Oral Tablet - take 1 tablet by ORAL route every 12 hours As needed; 20 tablet. Bactrim DS 800- 160 mg Oral Tablet - take 1 tablet by ORAL route every 12 hours for 7 days; 14 tablet. - Medication Reconciliation Form, Thank You Letter, Antibiotic Education, Prescription Opioid Use form. - Follow up: Private Physician; When: 2 - 3 days; Reason: Recheck today's complaints. - Problem is new. - Symptoms have improved. Signatures: Dispatcher [employer] EDMS Vinh Carmona RN RN Rory Egan em1 Imtiaz Resendiz PA PA cp Kenrick Reardon RN RN Junior Escobedo MD MD ps1 Summer Benson RN RN ca1 Corrections: (The following items were deleted from the chart) 17:01 17:00 03/14/2018 17:00 Discharged to Home. Impression: Urinary tract infection, site cp not specified. Condition is Stable. Forms are Medication Reconciliation Form, Thank You Letter, Antibiotic Education, Prescription Opioid Use. Follow up: Private Physician; When: 2 - 3 days; Reason: Recheck today's complaints. Problem is new. Symptoms have improved. cp 17:23 17:01 03/14/2018 17:00 Discharged to Home. Impression: Urinary tract infection, site ca1 not specified; Right pyelonephritis. Condition is Stable. Discharge Instructions: Urinary Tract Infection, Adult, Pyelonephritis, Adult. Prescriptions for Tylenol-Codeine #3 300-30 mg Oral Tablet - take 2 tablets by ORAL route every 6 hours As needed; 20 tablet, Zofran 4 mg Oral Tablet - take 1 tablet by ORAL route every 12 hours As needed; 20 tablet, Bactrim DS 800-160 mg Oral Tablet - take 1 tablet by ORAL route every 12 hours for 7 days; 14 tablet. and Forms are Medication Reconciliation Form, Thank You Letter, Antibiotic Education, Prescription Opioid Use. Follow up: Private Physician; When: 2 - 3 days; Reason: Recheck today's complaints. Problem is new. Symptoms have improved. cp
== END 2018-03-14 17:23 | disposition home or self-care (01) ==
LOC: ER 13:26
DX: N39.0 Urinary tract infection, site not specified (principal); N12 Tubulo-interstitial nephritis, not specified as acute or chronic; F17.210 Nicotine dependence, cigarettes, uncomplicated; Z90.49 Acquired absence of other specified parts of digestive tract; Z95.5 Presence of coronary angioplasty implant and graft
CPT/HCPCS: 36415; 74176; 76377; 76705; 80048; 80076; 81003; 81015; 81025; 83690; 85025; 87077; 87086; 87088; 87186; 96374; 96375; 99284; J0696; J2405; J3010; J7030

== ENCOUNTER 2018-03-25 17:06 | Emergency (ER) | payer SELFPAY ==
--- OUTSIDE RECORDS SUMMARY | 2018-03-25 17:31 | XMS REPORT | Clinical Summary ---
:1975 Author Organization [facility] Address [address] [place] [address] Care Team Providers Name Role Phone Unavailable [...] vomiting with nausea, unspecified vomiting type after 03/24/2017 Social History Tobacco Use Types Packs/Day Years [...] procedure are in the results section. after 03/24/2017 Results TROPONIN I POC (10/26/2017 1:54 AM CDT)Only the most recent of2 resultswithin the time period is included. Troponin POC 0.00 0.00 - 0.08 ng/mL [facility] 1 Performing Organization Address City/State/Zipcode Phone Number MISYS [facility] 1 12 LEAD EKG (10/26/2017 12:02 AM CDT) 12 LEAD EKG FOR P [facility] SMS Test Date:2017-10-26 Pat Name: DG SALDAÑA Department: : Gender: F Button Cutter: :1975 Requested By: Order Number:Reading : Minh Pratt Measurements IntervalsAxis Rate: 89 P: 58 OK: 133QRS: 48 QRSD: 95 T: 66 QT: 340 QTc:414 Interpretive Statements SINUS RHYTHM Electronically Signed On 10-26-17 17:41:15 CDT by Minh Pratt Performing Organization Address [facility] Phone Number [facility] XRAY CHEST 1 VIEW (10/25/2017 11:58 PM CDT) Impressions Performed At IMPRESSION: [facility] Subacute left posterior third through sixth rib fractures. Otherwise, no acute cardiopulmonary disease. Signed By: Kenrick French MD, 10/26/2017 12:50 AM Narrative Performed At [facility] EXAM: XR CHEST 1 VIEW DATE:10/26/2017 [...] MD, 10/26/2017 12:50 AM Performing Organization Address [facility] Phone Number [facility] BMP POC (10/25/2017 11:22 PM CDT) [...] 1 Creatinine POC 0.7 0.6 - 1.3 [facility] mg/dL 1 Calcium Ionized POC 1.18 1.15 - 1.29 [facility] mmol/L 1 Hemoglobin POC 15.3 12.0 - 16.0 [facility] g/dL 1 Hematocrit POC 45.0 37.0 - 47.0 % [facility] 1 GFR, Estimated >60 mL/min/1.73 [facility] m2 1 GFR, Estim, Afr-Am >60 mL/min/1.73 [facility] m2 1 Performing Organization Address [facility] Phone Number MISYS [facility] 1 PT/INR/PTT (10/25/2017 10:58 PM CDT) PT 11.8 11.8 - 15.0 [facility] Seconds 2 INR 0.9 [facility] 2 SUGGESTED THERAPEUTIC RANGES: INR 2.0-3.0 for MODERATE INTENSITY ANTICOAGULATION INR 2.5-3.5 for HIGH INTENSITY ANTICOAGULATION PTT 29.3 23.6 - 36.4 [facility] Seconds 2 Specimen Blood Performing Organization Address [facility] Phone Number [facility] 2 LIVER PROFILE (10/25/2017 10:58 PM CDT) T Protein 7.7 6.4 - 8.2 g/dL [facility] 2 Albumin 3.5 3.4 - 5.0 g/dL [facility] 2 T Bilirubin 0.4 0.2 - 1.0 mg/dL [facility] 2 Alk Phos 163 (H) 45 - 117 U/L [facility] 2 AST 151 (H) 15 - 37 U/L [facility] 2 ALT 201 (H) 12 - 78 U/L [facility] 2 D Bilirubin 0.1 0.0 - 0.2 mg/dL [facility] 2 Specimen Blood Performing Organization Address [facility] Phone Number [facility] 2 LIPASE (10/25/2017 10:58 PM CDT) Lipase 334 73 - 393 U/L [facility] Specimen Blood Performing Organization Address City/State/Zipcode Phone Number MISYS [facility] 2 CBC/DIFF (10/25/2017 10:58 PM CDT) WBC 11.5 (H) 4.5 - 11.0 K/uL [facility] 2 RBC 4.74 4.20 - 5.40 [facility] M/uL Hemoglobin 14.3 12.0 - 16.0 [facility] g/dL Hematocrit 43.3 37.0 - 47.0 % [facility] 2 MCV 91 82 - 92 fL [facility] 2 MCH 30.2 27.0 - 32.0 pg [facility] 2 MCHC 33.0 32.0 - 36.0 [facility] g/dL RDW 52.3 (H) 36.4 - 46.3 fL [facility] 2 Platelet 211 150 - 400 K/uL [facility] 2 Mean Platelet Volume 11.6 9.4 - 12.4 fL [facility] 2 Percent NRBC 0.0 [facility] 2 Absolute NRBC 0.00 [facility] [...] 2 K/uL Specimen Blood Performing Organization Address [facility] Phone Number MISYS [facility] 2 12 LEAD EKG (10/25/2017 9:49 PM CDT) 12 LEAD EKG FOR [facility] SMS Test Date:2017-10-25 Pat Name: DG SALDAÑA Department: : Gender: F Button Cutter: [id number] :1975 Requested By: Order Number:Reading MD: Minh Pratt Measurements IntervalsAxis Rate: 106P: 61 OK: 159QRS: 60 QRSD: 93 T: 66 QT: 312 QTc:415 Interpretive Statements SINUS TACHYCARDIA MODERATE ST DEPRESSION NON SPECIFIC T WAVE ABNORMALITY Electronically Signed On 10-26-17 17:41:13 CDT by Minh Pratt Performing Organization Address [facility] Phone Number [facility] after 03/24/2017 Insurance Payer Benefit Plan / Subscriber ID Effective Dates Phone Address Type Group [employer]AN [employer] PLAN 1 xxxxxxxxx 2017-[id number] [address] (Home) [place] [address]
--- OUTSIDE RECORDS SUMMARY | 2018-03-25 17:31 | XMS REPORT | Clinical Summary ---
:1975 Author Organization [facility] Address [address] [place] [address] Care Team Providers Name Role Phone Pcp, [...] chronic pain 10/27/2017 Coronary artery disease involving [place] coronary artery of [place] heart 10/26 without angina pectoris Peripheral vascular disease 10/26/2017 Chronic hepatitis C without hepatic coma 10/26/2017 Epigastric pain 10/26/2017 Transaminitis 10/26/2017 Epigastric abdominal pain 10/26/2017 Encounters Date Type Specialty Care Team Description 10/26/2017 - Hospital Encounter General Internal MilagrosIsela lynn Chronic hepatitis C without hepatic coma (HCC); 10/27/2017 Medicine Nusrat Mcclain, Coronary artery disease involving [place] coronary artery of [place] river heart without angina pectoris; Epigastric abdominal pain; Bridgett, Peripheral vascular disease (HCC); Jaimie Transaminitis MD [address], Kaia Carnes MD after 03/24/2017 Social History Tobacco Use Types [...] Not on file Implants Implanted Type Area Thread Grinder Device Shelf Model / Serial / Identifier Expiration Lot Date Dbx Melody,1cc Aseptic - [id number] Bone Left: MUSCULOSKELETAL [id number] / Implanted: Qty: 1 on 08/08/2013 by Mike Moore MD Spine TRANSPLANT [id number] / Cervical Screw,Zephir Self Drilling 4.0x13mm - [id number] Spine Left: [employer] SPINAL [id number] / Implanted: Qty: 1 on 08/08/2013 by Mike Moore MD [employer]ine [employer] BIOLOG[employer] / Cervical Screw,Zephir Selfdrill 3.5x13mm - [id number] Spine Left: [employer] SPINAL [id number] / Implanted: Qty: 4 on 08/08/2013 by Mike Moore MD Spine AND BIOLOGICS / Cervical Spacer,[employer] Lateral Ports [id number] - [id number] Spine Left: [employer] SPINAL 12/18/2020 [id number] / Implanted: Qty: 1 on 08/08/2013 by Mike Moore MD Spine AND BIOLOGICS / Cervical [id number] Spacer,[employer] Lateral Ports [id number] - [id number] Spine Left: [employer] SPINAL 04/25/2021 [id number] / Implanted: Qty: 1 on 08/08/2013 by Mike Moore MD Spine [employer] BIOLOG[employer] / Cervical [id number] Plate,Zephir Ti 42.5mm - [id number] Spine Left: [employer] SPINAL [id number] / Implanted: Qty: 1 on 08/08/2013 by [...] in the results section. after 03/24/2017 Results EKG-SCANNED (10/28/2017 9:00 AM CDT) Narrative Performed At RHYTHM STRIP - SCAN (10/28/2017 9:00 AM CDT) Narrative Performed At ECHOCARDIOGRAM REPORT - SCAN (10/27/2017 11:00 AM CDT) Narrative Performed At 2D Echo W/Doppler(CW/PW/Color) (10/27/2017 7:39 AM CDT) Ejection Fraction [facility] Narrative Performed At Transthoracic Echocardiography Report (TTE) [facility] Demographics Patient NameSMITH, JENNIFERDate of Study10/27/2017 MANPREET Gender Female Visit [id number] Race Unknown [id number] Number Date of 1975 Charlie Agustin MD Physician Age 42 year(s) SonographerDeyvi Zaragoza Helicopter Officer Ankit Chang MD Physician Procedure Type of [...] Study 10/27/2017 MANPREET Gender Female Visit Number [id number] Race Unknown Room Number 725 Number Date of 1975 Referring Kaia Agustin MD Physician Age 42 year(s) Aerologist Deyvi Zaragoza Helicopter Officer Ankit Robb Interpreting Franki Chang MD Physician [...] City/State/Zipcode Phone Number [facility] Hepatic function panel (10/27/2017 3:33 AM CDT)Only the most recent of2 resultswithin the time period is included. Protein, Total 6.7Comment: Specimen 6.0 - 8.3 gm/dL [facility] hemolyzed [facility] Albumin 3.4 (L)Comment: Specimen 3.5 - 5.0 g/dL [facility] slightly hemolyzed [facility] Total Bilirubin 0.3Comment: Specimen 0.2 - 1.2 mg/dL [facility] Bilirubin, Direct 0.1Comment: Specimen 0.1 - 0.5 mg/dL [facility] hemolyzed [facility] Alkaline Phosphatase 126 40 - 150 U/L [facility] AST 101 (H)Comment: Specimen 5 - 34 U/L [facility] hemolyzed [facility] ALT 142 (H)Comment: Specimen 6 - 55 U/L [facility] hemolyzed [facility] Specimen Blood - Arm, Left Performing Organization Address City/[facility] Phone Number [address] [address] [phone] CENTER Troponin I (10/26/2017 8:14 PM CDT)Only the most recent of2 resultswithin the time period is included. Troponin I <0.01 0.00 - 0.03 ng/mL [facility] Specimen Blood - Arm, Left Narrative Performed At [facility] Troponin I (TnI) levels must be interpreted [...] disease, and persistent tachyarrhythmia. Performing Organization Address City/State/[facility] Phone Number [address] abdomen/pelvis with IV contrast (10/26/2017 3:47 PM CDT) Narrative Performed At FINAL REPORT GE [facility] INDICATION: 42-year-old female with epigastric abdominal pain. [...] MD Report Verified Date/Time:10/26/2017 16:46:44 Reading Location: [facility] Diagnostic Imaging Reading Room - [place] [address] Procedure Note Interface, External Ris In - [...] Report Verified Date/Time: 10/26/2017 16:46:44 Reading Location: [facility] Diagnostic Imaging Reading Room - [place] [address] Performing Organization Address City/State/Zipcode Phone Number GE RIS CBC with platelet count + automated diff (10/26/2017 8:09 AM CDT) WBC 8.8 3.5 - 10.5 K/L [facility] RBC 4.33 3.93 - 5.22 M/L [facility] Hemoglobin 13.0 11.2 - 15.7 GM/DL [facility] Hematocrit 39.9 34.1 - 44.9 % [facility] MCV 92.1 79.4 - 94.8 fL [facility] MCH 30.0 25.6 - 32.2 pg [facility] MCHC 32.6 32.2 - 35.5 GM/DL [facility] RDW 15.8 (H) 11.7 - 14.4 % [facility] Platelets 188 150 - 450 K/CU MM [facility] MPV 10.8 9.4 - 12.3 fL [facility] nRBC 0 0 - 0 /100 WBC [facility] % Neutros 48 % [facility] % Lymphs 40 % [facility] % Monos 9 % [facility] % Eos 2 % [facility] % Baso 0 % [facility] # Neutros 4.22 1.56 - 6.13 K/L [facility] # Lymphs 3.56 1.18 - 3.74 K/L [facility] # Monos 0.83 (H) 0.24 - 0.36 K/L [facility] # Eos 0.16 0.04 - 0.36 K/L [facility] # Baso 0.03 0.01 - 0.08 K/L [facility] Immature Granulocytes-Relative 0 0 - 1 % [facility] Specimen Blood - Arm, Right Performing Organization Address City/[facility] Phone Number [address] [address] [phone] [facility] Hepatitis panel, acute (10/26/2017 8:09 AM CDT) Hep A IgM HEPATITIS A TEST NEGATIVE Nonreactive [facility] Hep B C IgM NON-REACTIVE Nonreactive [facility] Hepatitis C Ab Reactive (A) Nonreactive [facility] hepatitis B Surface Ag NON-REACTIVE Nonreactive [facility] Specimen Blood - Arm, Right Performing Organization Address [facility]/Zipcode Phone Number [address] [address] CENTER Magnesium (10/26/2017 8:09 AM CDT) Magnesium 1.9 1.6 - 2.6 mg/dL [facility] Specimen Blood - Arm, Right Performing Organization Address [facility] Phone Number [address] [address] [phone] CENTER Lipase (10/26/2017 8:09 AM CDT) Lipase 73 8 - 78 U/L [facility] Specimen Blood - Arm, Right Performing Organization Address [facility] Phone Number [address] [address] [facility] Basic metabolic panel (10/26/2017 8:09 AM CDT) Sodium 138 136 - 145 meq/L [facility] Potassium 3.5 3.5 - 5.1 meq/L [facility] Chloride 105 98 - 107 meq/L [facility] CO2 25 22 - 29 meq/L [facility] BUN 7 7 - 21 mg/dL [facility] Creatinine 0.76 0.57 - 1.25 mg/dL [facility] Glucose 100 70 - 105 mg/dL [facility] Calcium 9.1 8.4 - 10.2 mg/dL [facility] EGFR 83Comment: ESTIMATED GFR IS mL/min/1.73 sq m [facility] NOT ACCURATE CREATININE [facility] CLEARANCE IN PREDICTING GLOMERULAR FILTRATION RATE. ESTIMATED GFR IS NOT APPLICABLE FOR DIALYSIS PATIENTS. Specimen Blood - Arm, Right Performing Organization Address [facility] Phone Number [address] [address] [place] ECG 12 lead (10/26/2017 6:55 AM CDT) Narrative Performed At Ventricular Rate 64 BPM GE MUSE Atrial Rate 64 BPM P-R Interval 148 ms QRS Duration 90 ms Q-T Interval 412 ms QTC Calculation(Bazett) 425 ms P Williams 56 degrees R Williams 60 degrees T Williams 80 degrees Normal sinus rhythm Normal ECG [...] 412 ms QTC Calculation(Bazett) 425 ms P Williams 56 degrees R Williams 60 degrees T Williams 80 degrees Normal sinus rhythm Normal ECG When compared with ECG of 08-NOV-2008 12:22, Q waves are no longer seen inferior leads Nonspecific T wave abnormality now evident in aVL Confirmed by MD JUAN PABLO, YOHANNES ([id number]) on 10/26/2017 7:52:47 AM Performing Organization Address City/State/Zipcode Phone Number GE MUSE after 03/24/2017 Advance Directives For more information, please contact:[address] [phone] Code Status Date Activated Date Inactivated Comments Full Code 10/26/2017 5:41 AM 10/27/2017 2:54 PM This code status was determined by: Patient Code ONE 08/08/2013 6:59 AM 08/09/2013 1:32 PM All possible means of support including;cardiac massage, mechanical ventilation, and defibrillation will be used to support life.
--- OUTSIDE RECORDS SUMMARY | 2018-03-25 17:32 | XMS REPORT ---
:1975 [facility] Address [address] [place] [address] Care Team Providers Name Role Phone LOVE [...] Clinicians Facility Department ID 2017-10-25 2017-10-25 Emergency [facility] [id number] 23:30:27 23:30:27 2017-10-25 2017-10-25 Emergency [facility] [id number] 21:51:50 21:51:50 2016-07-14 2016-07-14 Emergency [facility] [id number] 14:16:54 14:16:54 2016-07-14 2016-07-14 Emergency [facility] [id number] 11:09:42 11:09:42 Results Test Description Test Time Test Comments Text Results Atomic Results Result Comments HEPATIC FUNCTION PANEL 2017-10-27 04:12:00 Test Item Value Reference Range Comments TOTAL PROTEIN (BEAKER) (test alhi=265) 6.7 gm/dL 6.0-8.3 Specimen slightly hemolyzed ALBUMIN (BEAKER) (test kgzx=3825) 3.4 g/dL 3.5-5.0 Specimen slightly hemolyzed BILIRUBIN TOTAL (BEAKER) (test 0.3 mg/dL 0.2-1.2 Specimen slightly hemolyzed tyer=071) BILIRUBIN DIRECT (BEAKER) (test 0.1 mg/dL 0.1-0.5 Specimen slightly hemolyzed hjwu=044) ALKALINE PHOSPHATASE (BEAKER) (test 126 U/L 40-150 gntq=926) AST (SGOT) (BEAKER) (test jwyi=819) 101 U/L 5-34 Specimen slightly hemolyzed ALT (SGPT) (BEAKER) (test igqw=404) 142 U/L 6-55 Specimen slightly hemolyzed TROPONIN [id number] 20:53:00 Test Item Value Reference Range Comments TROPONIN I (BEAKER) (test hqgy=717) < ng/mL 0.00-0.03 Troponin I (TnI) levels [...] acidosis, acute neurological disease, and persistent tachyarrhythmia.CT, [id number] 16:46:00PO contrastFINAL REPORT INDICATION:42-year-old female with epigastric [...] MDReport Verified Date/Time: 10/26/2017 16:46:44 Reading Location: [facility] Diagnostic Imaging Reading Room - [place] [id number] HEPATITIS PANEL, [id number] 10:50:00 Test Item Value Reference Range Comments HEPATITIS A IGM ANTIBODY (BEAKER) (test Nonreactive Nonreactive zxry=656) HEPATITIS B CORE IGM ANTIBODY (BEAKER) (test Nonreactive Nonreactive wfax=384) HEPATITIS C ANTIBODY (BEAKER) (test dyzl=729) Reactive Nonreactive HEPATITIS B SURFACE ANTIGEN (2) (BEAKER) (test Nonreactive Nonreactive ywfw=4957) TROPONIN [id number] 08:46:00 Test Item Value Reference Range Comments TROPONIN I (BEAKER) (test egyi=937) < ng/mL 0.00-0.03 Troponin I (TnI) levels [...] failure, acidosis, acute neurological disease, and persistent tachyarrhythmia.[id number] 08:38:00 Test Item Value Reference Range Comments MAGNESIUM (BEAKER) (test rgyo=384) 1.9 mg/dL 1.6-2.6 BASIC METABOLIC [id number] 08:38:00 Test Item Value Reference Range Comments SODIUM (BEAKER) (test 138 meq/L 136-145 zqtw=384) POTASSIUM (BEAKER) (test 3.5 meq/L 3.5-5.1 zwjs=726) CHLORIDE (BEAKER) (test 105 meq/L 98-107 bcgz=545) CO2 (BEAKER) (test 25 meq/L 22-29 hhlf=279) BLOOD UREA NITROGEN 7 mg/dL 7-21 (BEAKER) (test pfwz=805) CREATININE (BEAKER) (test 0.76 mg/dL 0.57-1.25 omwb=777) GLUCOSE RANDOM (BEAKER) 100 mg/dL 70-105 (test xokj=889) CALCIUM (BEAKER) (test 9.1 mg/dL 8.4-10.2 iobx=419) EGFR (BEAKER) (test 83 mL/min/1.73 sq m ESTIMATED GFR IS NOT wopp=1834) ACCURATE CREATININE CLEARANCE IN PREDICTING GLOMERULAR FILTRATION RATE. ESTIMATED GFR IS NOT APPLICABLE FOR DIALYSIS PATIENTS. HEPATIC FUNCTION [id number] 08:38:00 Test Item Value Reference Range Comments TOTAL PROTEIN (BEAKER) (test yygr=474) 6.8 gm/dL 6.0-8.3 ALBUMIN (BEAKER) (test jwga=2903) 3.7 g/dL 3.5-5.0 BILIRUBIN TOTAL (BEAKER) (test nxew=459) 0.3 mg/dL 0.2-1.2 BILIRUBIN DIRECT (BEAKER) (test bjdv=413) 0.2 mg/dL 0.1-0.5 ALKALINE PHOSPHATASE (BEAKER) (test zwbx=796) 138 U/L 40-150 AST (SGOT) (BEAKER) (test mhjn=741) 109 U/L 5-34 ALT (SGPT) (BEAKER) (test asgb=478) 154 U/L 6-55 [id number] 08:38:00 Test Item Value Reference Range Comments LIPASE (BEAKER) (test wfaw=830) 73 U/L 8-78 CBC W/PLT COUNT & AUTO [id number] 08:20:00 Test Item Value Reference Range Comments WHITE BLOOD CELL COUNT (BEAKER) (test enkz=026) 8.8 K/ L 3.5-10.5 RED BLOOD CELL COUNT (BEAKER) (test eemp=976) 4.33 M/ L 3.93-5.22 HEMOGLOBIN (BEAKER) (test xhhn=751) 13.0 GM/DL 11.2-15.7 HEMATOCRIT (BEAKER) (test pfor=196) 39.9 % 34.1-44.9 MEAN CORPUSCULAR VOLUME (BEAKER) (test wvvk=544) 92.1 fL 79.4-94.8 MEAN CORPUSCULAR HEMOGLOBIN (BEAKER) (test 30.0 pg 25.6-32.2 onjg=591) MEAN CORPUSCULAR HEMOGLOBIN CONC (BEAKER) (test 32.6 GM/DL 32.2-35.5 nrzl=623) RED CELL DISTRIBUTION WIDTH (BEAKER) (test 15.8 % 11.7-14.4 gfcv=197) PLATELET COUNT (BEAKER) (test omxf=653) 188 K/CU MM 150-450 MEAN PLATELET VOLUME (BEAKER) (test kxlv=637) 10.8 fL 9.4-12.3 NUCLEATED RED BLOOD CELLS (BEAKER) (test 0 /100 WBC 0-0 befj=167) NEUTROPHILS RELATIVE PERCENT (BEAKER) (test 48 % izoo=197) LYMPHOCYTES RELATIVE PERCENT (BEAKER) (test 40 % olrz=970) MONOCYTES RELATIVE PERCENT (BEAKER) (test 9 % cmud=092) EOSINOPHILS RELATIVE PERCENT (BEAKER) (test 2 % jejg=168) BASOPHILS RELATIVE PERCENT (BEAKER) (test 0 % pmqm=477) NEUTROPHILS ABSOLUTE COUNT (BEAKER) (test 4.22 K/ L 1.56-6.13 jqok=979) LYMPHOCYTES ABSOLUTE COUNT (BEAKER) (test 3.56 K/ L 1.18-3.74 cgnj=757) MONOCYTES ABSOLUTE COUNT (BEAKER) (test 0.83 K/ L 0.24-0.36 xsnl=993) EOSINOPHILS ABSOLUTE COUNT (BEAKER) (test 0.16 K/ L 0.04-0.36 gqmv=043) BASOPHILS ABSOLUTE COUNT (BEAKER) (test 0.03 K/ L 0.01-0.08 ujab=348) IMMATURE GRANULOCYTES-RELATIVE PERCENT (BEAKER) 0 % 0-1 (test zxxg=9314)
[2018-03-25 19:09] LABS: Absolute Lymphocytes (CBC) 2.6 K/uL (0.7-4.9); Absolute Monocytes 0.8 K/uL (0.1-1.3); Absolute Neutrophil 4.8 K/uL (1.8-8.0); Basophils % 1.1 % (0-1.3); Eosinophils % 1.4 % (0-4.4); Hematocrit 47.8 % (36.0-45.0); Lymphocytes % 30.7 % (15.3-44.8); MPV 9.1 fL (7.6-11.3); Monocytes % 9.8 % (3.3-12.3)
[2018-03-25] MEDS ORDERED: FENTANYL CITR 100 MCG/2 ML ONE (19:20)
[2018-03-25] MEDS ORDERED: NA CHLORIDE 0.9% 1,000 ML ONE (19:20)
[2018-03-25 19:34] LABS: Albumin 3.7 g/dL (3.4-5.0); Bilirubin Direct 0.1 mg/dL (0-0.2); Bilirubin Total 0.3 mg/dL (0.2-1.0); Potassium 3.8 mmol/L (3.5-5.1); Protein, Total 7.9 g/dL (6.4-8.2)
[2018-03-25 20:10] LABS: Urine Blood TRACE (NEG); Urine Glucose NEGATIVE (NEG); Urine Protein NEGATIVE (NEG); Urine Specific Gravity 1.015 (1.005-1.030); Urine pH 6.5 (5.0-7.0)
[2018-03-25] MEDS ORDERED: PROMETHAZINE 25 MG/ML VIAL ONE (20:11)
[2018-03-25 20:34] LABS: Urine Bacteria <20 /HPF (<20); Urine Culture Reflex Order NOT NEEDED; Urine RBC <5 /HPF (NONE SEEN)
--- NOTE | 2018-03-25 21:22 | RAD REPORT ---
EXAM DESCRIPTION: CT - Abdomen Pelvis W Contrast - 03/25/2018 9:14 pm CLINICAL HISTORY: Abdominal pain, flank pain COMPARISON: None. TECHNIQUE: Biphasic, helical CT imaging of the abdomen and pelvis was performed following 100 ml non -ionic IV contrast. Oral contrast was given. All CT scans are performed using dose optimization technique as appropriate and may include automated exposure control or mA/KV adjustment according to patient size. FINDINGS: No suspicious findings in the lung bases. The liver, spleen, and pancreas show no suspicious findings. Liver is borderline to mildly fatty infi ltrated. Cholecystectomy clips are present. No biliary tree dilatation. Symmetric renal function is seen with no hydronephrosis or suspicious renal mass. No pyelonephritis o r acute parenchymal process. No bladder abnormalities. No adrenal abnormalities. No dilated bowel loops or bowel wall thickening. No free air, free fluid or inflammatory stranding. No hernia, mass or bulky lymphadenopathy. Disc and bony degenerative change present. No acute finding. Vascular calcifications are present. Aor toiliac stenting present. IMPRESSION: Contrast enhanced CT abdomen and pelvis showing no acute finding.
--- NOTE | 2018-03-25 21:47 | ER ---
Nurse's Notes [facility] Name: Alysa Saldaña Age: 43 yrs Sex: Female : 1975 Arrival Date: 03/25/2018 Time: 17:08 Bed 25 Private MD: Diagnosis: Pain in thoracic spine Presentation: 03/25 18:12 Presenting complaint: Patient states: Was seen on the for flank pain, and groin sg pain, bactrim had improved the UTI symptoms but finished the prescription and this morning has had a flare up with the symptoms again. Transition of care: patient was not received from another setting of care. Onset of symptoms was March 25, 2018. Risk Assessment: Do you want to hurt yourself or someone else? Patient reports no desire to harm self or others. Initial Sepsis Screen: Does the patient meet any 2 criteria? HR > 90 bpm. Does the patient have a suspected source of infection? Yes: Dysuria/Frequency/Urgency/UTI. Care prior to arrival: None. 18:12 Method Of Arrival: Ambulatory sg 18:12 Acuity: CHETAN 3 sg MALARIOLOGIST: 18:13 LMP N/A - Irregular menses sg Historical: - Allergies: 18:15 Keflex; sg 18:15 Mobic; sg - PMHx: 18:14 cardiac stents; stents; in each leg; sg - PSHx: 18:14 Cholecystectomy; Appendectomy; Hysterectomy; ; neck surgery; sg - Immunization history:: Adult Immunizations up to date. - Social history:: Smoking status: Patient/guardian denies using tobacco. - Ebola Screening: : Patient negative for fever greater than or equal to 101.5 degrees Fahrenheit, and additional compatible Ebola Virus Disease symptoms Patient denies exposure to infectious person Patient denies travel to an Ebola-affected area in the 21 days before illness onset No symptoms or risks identified at this time. Screenin:17 Abuse screen: Denies threats or abuse. Nutritional screening: No deficits noted. la1 Tuberculosis screening: No symptoms or risk factors identified. Fall Risk None identified. Assessment: 19:16 General: Appears in no apparent distress. Behavior is calm, cooperative. Pain: la1 Complains of pain in back and abdomen. Neuro: Level of Consciousness is awake, alert, obeys commands, Oriented to person, place, time, situation. Cardiovascular: Capillary refill < 3 seconds Patient's skin is warm and dry. Respiratory: Airway is patent Respiratory effort is even, unlabored, Respiratory pattern is regular, symmetrical. GI: Abdomen is round non-distended, Bowel sounds present X 4 quads. : Reports urinary frequency, Denies burning with urination. 20:41 Reassessment: Patient appears in no apparent distress at this time. No changes from la1 previously documented assessment. Patient and/or family updated on plan of care and expected duration. Pain level reassessed. Patient is alert, oriented x 3, equal unlabored respirations, skin warm/dry/pink. Vital Signs: 18:13 BP 151 / 92; Pulse 111; Resp 17; Temp 97.7; Pulse Ox 98% ; Weight 90.72 kg; Height 5 sg ft. 4 in. (162.56 cm); Pain 7/10; 19:32 BP 98 / 66; Pulse 93; Resp 18; Pulse Ox 98% on R/A; la1 19:50 BP 111 / 78; Pulse 92; Resp 16; Pulse Ox 98% on R/A; la1 18:13 Body Mass Index 34.33 (90.72 kg, 162.56 cm) sg ED Course: 17:08 Patient arrived in ED. rg4 18:12 Arm band placed on. sg 18:13 Triage completed. sg 18:23 Humberto Harry, RN is Primary Nurse. la1 18:51 Sarah Palacios FNP-C is PHCP. snw 18:51 Derek Almonte MD is Attending Physician. snw 19:17 Inserted saline lock: 22 gauge in right antecubital area, using aseptic technique. la1 Blood collected. 21:13 CT completed. Patient tolerated procedure well. Patient moved back from CT. kw1 21:14 CT Abd/Pelvis - W/Contrast In Process Unspecified. EDMS 22:02 Patient has correct armband on for positive identification. la1 22:03 No provider procedures requiring assistance completed. IV discontinued, intact, la1 bleeding controlled, No redness/swelling at site. Pressure dressing applied. Administered Medications: 19:16 Drug: NS 0.9% 1000 ml Route: IV; Rate: 125 ml/hr; Site: right antecubital; la1 20:42 Follow up: IV Status: Completed infusion la1 19:16 Drug: fentaNYL (PF) 50 mcg Route: IVP; Site: right antecubital; la1 20:42 Follow up: Response: No adverse reaction; Pain is decreased la1 19:21 Drug: NS 0.9% 1000 ml Route: IV; Rate: 1 bolus; Site: right antecubital; la1 20:42 Follow up: IV Status: Completed infusion la1 20:05 Drug: Phenergan 12.5 mg Route: IVP; Site: right antecubital; la1 20:42 Follow up: Response: No adverse reaction la1 20:05 Drug: fentaNYL (PF) 50 mcg Route: IM; Site: right vastus lateralis; la1 20:42 Follow up: Response: No adverse reaction la1 22:03 Drug: Valium 5 mg Route: PO; la1 22:03 Follow up: Response: No adverse reaction la1 Outcome: 21:46 Discharge ordered by MD. santos 22:03 Discharged to home ambulatory. la1 22:03 Condition: stable 22:03 Discharge instructions given to patient, Instructed on discharge instructions, follow up and referral plans. medication usage, Demonstrated understanding of instructions, follow-up care, medications, Prescriptions given X 1. 22:04 Patient left the ED. la1 Signatures: Dispatcher [employer] EDMS Vinh Carmona RN RN sg Therrien, Shelly, FAMILY DAY CARE PROVIDER-C FAMILY DAY CARE PROVIDER-Humberto Mix RN RN la1 Garcia, Rubi rg4 Yen Bolaños1
--- NOTE | 2018-03-25 21:47 | EDPHYS ---
Physician Documentation [facility] Name: Alysa Saldaña Age: 43 yrs Sex: Female : 1975 Arrival Date: 03/25/2018 Time: 17:08 Bed 25 Private MD: ED Physician Derek Almonte HPI: 03/25 21:29 This 43 yrs old Female presents to ER via Ambulatory with complaints of Back snw Pain, Abdominal Pain. 21:29 The patient presents with pain that is acute, with no known mechanism of injury. The snw symptoms are located in the coccyx area. 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 - Social history:: Smoking status: Patient/guardian denies using tobacco. - Ebola Screening: : Patient negative for fever greater than or equal to 101.5 degrees Fahrenheit, and additional compatible Ebola Virus Disease symptoms Patient denies exposure to infectious person Patient denies travel to an Ebola-affected area in the 21 days before illness onset No symptoms or risks identified at this time. ROS: 21:28 Constitutional: Negative for fever, chills, and weight loss, Eyes: Negative for injury, snw pain, redness, and discharge, ENT: Negative for injury, pain, and discharge, Neck: Negative for injury, pain, and swelling, Cardiovascular: Negative for chest pain, palpitations, and edema, Respiratory: Negative for shortness of breath, cough, wheezing, and pleuritic chest pain, Abdomen/GI: Negative for abdominal pain, nausea, vomiting, diarrhea, and constipation, : Negative for injury, bleeding, discharge, and swelling, MS/Extremity: Negative for injury and deformity, Skin: Negative for injury, rash, and discoloration, Neuro: Negative for headache, weakness, numbness, tingling, and seizure. 21:28 Back: Positive for decreased range of motion, pain at rest, of the mid back area. Exam: 21:26 Constitutional: This is a well developed, well nourished patient who is awake, alert, snw and in no acute distress. Head/Face: Normocephalic, atraumatic. Eyes: Pupils equal round and reactive to light, extra-ocular motions intact. Lids and lashes normal. Conjunctiva and sclera are non-icteric and not injected. Cornea within normal limits. Periorbital areas with no swelling, redness, or edema. ENT: Nares patent. No nasal discharge, no septal abnormalities noted. Tympanic membranes are normal and external auditory canals are clear. Oropharynx with no redness, swelling, or masses, exudates, or evidence of obstruction, uvula midline. Mucous membranes moist. Neck: Trachea midline, no thyromegaly or masses palpated, and no cervical lymphadenopathy. Supple, full range of motion without nuchal rigidity, or vertebral point tenderness. No Meningismus. Chest/axilla: Normal chest wall appearance and motion. Nontender with no deformity. No lesions are appreciated. Cardiovascular: Regular rate and rhythm with a normal S1 and S2. No gallops, murmurs, or rubs. Normal PMI, no JVD. No pulse deficits. Respiratory: Lungs have equal breath sounds bilaterally, clear to auscultation and percussion. No rales, rhonchi or wheezes noted. No increased work of breathing, no retractions or nasal flaring. Abdomen/GI: Soft, non-tender, with normal bowel sounds. No distension or tympany. No guarding or rebound. No evidence of tenderness throughout. Skin: Warm, dry with normal turgor. Normal color with no rashes, no lesions, and no evidence of cellulitis. MS/ Extremity: Pulses equal, no cyanosis. Neurovascular intact. Full, normal range of motion. Neuro: Awake and alert, GCS 15, oriented to person, place, time, and situation. Cranial nerves II-XII grossly intact. Motor strength 5/5 in all extremities. Sensory grossly intact. Cerebellar exam normal. Normal gait. 21:26 Back: pain, that is moderate, of the mid back area, ROM is normal, normal spinal alignment noted, CVA tenderness, that is moderate, is noted bilaterally, muscle spasm, is not present. Vital Signs: 18:13 BP 151 / 92; Pulse 111; Resp 17; Temp 97.7; Pulse Ox 98% ; Weight 90.72 kg; Height 5 sg ft. 4 in. (162.56 cm); Pain 7/10; 19:32 BP 98 / 66; Pulse 93; Resp 18; Pulse Ox 98% on R/A; la1 19:50 BP 111 / 78; Pulse 92; Resp 16; Pulse Ox 98% on R/A; la1 18:13 Body Mass Index 34.33 (90.72 kg, 162.56 cm) sg MDM: 19:09 Patient medically screened. snw 21:29 Data reviewed: vital signs, nurses notes. Data interpreted: Pulse oximetry: on room air snw is 98 %. Interpretation: normal. Counseling: I had a detailed discussion with the patient and/or guardian regarding: the historical points, exam findings, and any diagnostic results supporting the discharge/admit diagnosis, lab results, radiology results, the need for outpatient follow up, for definitive care, to return to the emergency department if symptoms worsen or persist or if there are any questions or concerns that arise at home. Special discussion: Based on the history and exam findings, there is no indication for further emergent testing or inpatient evaluation. I discussed with the patient/guardian the need to see the primary care provider for further evaluation of the symptoms. 03/25 18:54 Order name: [facility]rine Culture [facility] 03/25 18:54 Order name: Urine Microscopic Only; Complete Time: 20:40 [facility] 03/25 18:54 Order name: Basic Metabolic Panel; Complete Time: 19:41 [facility] 03/25 18:54 Order name: CBC with Diff; Complete Time: 19:21 [facility] 03/25 18:54 Order name: Hepatic Function; Complete Time: 19:41 [facility] 03/25 18:54 Order name: Lipase; Complete Time: 19:41 [facility] 03/25 19:11 Order name: Urine Dipstick--Ancillary (enter results); Complete Time: 20:13 03/25 19:11 Order name: Urine --Ancillary (enter results); Complete Time: 20:13 03/25 20:42 Order name: CT Abd/Pelvis - W/Contrast; Complete Time: 21:25 [facility] 03/25 18:54 Order name: Urine Test (obtain specimen); Complete Time: 19:08 [facility] 03/25 18:54 Order name: Urine Dipstick-Ancillary (obtain specimen); Complete Time: 18:55 [facility] 03/25 18:54 Order name: Labs collected and sent; Complete Time: 19:08 snw Administered Medications: 19:16 Drug: NS 0.9% 1000 ml Route: IV; Rate: 125 ml/hr; Site: right antecubital; la1 20:42 Follow up: IV Status: Completed infusion la1 19:16 Drug: fentaNYL (PF) 50 mcg Route: IVP; Site: right antecubital; la1 20:42 Follow up: Response: No adverse reaction; Pain is decreased la1 19:21 Drug: NS 0.9% 1000 ml Route: IV; Rate: 1 bolus; Site: right antecubital; la1 20:42 Follow up: IV Status: Completed infusion la1 20:05 Drug: Phenergan 12.5 mg Route: IVP; Site: right antecubital; la1 20:42 Follow up: Response: No adverse reaction la1 20:05 Drug: fentaNYL (PF) 50 mcg Route: IM; Site: right vastus lateralis; la1 20:42 Follow up: Response: No adverse reaction la1 22:03 Drug: Valium 5 mg Route: PO; la1 22:03 Follow up: Response: No adverse reaction la1 Disposition: 03/26 07:07 Co-signature as Attending Physician, Derek Almonte MD. rn Disposition: 03/25/18 21:46 Discharged to Home. Impression: Pain in thoracic spine. - Condition is Stable. - Discharge Instructions: Back Pain, Adult, Pain Without a Known Cause, Thoracic Strain. - Prescriptions for orphenadrine citrate 100 mg Oral Tablet Sustained Release - take 1 tablet by ORAL route 2 times per day As needed; 20 tablet. - Medication Reconciliation Form, Thank You Letter, Antibiotic Education, Prescription Opioid Use form. - Follow up: Private Physician; When: 2 - 3 days; Reason: Recheck today's complaints, Continuance of care, Re-evaluation by your physician. Follow up: Emergency Department; When: As needed; Reason: Worsening of condition. Signatures: Dispatcher [employer] EDVinh Garcia RN RN sg Sarah Palacios, SHIPBOARD INTELLIGENCE ANALYST-C SHIPBOARD INTELLIGENCE ANALYST-Csnw Derek Almonte MD MD rn Attema, Lee, RN RN la1 Corrections: (The following items were deleted from the chart) 03/25 22:04 21:46 03/25/2018 21:46 Discharged to Home. Impression: Pain in thoracic spine. la1 Condition is Stable. Forms are Medication Reconciliation Form, Thank You Letter, Antibiotic Education, Prescription Opioid Use. Follow up: Private Physician; When: 2 - 3 days; Reason: Recheck today's complaints, Continuance of care, Re-evaluation by your physician. Follow up: Emergency Department; When: As needed; Reason: Worsening of condition. snw
[2018-03-25] MEDS ORDERED: DIAZEPAM 5 MG TABLET ONE (21:59)
== END 2018-03-25 22:04 | disposition home or self-care (01) ==
LOC: ER 17:06
DX: M54.6 Pain in thoracic spine (principal); Z88.1 Allergy status to other antibiotic agents; Z95.818 Presence of other cardiac implants and grafts
CPT/HCPCS: 36415; 74177; 80048; 80076; 81003; 81015; 81025; 83690; 85025; 87086; 87088; 96361; 96372; 96374; 96375; 99284; J2550; J3010; J7030; Q9967

== ENCOUNTER 2019-07-09 20:41 | Emergency (ER) | payer OTHER, SELFPAY ==
--- OUTSIDE RECORDS SUMMARY | 2019-07-09 21:16 | XMS REPORT | Clinical Summary ---
:1975 Author Organization [facility] Address [address] [place] [address] Care Team Providers Name Role Phone Pcp Primary Care Provider Unavailable Allergies Active Allergy Reactions Severity Noted Date Comments Cephalexin Nausea And Vomiting High 05/17/2018 Meloxicam Anaphylaxis High 05/17/2018 Medications Medication Sig Dispensed Refills Start Date End Date Status aspirin 81 MG EC Take 81 mg by 0 Active tablet mouth daily. nitroglycerin 1 pill under 90 tablet 0 05/18/2018 05/18/2019 E xpired (NITROSTAT) 0.4 MG tongue every 5min SL tablet as needed for chest pain.No more than 3 doses in 15min.Call 911 if pain is unrelieved after 1st dose. Active Problems Problem Noted Date CAD S/P percutaneous coronary angioplasty 05/18/2018 Systolic congestive heart failure 05/18/2018 Pain of left lower extremity 05/18/2018 Tobacco abuse 05/18/2018 ACS (acute coronary syndrome) 05/17/2018 Other chronic pain 10/27/2017 Coronary artery disease involving comanche coronary rosy ry of comanche heart 10/26/2017 without angina pectoris PAD (peripheral artery disease) 10/26/2017 Chronic hepatitis C without hepatic coma 10/26/2017 Epigastric pain 10/26/2017 Transaminitis 10/26/2017 Epigastric abdominal pain 10/26/2017 Social History Tobacco Use Types Packs/Day Years Used Date Current Every Day Smoker Smokeless Tobacco: Never Used Tobacco Cessation: Ready to Quit: Yes; C ounseling Given: No Comments: has cut down to 1/2 ppd.states attempting to quit Alcohol Use Drinks/Week oz/Week Comments No Sex Assigned at Date Recorded Not on file Job Start Date Occupation Industry Not on file Not on file Not on file Travel History Travel Start Travel End No recent travel history available. 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 Shelf Model / Serial / Identifier Expiration Lot Date Dbx gema Oliverc Aseptic - [id number] Bone Left: MUS CULOSKELETAL 03/05/2015 [id number] / Implanted: Qty: 1 on 08/08/2013 by Mike Moore MD Spine TRANSPLANT [id number] / Cervical Screw,Zephir Self Drilling 4.0x13mm - [id number] Spine Left: MED TRONIC SPINAL [id number] / Implanted: Qty: 1 on 08/08/2013 by Mike Moore MD Spine [employer] BIOLOG[employer] / Cervical Screw,Zephir Selfdrill 3.5x13mm - [id number] Spine Left: MEDTRON IC SPINAL [id number] / Implanted: Qty: 4 on 08/08/2013 by Mike Moore MD [employer]ine [employer] BIOLOG[employer] / Cervical Spacer,Cornerstone Psr Lateral Ports [id number] - [id number] Spine Left: MEDTRONIC SPINAL 12/18/2020 [id number] / Implanted: Qty: 1 on 08/08/2013 by Mike Moore MD Spine AND BIOLOGICS / Cervical [id number] Spacer,[employer]ner[employer] Psr Lateral Ports [id number] - [id number] Spine Left: MEDTRONIC SPINAL 04/25/2021 [id number] / Implanted: Qty: 1 on 08/08/2013 by Mike Moore MD Spine AND BIOLOGICS / Cervical [id number] Plate,Zephir Ti 42.5mm - [id number] Spine Left: MEDTRONIC SPINAL [id number] / Implanted: Qty: 1 on 08/08/2013 by Mike Moore MD [employer]ine AND BIOLOGICS / Cervical Synergy 2.50mm X 16mm Stents- Left: [place] 12/05/19 [id number] / Implanted: Qty: 1 on 05/17/2018 by Mariam Calhoun MD Coronar Coronary SCIENTIFIC / [id number] Results Not on fileafter 07/08/2018 Insurance Payer Benefit Plan / Group Subscriber ID Type Phone A ddress CIGNA - MGD CARE CIGNA HMO/POS/OPEN ACCESS xxxxxxxxxxx HMO/POS Advance Directives For more information, please contact:[place] [address] [place], [place] [phone] Code Status Date Activated Date Inactivated Comments Full Code 05/17/2018 7:39 AM 05/19/2018 12:20 AM This code status was determined by: Patient Full Code 10/26/2017 5:41 AM 10/27/2017 2:54 PM This code status was determined by: Patient Code ONE 08/08/2013 6:59 AM 08/09/2013 1:32 PM All possib le means of support including;cardia c massage, mechanical ventilation, and defibrillation will be used to suppo rt life.
--- OUTSIDE RECORDS SUMMARY | 2019-07-09 21:16 | XMS REPORT | Clinical Summary ---
:1975 Author Organization [facility] Address [address] [place] [address] Care Team Providers Name Role Phone Unavailable [...] Noted Date Pain of left upper extremity Social History Tobacco Use Types Packs/Day Years Used Date Never Assessed Sex Assigned at Date Recorded Not on file Job Start Date Occupation Industry Not on file Not on file Not on file Travel History Travel Start Travel End No recent travel history available. Last Filed Vital Signs Not on file Plan of Treatment Health Maintenance Due Date Last Done Comments Breast Cancer Scrn (Yearly) 2014 IMM Influenza Seasonal Nov to April (>/= 11/29/2019 19 yrs) Cervical Cancer Scrn (3 Yrs) 10/25/2020 10/25/2017, 018 Results Not on fileafter 07/08/2018
--- OUTSIDE RECORDS SUMMARY | 2019-07-09 21:17 | XMS REPORT ---
:1975 Author Organization [facility] t Address [address] [place] [address] Care Team Providers Name Role Phone SHAYLA HANDLEY Unavailable Unavailable TYRELL COX Unavailable Unavailable Payers Payer Name Policy Type Policy Number Effective Date Expiration D ate Problems This patient has no known problems. Allergies, Adverse Reactions, Alerts Allergy Name Allergy Status Severity Reaction(s) Onset Inactive Treat ing Comments Type Date Date Clinician cephalexin DA Active U 2019-04 00:00:0 0 meloxicam DA Active U 2019-04 00:00:0 0 No Known DA Active U 2017-09 00:00:0 0 Medications This patient has no known medications. Encounters Start End Encounter Admission Attending Care Care Encounter Date/Time Date/Time Type Type Clinicians Facility Department ID 2017-10-25 2017-10-25 Emergency [facility] [id number] 3 23:30:27 23:30:27 2017-10-25 2017-10-25 Emergency [facility] [id number] 21:51:50 21:51:50 2016-07-14 2016-07-14 Emergency [facility] [id number] 14:16:54 14:16:54 2016-07-14 2016-07-14 Emergency [facility] [id number] 11:09:42 11:09:42 Results Test Description Test Time Test Comments Text Results Atomic Results Result Comments B-TYPE NATRIURETIC PEPTIDE 2019-05-07 09:20:00 Test Item Value Reference Range Comments B-TYPE NATRIURETIC PEPTIDE (test code = BNP) 20.9 PG/ML 0-1 00 COMPREHENSIVE METABOLIC [id number] 08:10:00 Test Item Value Reference Range Comments SODIUM (test code = NA) 141 mEq/L 134-147 POTASSIUM (test code = K) 3.6 mEq/L 3.4-5.0 CHLORIDE (test code = CL) 108 mEq/L 100-108 CARBON DIOXIDE (test code = 26 mEq/L 21-33 CO2) ANION GAP (test code = GAP) 11 0-20 GLUCOSE (test code = GLU) 101 mg/dL 70-110 BLOOD UREA NITROGEN (test code 14 mg/dL 7-18 = BUN) GLOMERULAR FILTRATION RATE 90.5 95-105 Units of measure = (test code = GFR) ml/min/1.73 m2 CREATININE (test code = CREAT) 0.7 mg/dL 0.6-1.3 TOTAL PROTEIN (test code = 6.9 g/dL 6.4-8.2 PROT) ALBUMIN (test code = ALB) 3.20 g/dL 3.4-5.0 CALCIUM (test code = CA) 8.4 mg/dL 8.0-10.5 BILIRUBIN TOTAL (test code = 0.2 MG/DL <1.5 BILT) SGOT/AST (test code = AST) 18 IUnit/L 15-37 SGPT/ALT (test code = ALT) 27 IUnit/L 15-65 ALKALINE PHOSPHATASE TOTAL 87 IUnit/L 20-125 (test code = ALKP) LIPID PROFILE (CORONARY RISK)2019-05-07 08:10:00 Test Item Value Reference Range Comments TRIGLYCERIDES (test code = 176 mg/dL 40-150 TRIG) CHOLESTEROL (test code = 172 mg/dL <200 CHOL) CHOLESTEROL/HDL RATIO (test 4.78 RATIO 3.27-4.44 RISK ASSOCIATED WITH CHOL/HDL code = CHOLHDL) RATIOS: RISK MALE FEMALE1/2 AVERAGE 3.43 3.27 AVERAGE 4.97 4.442X AVERAGE 9.55 7.053X AVERAGE 23.39 11.04 NOTE THAT THE REFERENCE VALUE IS RELATED TO RISK LEVELS RECOMMENDED B Y THE NATL.HEART, LUNG , AND BLOOD INST. HDL CHOLESTEROL (test code = 36.0 mg/dL 39-96 HDL) LIPOPROTEIN LDL (test code = 107 mg/dL 0-100 <10 0 [id number] NEAR LDL) OPTIMAL/ABOVE OP [id number] 9 HIGH>SK=810 VERY HIGH*Guide lines provided by the National Cholesterol EducationProgram Adult Treatment Panel III [id number] 08:10:00 Test Item Value Reference Range Comments MAGNESIUM (test code = MAG) 2.00 mg/dL 1.8-2.4 CBC W/AUTO [id number] 06:51:00 Test Item Value Reference Range Comments WHITE BLOOD CELL (test code = WBC) 8.28 x10 3/uL 4.5-11.0 RED BLOOD CELL (test code = RBC) 4.00 x10 6/uL 3.54-5.02 HEMOGLOBIN (test code = HGB) 13.0 g/dL 11.0-15.0 HEMATOCRIT (test code = HCT) 39.8 % 33.0-45.0 MEAN CELL VOLUME (test code = MCV) 99.5 fL 81.0-99.0 MEAN CELL HGB (test code = MCH) 32.5 pg 27.0-33.0 MEAN CELL HGB CONCETRATION (test code = MCHC) 32.7 g/dL 33 .0-37.0 RED CELL DISTRIBUTION WIDTH CV (test code = 13.2 % 11.5 -14.5 RDW) RED CELL DISTRIBUTION WIDTH SD (test code = 48.9 fL 37.0 -54.0 RDW-SD) PLATELET COUNT (test code = PLT) 221 x10 3/uL 150-400 MEAN PLATELET VOLUME (test code = MPV) 11.1 fL 7.0-9.0 NEUTROPHIL % (test code = NT%) 56.5 % 56.0-77.0 IMMATURE GRANULOCYTE % (test code = IG%) 0.2 % 0.0-2.0 LYMPHOCYTE % (test code = LY%) 31.0 % 14.0-32.0 MONOCYTE % (test code = MO%) 8.9 % 4.8-9.0 EOSINOPHIL % (test code = EO%) 2.7 % 0.3-3.7 BASOPHIL % (test code = BA%) 0.7 % 0.0-2.0 NUCLEATED RBC % (test code = NRBC%) 0.0 % 0-0 NEUTROPHIL # (test code = NT#) 4.67 x10 3/uL 2.0-7.6 IMMATURE GRANULOCYTE # (test code = IG#) 0.02 x10 3/uL 0.00-0. 03 LYMPHOCYTE # (test code = LY#) 2.57 x10 3/uL 1.0-3.8 MONOCYTE # (test code = MO#) 0.74 x10 3/uL 0.1-0.8 EOSINOPHIL # (test code = EO#) 0.22 x10 3/uL 0.0-0.2 BASOPHIL # (test code = BA#) 0.06 x10 3/uL 0.0-0.2 NUCLEATED RBC # (test code = NRBC#) 0.00 x10 3/uL 0.0-0.1 MANUAL DIFF REQUIRED (test code = MDIFF) NO [id number] 21:46:00 Test Item Value Reference Range Comments TROPONIN-I (test < 0.015 ng/mL 0.000-0.045 Negative: <= 0.045 code = TROPI) Positive: >= 0.046 Correlation with serial results, other cardiac ma rkers andclinical findings is nece ssary to determine the clinicalsign ificance of this result. Results using different methodologies sh ould not be comparedto one a nother as quantitative res ults may vary by method. COMMENTS: 3 troponins total (including troponin done in ED)TSH REFLEX TO FT4 2019-05-06 19:12:00 Test Item Value Reference Range Comments TSH REFLEX TO FT4 (test code = TSHREFLEX) 2.77 IU/mL 0.42-5 .47 [id number] 19:12:00 Test Item Value Reference Range Comments TROPONIN-I (test < 0.015 ng/mL 0.000-0.045 Negative: <= 0.045 code = TROPI) Positive: >= 0.046 Correlation with serial results, other cardiac ma rkers andclinical findings is nece ssary to determine the clinicalsign ificance of this result. Results using different methodologies sh ould not be comparedto one a nother as quantitative res ults may vary by method. TSH REFLEX TO [id number] 19:10:00 Test Item Value Reference Range Comments TSH REFLEX TO FT4 (test code = TSHREFLEX) IU/mL 0.42-5 .47 [id number] 19:10:00 Test Item Value Reference Range Comments TROPONIN-I (test < 0.015 ng/mL 0.000-0.045 Negative: <= 0.045 code = TROPI) Positive: >= 0.046 Correlation with serial results, other cardiac ma rkers andclinical findings is nece ssary to determine the clinicalsign ificance of this result. Results using different methodologies sh ould not be comparedto one a nother as quantitative res ults may vary by method. HGBA1C%2019-05-06 18:49:00 Test Item Value Reference Range Comments HGBA1C% (test code = HGBA1C%) 5.5 %A1C 4.8-6.0 PROTHROMBIN [id number] 15:46:00 Test Item Value Reference Range Comments PROTHROMBIN TIME PATIENT 9.4 SECONDS 9.3-12.9 (test code = PTP) INTERNATIONAL NORMAL RATIO 0.9 0.8-1.2 TARGET INR BY (test code = INR) INDICATION I ndication INR1. Prophylaxi s of venous thrombosis 2.0 - 3.0 (orthopedi c surgery), Prophylaxis of venous thrombosis (othe r than high-risk surg tye), Treatment of Shreya p Vein Thrombosis/Pulmo nary Embolism, Prevention of systemic embolism - Tissu e heart valves, Acute Myocardial Infarction (to p revent systemic embolis m), Valvular heart disease, Atrial Fibrillation, Bi leaflet mechanical roque ve in aortic position.2. Mech anical prosthetic valve s (high risk), 2.5 - 3.5 P resence of Lupus Anticoagul ant or Antiphospholipid Antibodies, Prevention of systemic embolism - Acute Myocardial Infarction (to prevent recurrent infarc t). BASIC METABOLIC [id number] 15:34:00 Test Item Value Reference Range Comments SODIUM (test code = NA) 140 mEq/L 134-147 POTASSIUM (test code = K) 3.6 mEq/L 3.4-5.0 CHLORIDE (test code = CL) 108 mEq/L 100-108 CARBON DIOXIDE (test code = 28 mEq/L 21-33 CO2) ANION GAP (test code = GAP) 8 0-20 GLUCOSE (test code = GLU) 90 mg/dL 70-110 BLOOD UREA NITROGEN (test code 12 mg/dL 7-18 = BUN) GLOMERULAR FILTRATION RATE 67.7 95-105 Units of measure = (test code = GFR) ml/min/1.73 m2 CREATININE (test code = CREAT) 0.9 mg/dL 0.6-1.3 CALCIUM (test code = CA) 8.8 mg/dL 8.0-10.5 HEPATIC FUNCTION [id number] 15:34:00 Test Item Value Reference Range Comments TOTAL PROTEIN (test code = PROT) 7.1 g/dL 6.4-8.2 ALBUMIN (test code = ALB) 3.40 g/dL 3.4-5.0 BILIRUBIN TOTAL (test code = BILT) 0.2 MG/DL <1.5 BILIRUBIN DIRECT (test code = BILD) < 0.10 MG/DL 0.0-0.30 BILIRUBIN INDIRECT (test code = BILIND) 0.10 MG/DL SGOT/AST (test code = AST) 18 IUnit/L 15-37 SGPT/ALT (test code = ALT) 29 IUnit/L 15-65 ALKALINE PHOSPHATASE TOTAL (test code = ALKP) 91 IUnit/L 20 -125 [id number] 15:34:00 Test Item Value Reference Range Comments LIPASE (test code = LIP) 208 IUnit/L 73-393 - XR CHEST 1 [id number] 15:25:00 FAX: Redd Mack MD [phone] [place]: St: REG Name: DG PATEL [facility] : 1975 Age/S: 44/F [address] [place] [address] Unit#: [id number] Loc: [place] [address] Phys: Redd Mack MD Acct: [id number] Dis Date: Status: REG ER PHONE #: [phone] Exam Date: 05/06/2019 0050 FAX #: [phone] Reason: Chest Pain EXAMS: CPT CODE: [id number] XR CHEST 1 V [id number] CHEST RADIOGRAPH ONE VIEW 05/06/2019 AT 1511 HOURS. CLINICAL HISTORY: Chest pain. COMPARISON STUDIES: Chest one view 08/03/2017. FINDINGS: One view of the chest was obtained. Slightly magnified cardiac silhouette in the AP projection. No pulmonary edema or consolidation. No pleural effusion or pneumothorax. No pneumomediastinum. Prior C5-C6 cervical fusion with interbody cage insertion. Probable bilateral carotid bulb calcification noted incidentally. No destructive bone lesions. IMPRESSION: 1. No pulmonary edema or consolidation. 2. Slightly magnified cardiac silhouette in the AP projection. 3. Prior cervical spine fusion. SL: ER-H at 1525 Reported and signed by: Bertrand Webster M.D. CC: Redd Mack MD Technologist: Grecia Morris RT(R) Trnscrd Date/Time/By: 05/06/2019 (1525) : By: [email or web address] Orig Print D/T: S: 05/06/2019 (6468) PAGE 1 Signed ReportBASIC METABOLIC [id number] 15:24:00 Test Item Value Reference Range Comments SODIUM (test code = NA) 140 mEq/L 134-147 POTASSIUM (test code = K) 3.6 mEq/L 3.4-5.0 CHLORIDE (test code = CL) 108 mEq/L 100-108 CARBON DIOXIDE (test code = CO2) 28 mEq/L 21-33 ANION GAP (test code = GAP) 8 0-20 GLUCOSE (test code = GLU) 90 mg/dL 70-110 BLOOD UREA NITROGEN (test code = BUN) 12 mg/dL 7-18 GLOMERULAR FILTRATION RATE (test code = GFR) 95- 105 CREATININE (test code = CREAT) mg/dL 0.6-1.3 CALCIUM (test code = CA) 8.8 mg/dL 8.0-10.5 HEPATIC FUNCTION [id number] 15:24:00 Test Item Value Reference Range Comments TOTAL PROTEIN (test code = PROT) g/dL 6.4-8.2 ALBUMIN (test code = ALB) g/dL 3.4-5.0 BILIRUBIN TOTAL (test code = BILT) MG/DL <1.5 BILIRUBIN DIRECT (test code = BILD) MG/DL 0.0-0.30 SGOT/AST (test code = AST) IUnit/L 15-37 SGPT/ALT (test code = ALT) IUnit/L 15-65 ALKALINE PHOSPHATASE TOTAL (test code = ALKP) IUnit/L 20 -125 [id number] 15:24:00 Test Item Value Reference Range Comments LIPASE (test code = LIP) 208 IUnit/L 73-393 CBC W/AUTO [id number] 15:17:00 Test Item Value Reference Range Comments WHITE BLOOD CELL (test code = WBC) 9.01 x10 3/uL 4.5-11.0 RED BLOOD CELL (test code = RBC) 4.28 x10 6/uL 3.54-5.02 HEMOGLOBIN (test code = HGB) 13.9 g/dL 11.0-15.0 HEMATOCRIT (test code = HCT) 41.8 % 33.0-45.0 MEAN CELL VOLUME (test code = MCV) 97.7 fL 81.0-99.0 MEAN CELL HGB (test code = MCH) 32.5 pg 27.0-33.0 MEAN CELL HGB CONCETRATION (test code = MCHC) 33.3 g/dL 33 .0-37.0 RED CELL DISTRIBUTION WIDTH CV (test code = 13.3 % 11.5 -14.5 RDW) RED CELL DISTRIBUTION WIDTH SD (test code = 47.9 fL 37.0 -54.0 RDW-SD) PLATELET COUNT (test code = PLT) 232 x10 3/uL 150-400 MEAN PLATELET VOLUME (test code = MPV) 10.7 fL 7.0-9.0 NEUTROPHIL % (test code = NT%) 66.8 % 56.0-77.0 IMMATURE GRANULOCYTE % (test code = IG%) 0.2 % 0.0-2.0 LYMPHOCYTE % (test code = LY%) 23.0 % 14.0-32.0 MONOCYTE % (test code = MO%) 8.0 % 4.8-9.0 EOSINOPHIL % (test code = EO%) 1.4 % 0.3-3.7 BASOPHIL % (test code = BA%) 0.6 % 0.0-2.0 NUCLEATED RBC % (test code = NRBC%) 0.0 % 0-0 NEUTROPHIL # (test code = NT#) 6.02 x10 3/uL 2.0-7.6 IMMATURE GRANULOCYTE # (test code = IG#) 0.02 x10 3/uL 0.00-0. 03 LYMPHOCYTE # (test code = LY#) 2.07 x10 3/uL 1.0-3.8 MONOCYTE # (test code = MO#) 0.72 x10 3/uL 0.1-0.8 EOSINOPHIL # (test code = EO#) 0.13 x10 3/uL 0.0-0.2 BASOPHIL # (test code = BA#) 0.05 x10 3/uL 0.0-0.2 NUCLEATED RBC # (test code = NRBC#) 0.00 x10 3/uL 0.0-0.1 MANUAL DIFF REQUIRED (test code = MDIFF) NO TROPONIN-I [id number] 14:57:00 Test Item Value Reference Range Comments TROPONIN-I RAPID (test 0.00 ng/mL 0.00-0.08 Performed by certified silk winding machine operator code = TROPIRAP) at [facility] Negative: <= 0.08 Positive: >= 0.09An elevated troponi n value alone is not sufficient t odiagnose a myocardial infar ction. Rather, the patient scli nical presentation (hi story, physical exam) and ECGsho uld be used in conjunction with troponin in thediagnostic ev aluation of suspected myocar dial infarction. Aserial sampling protocol is recommended to f acilitate the identification o f temporal changes in tropo mike levels characteristic o f SC. HEMOGLOBIN [id number] 10:17:00 Test Item Value Reference Range Comments HEMOGLOBIN A1C (BEAKER) (test code = 368) 4.8 % 4.3-6. 1 BASIC METABOLIC [id number] 04:34:00 Test Item Value Reference Range Comments SODIUM (BEAKER) (test 138 meq/L 136-145 code = 381) POTASSIUM (BEAKER) (test 3.8 meq/L 3.5-5.1 code = 379) CHLORIDE (BEAKER) (test 102 meq/L 98-107 code = 382) CO2 (BEAKER) (test code = 28 meq/L 22-29 355) BLOOD UREA NITROGEN 10 mg/dL 7-21 (BEAKER) (test code = 354) CREATININE (BEAKER) (test 0.82 mg/dL 0.57-1.25 code = 358) GLUCOSE RANDOM (BEAKER) 89 mg/dL 70-105 (test code = 652) CALCIUM (BEAKER) (test 9.4 mg/dL 8.4-10.2 code = 697) EGFR (BEAKER) (test code 76 mL/min/1.73 sq m EST IMATED GFR IS NOT = 1092) ACCURATE CREA TININE CLEARANCE IN PRE DICTING GLOMERULAR FILTR ATION RATE. ESTIMATED GFR IS NOT APPLICABLE F OR DIALYSIS PATIENT S. CBC (HEMOGRAM ONLY)2018-05-18 03:55:00 Test Item Value Reference Range Comments WHITE BLOOD CELL COUNT (BEAKER) (test code = 6.0 K/ L 3.5 -10.5 775) RED BLOOD CELL COUNT (BEAKER) (test code = 761) 4.02 M/ L 3.93-5.22 HEMOGLOBIN (BEAKER) (test code = 410) 13.5 GM/DL 11.2-15.7 HEMATOCRIT (BEAKER) (test code = 411) 40.0 % 34.1-44.9 MEAN CORPUSCULAR VOLUME (BEAKER) (test code = 99.5 fL 79 .4-94.8 753) MEAN CORPUSCULAR HEMOGLOBIN (BEAKER) (test code 33.6 pg 25.6-32.2 = 751) MEAN CORPUSCULAR HEMOGLOBIN CONC (BEAKER) (test 33.8 GM/DL 32.2-35.5 code = 752) RED CELL DISTRIBUTION WIDTH (BEAKER) (test code 14.0 % 11.7-14.4 = 412) PLATELET COUNT (BEAKER) (test code = 756) 251 K/CU MM 150-45 0 MEAN PLATELET VOLUME (BEAKER) (test code = 754) 11.3 fL 9.4-12.3 NUCLEATED RED BLOOD CELLS (BEAKER) (test code = 0 /100 WBC 0-0 413) TROPONIN [id number] 16:47:00 Test Item Value Reference Range Comments TROPONIN I (BEAKER) (test code = 397) 0.66 ng/mL 0.00-0.03 Troponin I (TnI) levels must [...] failure, acidosis, acute neurological disease, and persistent tachyarrhythmia.[id number] 16:11:00 Test Item Value Reference Range Comments ACTIVATED CLOTTING TIME 125 sec TESTED A T [facility] [address] (BEAKER) (test code = 441) [place] [address] [id number] 14:32:00 Test Item Value Reference Range Comments ACTIVATED CLOTTING TIME 142 sec TESTED A T [facility] [address] (BEAKER) (test code = 441) [place] [address] LIPID [id number] 12:15:00 Test Item Value Reference Range Comments TRIGLYCERIDES (BEAKER) (test 208 mg/dL Spe cimen slightly hemolyzed code = 540) CHOLESTEROL (BEAKER) (test code 183 mg/dL Specimen slightly hemolyzed = 631) HDL CHOLESTEROL (BEAKER) (test 53 mg/dL code = 976) LDL CHOLESTEROL CALCULATED 88 mg/dL (BEAKER) (test code = 633) Triglyceride Reference Range: Low Risk <150 Borderline 150-199 High Risk 200-499 Very High Risk >=500Cholesterol Reference Range: Low Risk <200 Borderline 200-239 High Risk >240HDL Cholesterol Reference Range: Low Risk >=60 High Risk <40LDL Cholesterol Reference Range: Optimal <100 Near Optimal 100-129 Borderline 130-159 High 160-189 Very High >=[id number] 10:57:00 Test Item Value Reference Range Comments ACTIVATED CLOTTING TIME 345 sec TESTED A T [facility] [address] (BEAKER) (test code = 441) [place] [address] [id number] 10:57:00 Test Item Value Reference Range Comments ACTIVATED CLOTTING TIME 219 sec TESTED A T [facility] [address] (BEAKER) (test code = 441) [place] [address] [id number] 09:39:00 Test Item Value Reference Range Comments ACTIVATED CLOTTING TIME 230 sec TESTED A T [facility] [address] (BEAKER) (test code = 441) [place] [address] TROPONIN [id number] 08:50:00 Test Item Value Reference Range Comments TROPONIN I (BEAKER) (test code = 397) 0.51 ng/mL 0.00-0.03 Troponin I (TnI) levels must [...] failure, acidosis, acute neurological disease, and persistent tachyarrhythmia.B-TYPE NATRIURETIC FACTOR (BNP) 2018-05-17 08:44:00 Test Item Value Reference Range Comments B-TYPE NATRIURETIC PEPTIDE (BEAKER) (test code = 230 pg/mL 0-100 700) BASIC METABOLIC [id number] 08:35:00 Test Item Value Reference Range Comments SODIUM (BEAKER) (test 141 meq/L 136-145 code = 381) POTASSIUM (BEAKER) (test 4.0 meq/L 3.5-5.1 Specime n slightly code = 379) hemolyzed CHLORIDE (BEAKER) (test 108 meq/L 98-107 code = 382) CO2 (BEAKER) (test code = 21 meq/L 22-29 355) BLOOD UREA NITROGEN 7 mg/dL 7-21 (BEAKER) (test code = 354) CREATININE (BEAKER) (test 0.72 mg/dL 0.57-1.25 Specim en slightly code = 358) hemolyzed GLUCOSE RANDOM (BEAKER) 87 mg/dL 70-105 (test code = 652) CALCIUM (BEAKER) (test 9.2 mg/dL 8.4-10.2 code = 697) EGFR (BEAKER) (test code 88 mL/min/1.73 sq m EST IMATED GFR IS NOT = 1092) ACCURATE CREA TININE CLEARANCE IN PRE DICTING GLOMERULAR FILTR ATION RATE. ESTIMATED GFR IS NOT APPLICABLE F OR DIALYSIS PATIENT S. [id number] 08:24:00 Test Item Value Reference Range Comments FIBRINOGEN LEVEL (BEAKER) (test code = 658) 269 mg/dl 225- 434 Prior to initiating [id number] 08:24:00 Test Item Value Reference Range Comments PARTIAL THROMBOPLASTIN TIME (BEAKER) (test code 36.8 seconds 22.5-36.0 = 760) Prior to initiating heparinPROTHROMBIN TIME/[id number] 08:23:00 Test Item Value Reference Range Comments PROTIME (BEAKER) (test code = 759) 12.6 seconds 11.7-14.7 INR (BEAKER) (test code = 370) 0.9 <=5.9 RECOMMENDED COUMADIN/WARFARIN INR THERAPY RANGESSTANDARD DOSE: 2.0 - 3.0 Includes: PROPHYLAXIS forvenous thrombosis, systemic embolization; TREATMENT for venous thrombosis and/or pulmonary embolus.HIGH RISK: Target INR is 2.5-3.5 for patients with mechanical heart valves.Prior to initiating heparinPLATELET COUNT 2018-05-17 08:13:00 Test Item Value Reference Range Comments PLATELET COUNT (BEAKER) (test code = 756) 240 K/CU MM 150-45 0 CBC (HEMOGRAM ONLY)2018-05-17 08:13:00 Test Item Value Reference Range Comments WHITE BLOOD CELL COUNT (BEAKER) (test code = 10.8 K/ L 3.5 -10.5 775) RED BLOOD CELL COUNT (BEAKER) (test code = 761) 4.58 M/ L 3.93-5.22 HEMOGLOBIN (BEAKER) (test code = 410) 14.9 GM/DL 11.2-15.7 HEMATOCRIT (BEAKER) (test code = 411) 45.5 % 34.1-44.9 MEAN CORPUSCULAR VOLUME (BEAKER) (test code = 99.3 fL 79 .4-94.8 753) MEAN CORPUSCULAR HEMOGLOBIN (BEAKER) (test code 32.5 pg 25.6-32.2 = 751) MEAN CORPUSCULAR HEMOGLOBIN CONC (BEAKER) (test 32.7 GM/DL 32.2-35.5 code = 752) RED CELL DISTRIBUTION WIDTH (BEAKER) (test code 13.8 % 11.7-14.4 = 412) PLATELET COUNT (BEAKER) (test code = 756) 240 K/CU MM 150-45 0 MEAN PLATELET VOLUME (BEAKER) (test code = 754) 10.3 fL 9.4-12.3 NUCLEATED RED BLOOD CELLS (BEAKER) (test code = 0 /100 WBC 0-0 413) HEPATIC FUNCTION [id number] 04:12:00 Test Item Value Reference Range Comments TOTAL PROTEIN (BEAKER) (test 6.7 gm/dL 6.0-8.3 Spe cimen slightly hemolyzed code = 770) ALBUMIN (BEAKER) (test code = 3.4 g/dL 3.5-5.0 Sp ecimen slightly hemolyzed 1145) BILIRUBIN TOTAL (BEAKER) (test 0.3 mg/dL 0.2-1.2 S pecimen slightly hemolyzed code = 377) BILIRUBIN DIRECT (BEAKER) (test 0.1 mg/dL 0.1-0.5 Specimen slightly hemolyzed code = 706) ALKALINE PHOSPHATASE (BEAKER) 126 U/L 40-150 (test code = 346) AST (SGOT) (BEAKER) (test code 101 U/L 5-34 S pecimen slightly hemolyzed = 353) ALT (SGPT) (BEAKER) (test code 142 U/L 6-55 S pecimen slightly hemolyzed = 347) TROPONIN [id number] 20:53:00 Test Item Value Reference Range Comments TROPONIN I (BEAKER) (test code = 397) < ng/mL 0.00-0.03 Troponin I (TnI) levels [...] acidosis, acute neurological disease, and persistent tachyarrhythmia.CT, [id number] 16:46:00PO contrastFINAL REPORT INDICATION:42-year-old female with epigastric abdominal pain. COMPARISON: None. TECHNIQUE: CT of the Abdomen and Pelvis WITH intravenous contrast. Enteric contrast was used. The exam was performed according to our department dose-optimization protocol, which includes automated exposure control, adjustments of mA and kV according to patient size. Iterative reconstructions are also sometimes employed. FINDINGS:There is a small amount of fluid in [...] endplate degenerative change at L5-S1 noted. Lower thor ax unremarkable. IMPRESSION: No CT explanation for the patient's epigastric pain. Specifically no CTevidence of pancreatitis or duodenitis. No gastric ulcer or evidence of gastritis (though stomach not well distended and therefore not well evaluated). Severe atherosclerosis of the infrarenal abdominal aorta with patent stents in both common iliac arteries. Prior cholecystectomy and hysterectomy. Signed: Francisco Boswell MDReport Verified Date/Time: 10/26/2017 16:46:44 Reading Location: [facility] Diagnostic Imaging Reading Room - [place] [address] TITIS PANEL, [id number] 10:50:00 Test Item Value Reference Range Comments HEPATITIS A IGM ANTIBODY (BEAKER) (test code = Nonreactive N onreactive 498) HEPATITIS B CORE IGM ANTIBODY (BEAKER) (test Nonreactive Non reactive code = 645) HEPATITIS C ANTIBODY (BEAKER) (test code = 367) Reactive Nonreactive HEPATITIS B SURFACE ANTIGEN (2) (BEAKER) (test Nonreactive N onreactive code = 2585) TROPONIN [id number] 08:46:00 Test Item Value Reference Range Comments TROPONIN I (BEAKER) (test code = 397) < ng/mL 0.00-0.03 Troponin I (TnI) levels [...] failure, acidosis, acute neurological disease, and persistent tachyarrhythmia.[id number] 08:38:00 Test Item Value Reference Range Comments MAGNESIUM (BEAKER) (test code = 627) 1.9 mg/dL 1.6-2.6 BASIC METABOLIC [id number] 08:38:00 Test Item Value Reference Range Comments SODIUM (BEAKER) (test 138 meq/L 136-145 code = 381) POTASSIUM (BEAKER) (test 3.5 meq/L 3.5-5.1 code = 379) CHLORIDE (BEAKER) (test 105 meq/L 98-107 code = 382) CO2 (BEAKER) (test code = 25 meq/L 22-29 355) BLOOD UREA NITROGEN 7 mg/dL 7-21 (BEAKER) (test code = 354) CREATININE (BEAKER) (test 0.76 mg/dL 0.57-1.25 code = 358) GLUCOSE RANDOM (BEAKER) 100 mg/dL 70-105 (test code = 652) CALCIUM (BEAKER) (test 9.1 mg/dL 8.4-10.2 code = 697) EGFR (BEAKER) (test code 83 mL/min/1.73 sq m EST IMATED GFR IS NOT = 1092) ACCURATE CREA TININE CLEARANCE IN PRE DICTING GLOMERULAR FILTR ATION RATE. ESTIMATED GFR IS NOT APPLICABLE F OR DIALYSIS PATIENT S. HEPATIC FUNCTION [id number] 08:38:00 Test Item Value Reference Range Comments TOTAL PROTEIN (BEAKER) (test code = 770) 6.8 gm/dL 6.0-8.3 ALBUMIN (BEAKER) (test code = 1145) 3.7 g/dL 3.5-5.0 BILIRUBIN TOTAL (BEAKER) (test code = 377) 0.3 mg/dL 0.2-1 .2 BILIRUBIN DIRECT (BEAKER) (test code = 706) 0.2 mg/dL 0.1- 0.5 ALKALINE PHOSPHATASE (BEAKER) (test code = 346) 138 U/L 40-150 AST (SGOT) (BEAKER) (test code = 353) 109 U/L 5-34 ALT (SGPT) (BEAKER) (test code = 347) 154 U/L 6-55 [id number] 08:38:00 Test Item Value Reference Range Comments LIPASE (BEAKER) (test code = 749) 73 U/L 8-78 CBC W/PLT COUNT & AUTO [id number] 08:20:00 Test Item Value Reference Range Comments WHITE BLOOD CELL COUNT (BEAKER) (test code = 8.8 K/ L 3.5 -10.5 775) RED BLOOD CELL COUNT (BEAKER) (test code = 761) 4.33 M/ L 3.93-5.22 HEMOGLOBIN (BEAKER) (test code = 410) 13.0 GM/DL 11.2-15.7 HEMATOCRIT (BEAKER) (test code = 411) 39.9 % 34.1-44.9 MEAN CORPUSCULAR VOLUME (BEAKER) (test code = 92.1 fL 79 .4-94.8 753) MEAN CORPUSCULAR HEMOGLOBIN (BEAKER) (test code 30.0 pg 25.6-32.2 = 751) MEAN CORPUSCULAR HEMOGLOBIN CONC (BEAKER) (test 32.6 GM/DL 32.2-35.5 code = 752) RED CELL DISTRIBUTION WIDTH (BEAKER) (test code 15.8 % 11.7-14.4 = 412) PLATELET COUNT (BEAKER) (test code = 756) 188 K/CU MM 150-45 0 MEAN PLATELET VOLUME (BEAKER) (test code = 754) 10.8 fL 9.4-12.3 NUCLEATED RED BLOOD CELLS (BEAKER) (test code = 0 /100 WBC 0-0 413) NEUTROPHILS RELATIVE PERCENT (BEAKER) (test code 48 % = 429) LYMPHOCYTES RELATIVE PERCENT (BEAKER) (test code 40 % = 430) MONOCYTES RELATIVE PERCENT (BEAKER) (test code = 9 % 431) EOSINOPHILS RELATIVE PERCENT (BEAKER) (test code 2 % = 432) BASOPHILS RELATIVE PERCENT (BEAKER) (test code = 0 % 437) NEUTROPHILS ABSOLUTE COUNT (BEAKER) (test code = 4.22 K/ L 1.56-6.13 670) LYMPHOCYTES ABSOLUTE COUNT (BEAKER) (test code = 3.56 K/ L 1.18-3.74 414) MONOCYTES ABSOLUTE COUNT (BEAKER) (test code = 0.83 K/ L 0 .24-0.36 415) EOSINOPHILS ABSOLUTE COUNT (BEAKER) (test code = 0.16 K/ L 0.04-0.36 416) BASOPHILS ABSOLUTE COUNT (BEAKER) (test code = 0.03 K/ L 0 .01-0.08 417) IMMATURE GRANULOCYTES-RELATIVE PERCENT (BEAKER) 0 % 0-1 (test code = 2801)
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
--- OUTSIDE RECORDS SUMMARY | 2019-07-09 21:18 | XMS REPORT | Continuity of Care Document ---
:1975 Author Organization [facility] Address [address] [place] [address] Allergies, Adverse Reactions, Alerts Allergen Type Severity Reaction Last Updated Verified Status Cephalexin ([id number]) Allergy Severe May 17 9 No Active Meloxicam ([id number]) Allergy Severe May 17, 2018 No Active Medications Medication Status Dose Units Route Sig Qty Days Start End Date Instr uctions Date Atorvastatin Active 1 ORAL Daily 30 30 Calcium Metoprolol Active 1 ORAL Daily 30 30 Succinate Nitroglycerin Discontinued 1 SUBLINGUAL As Directed December 28 sign of for Chest 2018 12:59am a ttack; june Pain (One-Time) repeat every 5 mins; if p ain persists a fter 3 in 15 mi n, medical attention is recommende d Ondansetron Hcl Discontinued 1 ORAL Every 6 Hours 20 5 O ctober December (4-10-16-) 2018 9 for Naus 12:59am Acetamin/Codeine Discontinued 1 ORAL Every 6 Hours September Do not combine with other products that contain Tylenol 300/30 Mg * As Needed as 2018 17t h, needed for 7:43pm 2018 (acetami nophen). Pain Acetamin/Codeine Discontinued 1 ORAL Every 4 Hours November 300/30 Mg * As Needed as 2018, needed for 12:59am 2019 Alprazolam Discontinued 1 ORAL Three Times November Daily As 2018, Needed as 12:59am 2018 needed for Anxiety Bacitracin Discontinued 1 TOPICAL Twice A Day 30 September apply (Topical) for Infection 2018 , to 7:43pm 2019 affec alexandra area( s) Clindamycin Hcl Discontinued 300 ORAL Three Times A 15 5 A ugust Puneet Day for 2018, Infection 7:43pm 2018 Cyclobenzaprine Discontinued 1 ORAL Three Times A 20 7 S eptember Puneet Day for 2018, Muscle Spasms 7:08pm 2019 Problems No problem information available. Procedures Procedure Date Performed Status EMERGENCY DEPT VISIT December 24, 2018 completed X-RAY EXAM OF FOOT December 24, [address] ANGIOGRAPHY CHEST December 27, 2018 completed EMERGENCY DEPT VISIT December 27, 2018 completed THER/PROPH/DIAG INJ IV PUSH December 27, 2018 completed TX/PRO/DX INJ NEW DRUG ADDON December 27, 2018 completed X-RAY EXAM CHEST 1 VIEW December 27, 2018 completed COMPLETE CBC W/AUTO DIFF WBC December 27, 2018 completed CREATINE MB FRACTION December 27, 2018 completed ASSAY OF CK (CPK) December 27, 2018 completed ASSAY OF MAGNESIUM December 27, 2018 completed ASSAY OF MYOGLOBIN December 27, 2018 completed PROTHROMBIN TIME December 27, 2018 completed THROMBOPLASTIN TIME PARTIAL December 27, 2018 completed ROUTINE VENIPUNCTURE December 27, 2018 completed ASSAY OF TROPONIN QUANT December 27, 2018 completed ASSAY OF TROPONIN QUANT December 27, 2018 completed COMPREHEN METABOLIC PANEL December 27, 2018 completed ASSAY OF NATRIURETIC PEPTIDE December 27, 2018 completed DRUG TEST PRSMV CHEM ANLYZR December 27, [address] ABD & PELV W/CONTRAST December 27, 2018 completed ELECTROCARDIOGRAM TRACING December 27, 2018 completed ELECTROCARDIOGRAM TRACING December 27, 2018 completed TX/PRO/DX INJ SAME DRUG ACTUARIAL MATHEMATICIAN December 27, 2018 completed December 27, 2018 completed X-ray of left foot, three views December 24, 2018 complete d X-ray of chest, single view December 27, 2018 completed Computed tomography angiography of chest for pulmonary Octob er 2018 completed embolism Computed tomography of abdomen and pelvis with contrast Octo pamela 2018 completed Relevant Diagnostic Tests and/or Laboratory Data Laboratory Results Test Date/Time Result Interpretation Reference Result Comment Performing Range Site White Blood November 10.1 4.0-11.5 [facility], [address] Count 2018 8:54pm [place] [address] Red Blood November 4.51 3.80-5.20 [facility], [address] Count 2018 8:54pm [place] [address] Hemoglobin November 15.3 10.5-15.7 [facility], [address] 2018 8:54pm [place] [address] Hematocrit November 46.3 34.0-50.0 [facility], [address] 2018 8:54pm [facility] X [address] Mean October 102.7 86-100 [facility], [address] Corpuscular 2018 Volume 8:54pm [place] [address] Mean October 33.9 26.2-33.4 [facility], [address] Corpuscular 2018 Hemoglobin 8:54pm [place] [address] Mean October 33.0 30-34 [facility], [address] Corpuscular 2018 Hemoglobin 8:54pm [facility] [address] Concent Red Cell November 12.6 12.0-15.5 [facility], [address] Distribution 2018 Width 8:54pm [place] [address] Platelet Count November 307 165-450 [facility], [address] 2018 8:54pm [place] [address] Mean Platelet November 10.2 9.4-12.6 [facility], [address] Volume 2018 8:54pm [place] [address] Neutrophils October 65.6 44.4-80.1 [facility], [address] (%) (Auto) 2018 8:54pm [place] [address] Immature October 0.2 0.0-0.4 [facility], [address] Granulocyte % 2018 (Auto) 8:54pm [place] [address] Lymphocytes November 26.6 10.0-50.0 [facility], [address] (%) (Auto) 2018 8:54pm [place] [address] Monocytes (%) November 6.2 3.6-12.0 [facility], [address] (Auto) 2018 8:54pm [place] [address] Eosinophils October 1.0 0.0-5.4 [facility], [address] (%) (Auto) 2018 8:54pm [place] [address] Basophils (%) November 0.4 0.1-1.2 [facility], [address] (Auto) 2018 8:54pm [place] [address] Neutrophils # October 6.64 1.56-6.13 [facility], [address] (Auto) 2018 8:54pm [place] [address] Absolute October 0.0 0.0-0.03 [facility], [address] Immature 2018 Granulocyte 8:54pm [place] [address] (auto Lymphocytes # October 2.7 1.18-3.74 [facility], [address] (Auto) 2018 8:54pm [facility] X [address] Monocytes # October 0.63 0.24-0.86 [facility], [address] (Auto) 2018 8:54pm [place] [address] Eosinophils # October 0.10 0.04-0.36 [facility], [address] (Auto) 2018 8:54pm [place] [address] Basophils # October 0.04 0.01-0.08 [facility], [address] (Auto) 2018 8:54pm [place] [address] Nucleated Red October 0 0-0.2 [facility], [address] Blood Cells % 2018 8:54pm [facility] X 18696 Nucleated Red October 0 0 [facility], [address] Blood Cells # 2018 8:54pm [facility] X 5[address] Prothrombin November 9.6 10.3-12.3 THERAPEUTIC [facility], [address] Time 2018 LEVEL: 1.5 to 8:54pm 1.9 times normal [facility] [address] range of PT Prothromb Time November 0.88 Recommended [facility], [address] International 2018 therapeutic Ratio 8:54pm range for [facility] X [address] patients receiving warfarin (coumadin) therapy: INR is 2.0 to 3.0Recommended range for patients with mechanical prosthetic heart valves: INR is 2.5 to 3.5 Activated November 26.6 22.5-37.0 [facility], [address] Partial 2018 Thromboplast 8:54pm [facility] [place] [address] Time Random Glucose November 109 74-106 [facility], [address] 2018 8:54pm [place] [address] Blood Urea November 8 6-20 [facility], [address] Nitrogen 2018 8:54pm [facility] X [address]605 Serum November 275 280-300 [facility], [address] Osmolality 2018 8:54pm [place] [address] Creatinine November 0.6 0.50-0.90 [facility], 104 2018 8:54pm [place] [address] Glomerular October > 60.00 GFR RESULTS ARE [facility], 104 Filtration 2018 REPORTED IN Rate Calc 8:54pm mL/min/1.73m2[place] [address] rmal GFR: >60mL/minModerat yadi decreased GFR: 30-59 mL/minSeverely decreased GFR: 15-29 mL/minKidney Failure (or Dialysis): <15 mL/minThe calculated eGFR is not valid for patients younger than 18 years or older than 75 years. BUN/Creatinine November 13.3 -20 [facility], 104 Ratio 2018 8:54pm [place] [address] Sodium Level November 138 135-145 [facility], 1 04 2018 8:54pm [place] [address] Potassium November 3.9 3.5-5.2 [facility], 104 Level 2018 8:54pm [place] [address] Chloride Level November 98 98-108 [facility], 104 2018 8:54pm [place] [address] Carbon Dioxide November 24 21-32 [facility], 104 Level 2018 8:54pm [place] [address] Anion Gap November 19.9 -20 [facility], 104 2018 8:54pm [place] [address] Calcium Level November 10.5 8.6-10.0 [facility], 104 2018 8:54pm [place] [address] Magnesium November 1.9 1.6-2.6 [facility], 104 Level 2018 8:54pm [place] [address] Total Protein November 8.7 6.6-8.7 [facility], 104 2018 8:54pm [place] [address] Albumin November 4.8 3.5-5.2 [facility], 104 2018 8:54pm [place] [address] Globulin November 3.9 [facility], 104 2018 8:54pm [place] [address] Albumin/Globul November 1.2 >1.0 [facility], [address] in Ratio 2018 8:54pm [place] [address] Total October 0.3 0.0-1.2 [facility], [address] Bilirubin 2018 8:54pm [place] [address] Aspartate October 19 15-32 [facility], [address] Amino Transf 2018 (AST/SGOT) 8:54pm [facility] [address] Alanine October 16 0-33 [facility], [address] Aminotransfera 2018 se (ALT/SGPT) 8:54pm [facility] [place] [address] IW-Hdq-D-Type October 240 0-125 [facility], [address] Natriuretic 2018 Peptide 8:54pm [place] [address] Total Alkaline October 134 35-105 [facility], [address] [facility] [address] Phosphatase 2018 8:54pm [place] [address] Urine October NEGATIVE NEGATIVE [facility], [address] Amphetamines 2018 Screen 11:42pm [place] [address] Urine October NEGATIVE NEGATIVE [facility], [address] [facility] Barbiturates, 2018 Quantitative 11:42[place] [address] Urine October NEGATIVE NEGATIVE [facility], [address] [facility] Benzodiazepine 2018 s Screen 11:42pm [place] [address] Urine October NEGATIVE NEGATIVE [facility], [address] [facility] [address] Cannabinoids 2018 11:42pm [place] [address] Urine Cocaine October NEGATIVE NEGATIVE [facility], [address] [facility] Metabolite 2018 11:42pm [place] [address] Urine Opiates October POSITIVE NEGATIVE [facility], [address] Screen 2018 11:42pm [place] [address] Urine October NEGATIVE NEGATIVE [facility], [address] Phencyclidine 2018 (PCP) Level 11:42pm [place] [address] Methadone October NEGATIVE NEGATIVE [facility], [address] Level 2018 11:42pm [place] [address] Propoxyphene October NEGATIVE NEGATIVE [facility], [address] Level 2018 11:42pm [place] [address] Oxycodone October NEGATIVE NEGATIVE [facility], [address] [facility] [address] Level 2018 11:42pm [place] [address] Urine Drug October . DRUGS OF ABUSE [facility] , [address] Screen Note 2018 CUT-OFF 11:42pm VALUESAMPHETAMIN [facility] [address] ES (AMPH) NEGATIVE (CUT OFF CONC: 1000 NG/ML)BARBITUATE S (ROHIT) NEGATIVE (CUT OFF CONC: 200 NG/ML)[place] (DONTA) NEGATIVE (CUT OFF CONC: 300 NG/ML)CANNABINOI DS (THC) NEGATIVE (CUT OFF CONC: 50 NG/ML)COCAINE (YUSRA) NEGATIVE (CUT OFF CONC: 300 NG/ML)OPIATES (OPI) NEGATIVE (CUT OFF CONC: 300 NG/ML)PHENCYCLID INE (PCP) NEGATIVE (CUT OFF CONC: 25 NG/ML)METHADONE (MTD) NEGATIVE (CUT OFF CONC: 300 NG/ML)PROPOXYPHE NE (PPX) NEGATIVE (CUT OFF CONC: 300 NG/ML)OXYCODONE (OXY) NEGATIVE (CUT OFF CONC: 100 NG/ML)ANY POSITIVE RESULT IS UNCONFIRMED. CONFIRMATION AND QUANTITATION AVAILABLE UPON MD REQUEST. Creatine November 96 20-180 [facility], ST Kinase 2018 8:54pm [facility] [address] Troponin I November < 0.30 0.0-0.5 Published [place] [address] 2018 clinical studies 11:42pm have shown [facility] [address] elevations of cTnI in patients with myocardial injury, as seen in unstable angina pectoris, cardiac contusions, and heart transplants. Elevations have also been seen in patients with rhabdomyolysis and polymyositis.So vated troponin levels point to myocardial injury, but are not necessarily indicative of an ischemic mechanism. The term IN should be used when there is evidence of cardiac damage, as detected by marker proteins in a clinical setting consistent with myocardial ischemia. If the clinical circumstance suggests that an ischemic mechanism is unlikely, other causes of cardiac injury should be considered.For diagnostic purposes, the results should always be assessed in conjunction with the patient's medical history, clinical examination and other findings. Creatine November 1.7 0.0-3.6 DIAGNOSTIC [facility] ST Kinase MB 2018 CITERIA: 8:54pm [facility] X [address] [facility] RELATIVE INDEX -SUGGESTIVE OF NON-AMI < or = 5 N/AGRAY ZONE (INCONCLUSIVE) > 5 < or = 4SUGGESTIVE OF AMI >5 > 4 Myoglobin November 25-58 [facility], [address] 2018 8:54pm [facility] X [address]74 Diagnostic Imaging Reports Report Dictated Date/Time Dictated By Status December 24, 2018 2:32pm LETI ROWE MD completed Patient: ALYSA SALDAÑA MR#: [id number] 764 : [address] ROSSY CHAVEZ DO Pt Status : REG ER Pt Location: [place] Man e/Time: 12/24/18 1326 Primary Care Physician: FELIPE LOONEY MD Technologist(s): IRA TSAI Procedure(s): [id number] RAD/FOOT 3 VIEWS LEFT Signed LEFT FOOT X-RAY - 3 VIEWS HISTORY: Injury COMPARISON: None available. FINDINGS: Bones: No acute displaced fracture. Mild hammertoe deformity of the second t o fourth digits. Joints: The joint spaces are well-maintained. Soft tissues: The soft tissues appear unremarkable. IMPRESSION: No acute radiographic abnormality. Signed by: Dr. Nelsy Clemens M.D. on 12/24/2018 2:32 PM Transcribed By: zanda SIGNED <electronically signed by NELSY CLEMENS MD> 31 33 NELSY CLEMENS MD December 27, 2018 11:21pm Ousmane Swartz DO completed Patient: ALYSA SALDAÑA MR#: [id number] 764 : [address] PRADIP HIGUERA MD Pt Status: REG ER Pt Location: [facility] Man e/Time: 12/27/182031 Primary Care Physician: FELIPE LOONEY MD Technologist(s): VICTOR M CHAPMAN Procedure(s): [id number] RAD/CHEST 1 VIEW Signed EXAMINATION: CHEST 1 VIEW INDICATION: Chest pain COMPARISON: Chest CT 09/10/2018, chest r adiograph 09/10/2018 FINDINGS: AP view TUBES and LINES: None. LUNGS: Lungs are well inflated. No co nsolidations. Chronic peripheral reticular opacities in both lungs. PLEURA: No pleural effusion or pneumoth orax. HEART AND MEDIASTINUM: The cardiomedias tinal silhouette is unremarkable. Left coronary stent. BONES AND SOFT TISSUES: Cervical spine h ardware appears intact. UPPER ABDOMEN: No free air under the estelal phragm. IMPRESSION: Findings of chronic lung disease. Left coronary stent. Signed by: Ousmane Swartz DO on 019 11:21 PM Transcribed By: zanda SIGNED <electronically signed by Ousmane Swartz DO> 20 23 Ousmane Swartz DO December 27, 2018 11:39pm Ousmane Swartz DO completed Patient: ALYSA SALDAÑA MR#: [id number] 764 : [address] PRADIP HIGUERA MD Pt Status: REG ER Pt Location: [facility] e/Time: 12/27/182100 Primary Care Physician: FELIPE LOONEY MD Technologist(s): IRA TSAI Procedure(s): [id number] CT/CT ANGIO CHEST W PE PROTOCO L Signed EXAM: CT Chest WITH contrast (PE Protoco l); CT abdomen and pelvis with contrast INDICATION: Chest pain, short of breath, abdominal pain, back pain COMPARISON: Chest CT 09/10/2018 TECHNIQUE: Chest was scanned utilizing a multidetec tor helical scanner from the lung apex to the proximal thighs after administrat ion of IV contrast. Thin section reconstructions were obtained with speci al concentration on the pulmonary arteries for the chest CT. Pulmonary em bolism protocol was performed for the chest. The abdomen and pelvis were scann ed in portal venous phase. Coronal and sagittal reformations were obtained. IV CONTRAST: 100 mL of Isovue 370 COMPLICATIONS: None RADIATION DOSE: Total DLP: 1183 mGy*cm Estimated effective dose: (DLP x 0. 014 x size factor) mSv CTDIvol has been reviewed. It is be low the limits set by the Radiation Protocol Committee (RPC). Dose modulation, iterative reconstr uction, and/or weight based adjustment of the mA/kV was utilized to reduce the radiation dose to as low as reasonably achievable. FINDINGS: LINES/ TUBES: None. LUNGS AND AIRWAYS: No filling defect is identified within the pulmonary arteries to the segmental level. No fill ing defect is identified within the pulmonary arteries to the segmental leve l. Mild peripheral/subpleural fibrotic changes, upper lobe predominant. Subpleu ral microcystic changes in the right upper lobe. No suspicious pulmonary nodu les. Mild smooth bilateral central bronchial wall thickening. PLEURA: The pleural spaces are clear. HEART AND MEDIASTINUM: The thyroid gland is normal. Unchanged subtle enlargement of lower mediastinal and campbell ateral hilar lymph nodes, measure less than 1 cm. Calcified mediastinal nodes. The heart is normal in size. There is no pericardial effusion. Calcific coron fco artery disease in the left anterior descending coronary artery, with coronar y artery stent. Main pulmonary artery measures 2.3 cm in diameter and the asce nding aorta measures 2.8 cm. HEPATOBILIARY: No focal hepatic les ions. There is intra- and extra- hepatic biliary dilation likely post cho lecystectomy reservoir effect. GALLBLADDER: There are cholecystectomy c lips. SPLEEN: No splenomegaly. Calcific spleni c granulomata. PANCREAS: No focal masses or ductal dilatation. ADRENALS: No adrenal nodules KIDNEYS/URETERS: Kidneys enhance symmetr ically. No hydronephrosis. No cystic or solid mass lesions. No stones. GI TRACT: No abnormal distention, wall t hickening, or evidence of bowel obstruction. Appendix is not seen, no evidence of inflammation in the right lower quadrant. PELVIC ORGANS/BLADDER: Hysterectomy. No adnexal masses. The urinary bladder is distended without abnormality.. LYMPH NODES: No lymphadenopathy. VESSELS: Aortoiliac stent patent. No ane urysm. Mild calcifications of the aorta and major branches. Narrowing of the hector iac artery origin. PERITONEUM / RETROPERITONEUM: No free ai r or fluid. BONES: Degenerative changes in the spine .. SOFT TISSUES: Unremarkable. BONES: Healed left upper rib fractures. Degenerative changes in the spine. Intact anterior cervical fixation hardwa re. SOFT TISSUES: Unremarkable. IMPRESSION: 1. Chronic findings of mild pulmonary f ibrotic changes, concerning for an interstitial lung disease. Recommend pul monology referral. 2. Coronary artery disease with left an terior descending coronary artery stent. 3. Degenerative changes in the spine, w orst at L5-S1. 4. Calcific atherosclerosis of the aort a and major branches, with patent aortoiliac stent. Possible flow-limiting stenosis at the celiac artery origin due to calcific atherosclerosis. 5. Findings can be seen with bronchitis . Signed by: Ousmane Swartz DO on 019 11:39 PM Transcribed By: zanda SIGNED <electronically signed by Ousmane Swartz DO> Ousmane Swartz DO December 29, 2018 6:03am LESLIE ORTEGA MD com pleted Patient: ALYSA SALDAÑA MR#: [id number] 764 : 1975 Pt Location: [facility] Man e/Time: 12/27/182031 Primary Care Physician: FELIPE LOONEY MD Signed [facility] Test Date: 2018-12-27 Pat Name: ALYSA Colon epartment: R oom: Gender: Female T echnician: ARMANI : 1975 R equested By: MD HIGUERA Order Number: [id number] R idalia MD: Leslie Ortega M.D. F.A.A.C Measurements Intervals A xis Rate: 92 P : 62 NM: 143 Q RS: 56 QRSD: 91 T : 78 QT: 373 QTc: 462 Interpretive Statements Sinus rhythm Electronically Signed On 12-29-2018 6:03: 36 CDT by Nola Calero.A.A.C Transcribed By: zanda SIGNED <electronically signed by LESLIE ORTEGA MD> 2 2 LESLIE ORTEGA MD December 29, 2018 6:03am LESLIE ORTEGA MD com pleted Patient: ALYSA SALDAÑA MR#: [id number] 764 : 1975 Pt Location: [facility] Man e/Time: 12/27/18 Primary Care Physician: FELIPE LOONEY MD Signed [facility] Test Date: 2018-12-27 Pat Name: ALYSA Colon epartment: R oom: Gender: Female T echnician: ARMANI : 1975 R equested By: MD HIGUERA Order Number: [id number] Maricel friedman MD: Nola CaleroA.AZenonC Measurements Intervals A xis Rate: 91 P : 46 NM: 139 Q RS: 63 QRSD: 100 T : 78 QT: 357 QTc: 440 Interpretive Statements Sinus rhythm Borderline repolarization abnormality Artifact in lead(s) I,III,aVR,aVL,aVF Electronically Signed On 12-29-2018 6:03: 49 CDT by Nola CaleroA.AZenonC Transcribed By: zanda SIGNED <electronically signed by LESLIE ORTEGA MD> 2 2 LESLIE ORTEGA MD December 29, 2018 3:17pm Ousmane Swartz ompleted Patient: ALYSA SALDAÑA MR#: [id number] 764 : [address] PRADIP HIGUERA MD Pt Status: DEP Pt Location: [facility] e/Time: 12/27/182139 Primary Care Physician: FELIPE LOONEY MD Technologist(s): IRA TSAI Procedure(s): [id number] CT/CT ABD & PELVIS W Signed EXAM: CT Chest WITH contrast (PE Protoco l); CT abdomen and pelvis with contrast INDICATION: Chest pain, short of breath, abdominal pain, back pain COMPARISON: Chest CT 09/10/2018 TECHNIQUE: Chest was scanned utilizing a multidetec tor helical scanner from the lung apex to the proximal thighs after administrat ion of IV contrast. Thin section reconstructions were obtained with speci al concentration on the pulmonary arteries for the chest CT. Pulmonary em bolism protocol was performed for the chest. The abdomen and pelvis were scann ed in portal venous phase. Coronal and sagittal reformations were obtained. IV CONTRAST: 100 mL of Isovue 370 COMPLICATIONS: None RADIATION DOSE: Total DLP: 1183 mGy*cm Estimated effective dose: (DLP x 0. 014 x size factor) mSv CTDIvol has been reviewed. It is be low the limits set by the Radiation Protocol Committee (RPC). Dose modulation, iterative reconstr uction, and/or weight based adjustment of the mA/kV was utilized to reduce the radiation dose to as low as reasonably achievable. FINDINGS: LINES/ TUBES: None. LUNGS AND AIRWAYS: No filling defect is identified within the pulmonary arteries to the segmental level. No fill ing defect is identified within the pulmonary arteries to the segmental leve l. Mild peripheral/subpleural fibrotic changes, upper lobe predominant. Subpleu ral microcystic changes in the right upper lobe. No suspicious pulmonary nodu les. Mild smooth bilateral central bronchial wall thickening. PLEURA: The pleural spaces are clear. HEART AND MEDIASTINUM: The thyroid gland is normal. Unchanged subtle enlargement of lower mediastinal and campbell ateral hilar lymph nodes, measure less than 1 cm. Calcified mediastinal nodes. The heart is normal in size. There is no pericardial effusion. Calcific coron fco artery disease in the left anterior descending coronary artery, with coronar y artery stent. Main pulmonary artery measures 2.3 cm in diameter and the asce nding aorta measures 2.8 cm. HEPATOBILIARY: No focal hepatic les ions. There is intra- and extra- hepatic biliary dilation likely post cho lecystectomy reservoir effect. GALLBLADDER: There are cholecystectomy c lips. SPLEEN: No splenomegaly. Calcific spleni c granulomata. PANCREAS: No focal masses or ductal dilatation. ADRENALS: No adrenal nodules KIDNEYS/URETERS: Kidneys enhance symmetr ically. No hydronephrosis. No cystic or solid mass lesions. No stones. GI TRACT: No abnormal distention, wall t hickening, or evidence of bowel obstruction. Appendix is not seen, no evidence of inflammation in the right lower quadrant. PELVIC ORGANS/BLADDER: Hysterectomy. No adnexal masses. The urinary bladder is distended without abnormality.. LYMPH NODES: No lymphadenopathy. VESSELS: Aortoiliac stent patent. No ane urysm. Mild calcifications of the aorta and major branches. Narrowing of the hector iac artery origin. PERITONEUM / RETROPERITONEUM: No free ai r or fluid. BONES: Degenerative changes in the spine .. SOFT TISSUES: Unremarkable. BONES: Healed left upper rib fractures. Degenerative changes in the spine. Intact anterior cervical fixation hardwa re. SOFT TISSUES: Unremarkable. IMPRESSION: 1. Chronic findings of mild pulmonary f ibrotic changes, concerning for an interstitial lung disease. Recommend pul monology referral. 2. Coronary artery disease with left an terior descending coronary artery stent. 3. Degenerative changes in the spine, w orst at L5-S1. 4. Calcific atherosclerosis of the aort a and major branches, with patent aortoiliac stent. Possible flow-limiting stenosis at the celiac artery origin due to calcific atherosclerosis. 5. Findings can be seen with bronchitis . Signed by: Ousmane Swartz DO on 019 11:39 PM Transcribed By: zanda SIGNED <electronically signed by Ousmane Swartz DO> 1517 1519 Ousmane Swartz DO Health Concerns No known health concerns documented Advance Directives Advance Directive Response Recorded Date/Time Advance Directive on File No February 13, 2019 5:35pm Chief Complaint and Reason for Visit Chief Complaint Extremity Pain/Injury Reason for Visit [id number] Encounters Encounter Location(s) Arrival/Admit Date Discharge/Depart Date Provider(s) [facility] [place] February 13, February 13, 2019 TONNY Rangel Emergency Room [facility] 2019 5:30pm 6:45pm JEANETTE Garcia MD Ctr Departed [facility] December 27, 2018 December 28, 2018 PRADIP JUÁREZ MD Emergency Room [facility] 8:21pm 1:17am Ctr Departed [place] December 24, 2018 December 24, 2018 Dian KELLY Emergency Room [facility] 1:09pm 2:45pm DO Ctr

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
--- OUTSIDE RECORDS SUMMARY | 2019-07-09 21:19 | XMS REPORT | Continuity of Care Document ---
:1975 Author Organization [facility] Address [address] [place] [address] Care Team Providers Name Role Phone Meron LOONEY Primary Care Physician Allergies, Adverse Reactions, Alerts Allergen Type Severity Reaction Last Verified Status Updated Cephalexin Allergy Severe May 17, No Active ([id number]) 2018 Meloxicam Allergy Severe May 17, No Active ([id number]) 2018 Medications Medication Status Dose Units Route Sig Qty Days Start End Instruct ions Date Date Atorvastatin Active 1 ORAL Daily 30 30 Calcium Metoprolol Active 1 ORAL Daily 30 30 Succinate Nitroglycerin Active 1 SUBLINGU As November 28 sign of AL Direct , ; june ed for 2019 repeat every Chest 12:59am 5 mins; if Pain pain persists after 3 in 15 min, medical attention is recommended Ondansetron Active 1 ORAL Every 20 02 December Hcl 6 , Hours 2018 (4-10- 12:59am 16-) for Naus Tramadol Hcl Active 1 ORAL Every 15 02 May 6 , Hours 2019 As 8:41pm Needed as needed for Pain Acetamin/Codei Discontin 1 ORAL Every September Decemb e Do not combine with other products that contain Tylenol ne 300/30 Mg * ued 08 03, r , (ac etaminophen). 2018 As 7:43pm Needed as needed for Pain Acetamin/Codei Discontin 1 ORAL Every 12 December Decem be ne 300/30 Mg * ued , , 2018 As 12:59am Needed as needed for Alprazolam Discontin 1 ORAL Three 15 30 November Decembe ued Times 31st, r 17th, Daily 2018 2019 As 12:59am Needed as needed for Anxiet y Bacitracin Discontin 1 TOPICAL Twice 30 7 September Decembe apply to (Topical) ued A Day , r 17th, affected for 2018 2018 area(s) Infect 7:43pm ion Clindamycin Discontin 300 ORAL Three 15 5 [place] Decembe Hcl ued Times , r 17, A Day 2018 2019 for 7:43pm Infect ion Cyclobenzaprin Discontin 1 ORAL Three 20 7 Septembe Dece mbe e Hcl ued Times r 9th, r 17th, A Day 2018 2018 for 7:08pm Muscle Spasms Problems No problem information available. Procedures Procedure Date Performed Status EMERGENCY DEPT VISIT May 02, 2019 completed X-RAY EXAM OF FOOT May 02, 2019 completed UPR/L XTREMITY ART 2 LEVELS May 02, 2019 completed X-ray of left foot, three May 02, 2019 completed views Computed tomography of head June 03, 2019 completed without contrast Computed tomography of June 03, 2019 completed cervical spine without contrast Relevant Diagnostic Tests and/or Laboratory Data Laboratory Results Test Date/Time Result Interpretation Reference Result Perfo rming Range Comment Site White Blood Count June 02, 12.0 4.0-11.5 M [facility], 104 2019 4:14pm [place] [address] Red Blood Count June 02, 4.64 3.80-5.20 [facility], 104 2019 4:14pm [place] [address] Hemoglobin June 02, 14.9 10.5-15.7 [facility], 10 4 2019 4:14pm [place] [address] Hematocrit June 02, 44.7 34.0-50.0 [facility], 10 4 2019 4:14pm [place] [address] Mean Corpuscular June 02, 96.3 86-100 MR , [address] Volume 2020 4:14pm [place] [address] Mean Corpuscular June 02, 32.1 26.2-33.4 MR , 104 Hemoglobin 2020 4:14pm [facility] [address] Mean Corpuscular June 02, 33.3 30-34 MR , [address] Hemoglobin Concent 2019 4:14pm [place] [address] Red Cell June 02, 13.3 12.0-15.5 [facility], [address] Distribution Width 2020 4:14pm [place] [address] Platelet Count June 02, 269 165-450 [facility] , [address] ST 2019 4:14pm [place] [address] Mean Platelet June 02, 10.2 9.4-12.6 [facility], [address] [facility] ST Volume 2020 4:14pm [place] [address] Neutrophils (%) June 02, 68.2 44.4-80.1 [facility], 104 (Auto) 2019 4:14pm [place] [address] Immature June 02, 0.3 0.0-0.4 [facility], 104 Granulocyte % 2019 4:14pm [place] [address] (Auto) Lymphocytes (%) June 02, 24.8 10.0-50.0 [facility], 104 (Auto) 2019 4:14pm [place] [address] Monocytes (%) June 02, 6.1 3.6-12.0 [facility], 104 (Auto) 2019 4:14pm [place] [address] Eosinophils (%) June 02, 0.3 0.0-5.4 [facility], 104 (Auto) 2020 4:14pm [place] [address] Basophils (%) June 02, 0.3 0.1-1.2 [facility], 104 (Auto) 2019 4:14pm [place] [address] Neutrophils # June 02, 8.21 1.56-6.13 [facility], [address] ST (Auto) 2020 4:14pm [place] [address] Absolute Immature June 02, 0.0 0.0-0.03 M [facility], 104 Granulocyte (auto 2020 4:14pm [place] [address] Lymphocytes # June 02, 3.0 1.18-3.74 [facility], [address] ST (Auto) 2020 4:14pm [place] [address] Monocytes # (Auto) June 02, 0.73 0.24-0.86 [facility], [address] ST 2020 4:14pm [place] [address] Eosinophils # June 02, 0.03 0.04-0.36 [facility], 104 (Auto) 2020 4:14pm [place] [address] Basophils # (Auto) June 02, 0.03 0.01-0.08 [facility], 104 2019 4:14pm [facility] [address] Nucleated Red June 02, 0 0-0.2 [facility], Blood Cells % 2019 4:14pm [facility] [address] Nucleated Red June 02, 0 0 [facility], Blood Cells # 2020 4:14pm [facility] [address] Urine Color June 02, LIGHT [facility], 1 04 2019 4:31pm YELLOW [facility] [address] Urine Appearance June 02, CLEAR CLEAR [facility], 2019 4:31pm [facility] [address] Urine Glucose (UA) June 02, NEGATIVE NEGATIVE [facility], 2019 4:[address] [place] [address] Urine Bilirubin June 02, NEGATIVE NEGATIVE [facility], [facility] [address] Urine Ketones June 02, NEGATIVE NEGATIVE [facility], 2019 4:[address] [place] [address] Urine Specific June 02, 1.007 1.003-1.03 [facility], 104 2019 4:31pm 0 [facility] [address] Urine Blood June 02, NEGATIVE NEGATIVE [facility], 1 04 [facility] [address] Urine pH June 02, 7.000 5-9 [facility], 2019 4:[address] [place] [address] Urine Protein June 02, NEGATIVE NEGATIVE [facility], 2019 4:[address] [place] [address] Urine Urobilinogen June 02, NORMAL 0.2-1.0 [facility], 2019 4:[address] [place] [address] Urine Nitrate June 02, NEGATIVE NEGATIVE [facility], [facility] [address] Urine Leukocyte June 02, NEGATIVE NEGATIVE [facility], 104 Esterase 2019 [facility] [address] Urine RBC June 02, 1-5 0-5 [facility], [facility] [address] Urine WBC June 02, 1-5 0-5 [facility], 2019 4:[address] [place] [address] Urine Epithelial June 02, <1 0-5 [facility], 2019 4:[address] [place] [address] Urine Bacteria June 02, None None [facility] , 2019 4:31pm Detected Detect [facility] [address] Urine Casts June 02, None None [facility], 1 04 2019 4:31pm Detected Detect [facility] [address] Urine Culture June 02, NO [facility], 104 Reflexed 2019 4:31pm [place] [address] Random Glucose June 02, 122 74-106 [facility] , 104 2019 4:14pm [place] [address] Blood Urea June 02, 6 6-20 [facility], 10 4 Nitrogen 2019 4:14pm [facility] [address] Serum Osmolality June 02, 282 280-300 [facility], 104 2019 4:14pm [place] [address] Creatinine June 02, 0.6 0.50-0.90 [facility], 10 4 2019 4:14pm [place] [address] Glomerular June 02, > 60.00 GFR RESULTS [facility], 104 Filtration Rate 2019 4:14pm [facility] [address] Calc REPORTED IN mL/min/1.73 m2.Normal GFR: >60mL/minMo derately decreased GFR: 30-59 mL/minSever yadi decreased GFR: 15-29 mL/minKidne y Failure (or Dialysis): <15 mL/minThe calculated eGFR is not valid for patients younger than 18 years or older than 75 years. BUN/Creatinine June 02, 10.0 12-20 [facility] , 104 Ratio 2019 4:14pm [place] [address] Sodium Level June 02, 142 135-145 [facility], 104 2019 4:14pm [facility] [address] Potassium Level June 02, 3.9 3.5-5.2 [facility], 104 2019 4:14pm [place] [address] Chloride Level June 02, 102 98-108 [facility] , 104 2019 4:14pm [place] [address] Carbon Dioxide June 02, 25 21-32 [facility] , 104 Level 2019 4:14pm [place] [address] Anion Gap June 02, 18.9 12-20 [facility], 104 2019 4:14pm [facility] [address] Calcium Level June 02, 9.7 8.6-10.0 [facility], 104 2019 4:14pm [facility] [address] Total Protein June 02, 8.1 6.6-8.7 [facility], 104 2019 4:14pm [place] [address] Albumin June 02, 4.6 3.5-5.2 [facility], [address] ST 2019 4:14pm [place] [address] Globulin June 02, 3.5 [facility], [address] ST 2019 4:14pm [place] [address] Albumin/Globulin June 02, 1.3 >1.0 [facility], ST Ratio 2019 4:14pm [place] [address] Total Bilirubin June 02, < 0.3 0.0-1.2 [facility], [address] ST 2019 4:14pm [place] [address] Aspartate Amino June 02, 19 15-32 [facility], [address] Transf (AST/SGOT) 2020 4:14pm [place] [address] Alanine June 02, 11 0-33 [facility], [address] Aminotransferase 2020 4:14pm [facility] [place] [address] (ALT/SGPT) Total Alkaline June 02, 118 35-105 [facility] , [address] ST Phosphatase 2019 4:14pm [place] [address] Diagnostic Imaging Reports Report Dictated Date/Time Dictated By Status May 02, 2019 8:26pm JULES HILARIO MD com pleted Patient: DG SALDAÑA LMR#: [id number] : [address] KINSEY IRWIN MD Pt Status: [facility] ER Pt Location: ER Date/Time: 05/02/191927 Primary Care Physician: FELIPE LOONEY MD Technologist(s): ISAAC HANKINS Procedure(s): [id number] RAD/FOOT 3 VIEWS LEFT Signed FOOT 3 VIEWS LEFT - Multiple views HISTORY: Injury COMPARISON: 12/24/2018 FINDINGS: Bones: No acute displaced fracture. Osseous alignment is within normal limit s. Joints: The joint spaces are well-maintained. Soft tissues: The soft tissues appear unremarkable. IMPRESSION: No displaced fracture noted. Signed by: Jules Hilario MD on 2019 8:26 PM Transcribed By: [employer] SIGNED <electronically signed by JULES HILARIO MD> 25 27 JULES HILARIO MD Health Concerns Health Concerns may be documented in an alternate section. Advance Directives Advance Directive Response Recorded Date/Time Advance Directive on File No June 02 0 3:56pm Chief Complaint and Reason for Visit Chief Complaint Trauma Reason for Visit [id number] Encounters Encounter Location(s) Arrival/Admit Date Discharge/Depart Date Provider(s) Departed [place] June 03, 2019 June 03, 2019 Adele CHAVEZ Emergency Room [facility] 3:53pm 5:23pm DO Ctr Departed [place] May 02, 2019 May 02, 2019 CELIA IRWIN MD Emergency Room [facility] 7:18pm 10:55pm Ctr Assessments No Assessments Information Available Functional Status No Functional Status information available Goals Goals may be documented in an alternate section. Immunizations No Immunization Information Available Mental Status No Mental Status Information Available Medical Equipment No Medical Equipment Information available Insurance Providers Guarantor Dg Saldaña Radha Address [address] [place] [phone] Contact Info. Home Phone: Payer Policy Id Coverage Id Subscriber's Subscriber Id Effective E xpiration Name Date Date Cigna [id number] Shyanne, [id number] [facility] [address] [place] Plan of Treatment Fill and take muscle relaxants as needed for neck pain. Follow up with PCP in the coming week. Future Tests Future scheduled test information is unavailable Pending Tests Pending diagnostic test information is unavailable Future Visits Future appointment information is unavailable Referrals to Other Providers Reason for Referral Start Provider Provider Contact Provider Address Referral Date Information FELIPE LOONEY Work Phone: [phone] [facility] [address] Future Procedures Future procedure information is unavailable Future Medications Future medication information is unavailable Patient Instructions Muscle Strain, Gepz-vv-Ozzs Head Injury, Adult, Tztp-[id number] Social History Smoking Status Status Date of Observation Smokes tobacco daily (finding) June 03, 2019 3:56pm Observation Status Observation Response Date of Response History of heart artery stent December 282018 1:01am Hx Physical Abuse No June 03, 2019 3:56 pm Assigned Sex Female Vital Signs Vital Reading Result Collection Date/Time Weight 182 [lb_av] June 03, 2019 3:56 pm BMI (Body Mass Index) 31.2 kg/m2 June 03, 2019 3: 56pm
[2019-07-09] MEDS ORDERED: FENTANYL CITR 100 MCG/2 ML ONE (21:56)
[2019-07-09] MEDS ORDERED: HYDROCODONE/APAP 10/325 TAB ONE (22:41)
--- NOTE | 2019-07-09 22:44 | ER ---
Nurse's Notes [facility] Name: Alysa Saldaña Age: 44 yrs Sex: Female : 1975 Arrival Date: 07/09/2019 Time: 20:46 Bed 18 Private MD: Diagnosis: Trigeminal neuralgia Presentation: 07/08 20:58 Chief complaint: Patient states: "I have Trigeminal Neuralgia, I am hurting on my face ca1 on the L side, in my jaw, teeth, sinuses, nose, forehead" Reports nausea. 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 Coronavirus screen: Proceed with normal triage. Patient denies a cough. Patient denies shortness of breath or difficulty breathing. Patient denies measured and/or subjective temperature greater than 100.4F prior to today's visit. Patient denies travel on a cruise ship or to a country the [facility] currently lists as an affected area. Patient denies contact with known and/or suspected case of COVID-19. Ebola Screen: Patient negative for fever greater than or equal to 101.5 degrees Fahrenheit, and additional compatible Ebola Virus Disease symptoms Patient denies exposure to infectious person. Patient denies travel to an Ebola-affected area in the 21 days before illness onset. No symptoms or risks identified at this time. Initial Sepsis Screen: Does the patient meet any 2 criteria? No. Patient's initial sepsis screen is negative. Does the patient have a suspected source of infection? No. Patient's initial sepsis screen is negative. Risk Assessment: Do you want to hurt yourself or someone else? Patient reports no desire to harm self or others. Onset of symptoms was July 09, 2019. 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 N/A - Hysterectomy ca1 Historical: - Allergies: 21:03 Keflex; ca1 21:03 Mobic; ca1 - Home Meds: 21:03 aspirin 81 mg Oral chew 1 tab once daily [Active]; metoprolol succinate 25 mg oral Tb24 ca1 .5 tab once daily [Active]; atorvastatin 80 mg oral tab 1 tab once daily [Active]; tizanidine 4 mg oral cap 1 cap nightly [Active]; Lyrica Oral 75 mg 2 times per day [Active]; tramadol 50 mg Oral tab 1 tab every 6 hours [Active]; Prednisone Oral [Active]; - PMHx: 21:03 cardiac stents; stents; in each leg; ca1 - PSHx: 21:03 Cholecystectomy; Appendectomy; Hysterectomy; ; neck surgery; ca1 - Immunization history:: Adult Immunizations up to date, Flu vaccine is not up to date. - Social history:: Smoking status: Patient reports the use of cigarette tobacco products, smokes one-half pack cigarettes per day. Screenin:24 Abuse screen: Denies threats or abuse. Denies injuries from another. Nutritional rv screening: No deficits noted. Tuberculosis screening: No symptoms or risk factors identified. Fall Risk None identified. Assessment: 21:24 General: Appears comfortable, Behavior is calm, cooperative. Pain: Complains of pain in rv face, LEFT SIDE. Neuro: Level of Consciousness is awake, alert, obeys commands, Oriented to person, place, time, situation. Cardiovascular: Patient's skin is warm and dry. Respiratory: Airway is patent Respiratory effort is even, unlabored. Derm: Skin with poor turgor. Vital Signs: 20:58 BP 115 / 68; Pulse 110; Resp 17; Temp 98.4(TE); Pulse Ox 97% on R/A; Weight 81.65 kg ca1 (R); Height 5 ft. 4 in. (162.56 cm) (R); Pain 10/10; 23:00 BP 121 / 68; Pulse 99; Resp 17; Pulse Ox 98% ; rv 23:32 BP 118 / 66; Pulse 98; Resp 18; Pulse Ox 98% on R/A; rv 20:58 Body Mass Index 30.90 (81.65 kg, 162.56 cm) ca1 ED Course: 20:46 Patient arrived in ED. bp1 21:00 Triage completed. ca1 21:03 Arm band placed on right wrist. ca1 21:16 Angel Connor RN is Primary Nurse. rv 21:17 Trinidad Reed FNP-C is PHCP. kb 21:17 Derek Almonte MD is Attending Physician. kb 21:24 Patient has correct armband on for positive identification. Pulse ox on. NIBP on. rv 21:35 Inserted saline lock: 18 gauge in right antecubital area, using aseptic technique. rv Blood collected. 23:23 No provider procedures requiring assistance completed. rv 23:23 IV discontinued, intact, bleeding controlled, No redness/swelling at site. Pressure rv dressing applied. Administered Medications: 21:55 Drug: fentaNYL (PF) 50 mcg {Note: rass 0.} Route: IM; Site: right deltoid; rv 22:24 Follow up: Response: No adverse reaction; Pain is unchanged, physician notified; RASS: rv Restless (+1) 22:36 Drug: [place] 10 mg-325 mg 1 tabs {Note: rass 1.} Route: PO; rv 23:31 Follow up: Response: Medication administered at discharge. rv Outcome: 22:43 Discharge ordered by . kb 23:23 Discharged to home ambulatory. rv 23:23 Condition: good 23:23 Discharge instructions given to patient, Instructed on discharge instructions, follow up and referral plans. Demonstrated understanding of instructions, follow-up care. 23:24 Patient left the ED. rv Signatures: Trinidad Reed, WOODEN FURNITURE POLISHER-C WOODEN FURNITURE POLISHER-Angel Lewis RN RN rv Summer Benson RN RN ca1 [facility], Cheryl bp1 Corrections: (The following items were deleted from the chart) 21:10 20:58 BP 115 / 68; Pulse 110bpm; Resp 97bpm; Pulse Ox 97% RA; Temp 98.4F Temporal; ca1 81.65 kg Reported; Height 5 ft. 4 in. Reported; BMI: 30.9; Pain 10/10; ca1 23:32 23:22 BP 108 / 72; Pulse 79bpm; Resp 17bpm; Pulse Ox 100% RA; rv rv 23:32 22:00 BP 109 / 78; Pulse 68bpm; Resp 17bpm; Pulse Ox 100% RA; rv rv
--- NOTE | 2019-07-09 22:44 | EDPHYS ---
Physician Documentation [facility] Name: Alysa Saldaña Age: 44 yrs Sex: Female : 1975 Arrival Date: 07/09/2019 Time: 20:46 Bed 18 Private MD: ED Physician Derek Almonte HPI: 07/08 22:40 This 44 yrs old Female presents to ER via Wheelchair with complaints of kb FACIAL PAIN, LEFT SIDE. 22:41 Pt reports she has trigeminal neuralgia. States she has had it for years, but it has kb been worse over the last few months. States the pain has gotten worse over the last 2 days. Pt has been out of stites for 3 days and goes back to her Pain management dr on . States she has an appt with Dr Mckenzie at the end of the month as well. . Onset: The symptoms/episode began/occurred 2 month(s) ago. Severity of symptoms: At their worst the symptoms were severe in the emergency department the symptoms are unchanged. The patient has experienced similar episodes in the past. The patient has not recently seen a physician. 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 ca1 Historical: - Allergies: 21:03 Keflex; ca1 21:03 Mobic; ca1 - Home Meds: 21:03 aspirin 81 mg Oral chew 1 tab once daily [Active]; metoprolol succinate 25 mg oral Tb24 ca1 .5 tab once daily [Active]; atorvastatin 80 mg oral tab 1 tab once daily [Active]; tizanidine 4 mg oral cap 1 cap nightly [Active]; Lyrica Oral 75 mg 2 times per day [Active]; tramadol 50 mg Oral tab 1 tab every 6 hours [Active]; Prednisone Oral [Active]; - PMHx: 21:03 cardiac stents; stents; in each leg; ca1 - PSHx: 21:03 Cholecystectomy; Appendectomy; Hysterectomy; ; neck surgery; ca1 - Immunization history:: Adult Immunizations up to date, Flu vaccine is not up to date. - Social history:: Smoking status: Patient reports the use of cigarette tobacco products, smokes one-half pack cigarettes per day. ROS: 22:34 Constitutional: Negative for fever, chills, and weight loss, Cardiovascular: Negative kb for chest pain, palpitations, and edema, Respiratory: Negative for shortness of breath, cough, wheezing, and pleuritic chest pain, Abdomen/GI: Negative for abdominal pain, nausea, vomiting, diarrhea, and constipation, MS/Extremity: Negative for injury and deformity, Skin: Negative for injury, rash, and discoloration. 22:39 Neuro: Positive for facial pain d/t trigeminal neuralgia. kb Exam: 22:40 Constitutional: This is a well developed, well nourished patient who is awake, alert, kb and in no acute distress. Head/Face: Normocephalic, atraumatic. Chest/axilla: Normal chest wall appearance and motion. Nontender with no deformity. No lesions are appreciated. Cardiovascular: Regular rate and rhythm with a normal S1 and S2. No gallops, murmurs, or rubs. Normal PMI, no JVD. No pulse deficits. Respiratory: Lungs have equal breath sounds bilaterally, clear to auscultation and percussion. No rales, rhonchi or wheezes noted. No increased work of breathing, no retractions or nasal flaring. Abdomen/GI: Soft, non-tender, with normal bowel sounds. No distension or tympany. No guarding or rebound. No evidence of tenderness throughout. Back: No spinal tenderness. No costovertebral tenderness. Full range of motion. Skin: Warm, dry with normal turgor. Normal color with no rashes, no lesions, and no evidence of cellulitis. MS/ Extremity: Pulses equal, no cyanosis. Neurovascular intact. Full, normal range of motion. Neuro: Awake and alert, GCS 15, oriented to person, place, time, and situation. Cranial nerves II-XII grossly intact. Motor strength 5/5 in all extremities. Sensory grossly intact. Cerebellar exam normal. Normal gait. Vital Signs: 20:58 BP 115 / 68; Pulse 110; Resp 17; Temp 98.4(TE); Pulse Ox 97% on R/A; Weight 81.65 kg ca1 (R); Height 5 ft. 4 in. (162.56 cm) (R); Pain 10/10; 23:00 BP 121 / 68; Pulse 99; Resp 17; Pulse Ox 98% ; rv 23:32 BP 118 / 66; Pulse 98; Resp 18; Pulse Ox 98% on R/A; rv 20:58 Body Mass Index 30.90 (81.65 kg, 162.56 cm) ca1 MDM: 21:18 Patient medically screened. kb 22:19 Data reviewed: vital signs, nurses notes. Data interpreted: Pulse oximetry: on room air kb is 97 %. Interpretation: normal. Counseling: I had a detailed discussion with the patient and/or guardian regarding: the historical points, exam findings, and any diagnostic results supporting the discharge/admit diagnosis, the need for outpatient follow up, a neurologist, to return to the emergency department if symptoms worsen or persist or if there are any questions or concerns that arise at home. Administered Medications: 21:55 Drug: fentaNYL (PF) 50 mcg {Note: rass 0.} Route: IM; Site: right deltoid; rv 22:24 Follow up: Response: No adverse reaction; Pain is unchanged, physician notified; RASS: rv Restless (+1) 22:36 Drug: [place] 10 mg-325 mg 1 tabs {Note: rass 1.} Route: PO; rv 23:31 Follow up: Response: Medication administered at discharge. rv Disposition: 07/09 00:08 Co-signature as Attending Physician, Derek Almonte MD. rn Disposition: 07/09/19 22:43 Discharged to Home. Impression: Trigeminal neuralgia. - Condition is Stable. - Discharge Instructions: Trigeminal Neuralgia. - Medication Reconciliation Form, Thank You Letter, Antibiotic Education, Prescription Opioid Use form. - Follow up: Emergency Department; When: As needed; Reason: Worsening of condition. Follow up: Private Physician; When: 2 - 3 days; Reason: Recheck today's complaints, Continuance of care, Re-evaluation by your physician. Signatures: Trinidad Reed, SPANISH SPEAKING NANNY-C SPANISH SPEAKING NANNY-Ckb Derek Almonte MD MD rn Vicente, Ronaldo, RN RN rv Summer Besnon RN RN ca1 Corrections: (The following items were deleted from the chart) 07/08 22:40 22:34 Constitutional: Negative for fever, chills, and weight loss, Cardiovascular: kb Negative for chest pain, palpitations, and edema, Respiratory: Negative for shortness of breath, cough, wheezing, and pleuritic chest pain, Abdomen/GI: Negative for abdominal pain, nausea, vomiting, diarrhea, and constipation, kb 23:24 22:43 07/09/2019 22:43 Discharged to Home. Impression: Trigeminal neuralgia. Condition rv is Stable. Forms are Medication Reconciliation Form, Thank You Letter, Antibiotic Education, Prescription Opioid Use. Follow up: Emergency Department; When: As needed; Reason: Worsening of condition. Follow up: Private Physician; When: 2 - 3 days; Reason: Recheck today's complaints, Continuance of care, Re-evaluation by your physician. kb
[2019-07-09 23:30] VITALS: TEMP 98.4
[2019-07-09 23:31] VITALS: O2SAT 100
[2019-07-09 23:32] VITALS: BP 108/72
== END 2019-07-09 23:24 | disposition home or self-care (01) ==
LOC: ER 20:41
DX: G50.0 Trigeminal neuralgia (principal); F17.210 Nicotine dependence, cigarettes, uncomplicated; Z79.82 Long term (current) use of aspirin; Z88.1 Allergy status to other antibiotic agents; Z88.5 Allergy status to narcotic agent; Z95.818 Presence of other cardiac implants and grafts
CPT/HCPCS: 96372; 99284; J3010